=== PATIENT | female | born 1940 | race African-American/Black ===

== ENCOUNTER 2019-04-17 05:15 | Inpatient (IN) | payer MEDICARE, OTHER ==
[~2019-04-17] VITALS: Ht 165.1 cm; Wt 63.5 kg
[~2019-04-17 05:15] MED LIST: AMLO10TA4 PO; DIGO125T PO; LISI1TAB5 PO; METO1TAB11 PO; POTA20TA82 PO; PRAV40TA2 PO; RANI-376 PO; VENTOLIN HFA18 GM IH
[2019-04-17 05:52] LABS: BASO % 1 % (0-3); EOS % 0 % (0-3); HEMATOCRIT 50.7 % (36.0-47.0); HEMOGLOBIN 17.4 g/dL (12.0-15.5); LYMPH % 11 % (24-48); MEAN CORPUSCULAR HEMOGLOBIN 33 pg (25-35); MEAN CORPUSCULAR HGB CONC 34 g/dL (31-37); MEAN CORPUSCULAR VOLUME 95 fL (79-100); MONO # 0.9 x10^3/uL (0.0-1.1); MONO % 11 % (0-9); NEUT # 6.5 x10^3uL (1.8-7.7); NEUT % 77 % (31-73); PLATELET COUNT 193 x10^3/uL (140-400); RED BLOOD COUNT 5.35 x10^6/uL (3.50-5.40); RED CELL DISTRIBUTION WIDTH 14.9 % (11.5-14.5); WHITE BLOOD COUNT 8.4 x10^3/uL (4.0-11.0)
--- NOTE | 2019-04-17 05:52 | PHYS DOC ---
Past Medical History Past Medical History: A-Fib Additional Past Medical Histor: colon cancer (MAGDA RICE Jr., DO) Past Surgical History: Other Additional Past Surgical Histo: STOMACH AND COLON SURGERY FOR CA (MAGDA RICE Jr., DO) Alcohol Use: None Drug Use: None (MAGDA RICE Jr., DO) Smokin Pack Per Day (GIRALDO,PJ Ann Marie DO) Adult General Chief Complaint Chief Complaint: MULTIPLE COMPLAINTS HPI HPI Patient is an 79-year-old female who presents with complaint of cough and shortness of breath that is been present for last few days, since . Patient states that she actually has had shortness of breath for a long time but states that was when things had gotten to the point where it was almost intolerable. She states that she just feels like she can't get enough air and at this point. Patient denies any chest pain or fever. She also denies any lower extremity pain but does state that she has some swelling in her legs.[] (MAGDA RICE Jr., DO) Review of Systems Review of Systems Constitutional: Denies fever or chills [] Respiratory: Positive cough and shortness of breath [] Cardiovascular: No additional information not addressed in HPI [] GI: Denies abdominal pain, nausea, vomiting or diarrhea [] Integument: Denies rash or skin lesions [] Neurologic: Denies headache, focal weakness or sensory changes [] All other systems were reviewed and found to be within normal limits, except as documented in this note. (MAGDA RICE Jr., DO) Current Medications Current Medications Current Medications Medications (Trade) Dose Ordered Sig/Jamee Start Time Stop Time Status Last Admin Dose Admin Furosemide (Lasix) 40 mg 1X ONCE 04/17/19 07:00 04/17/19 07:01 DC 04/17/19 06:54 40 MG Info (CONTRAST GIVEN -- Rx MONITORING) 1 each PRN DAILY PRN 04/17/19 07:30 04/19/19 07:29 Iohexol (Omnipaque 350 Mg/ml) 75 ml 1X ONCE 04/17/19 07:30 04/17/19 07:31 DC 04/17/19 07:30 75 ML Metoprolol Tartrate (Lopressor Vial) 5 mg 1X ONCE 04/17/19 07:15 04/17/19 07:16 DC 04/17/19 07:14 5 MG Nitroglycerin (Nitro-Bid Oint) 1 inch STK-MED ONCE 04/17/19 06:50 04/17/19 06:51 DC (PJ GIRALDO DO) Allergies Allergies Allergies Coded Allergies Type Severity Reaction Last Updated Verified No Known Drug Allergies 03/17/14 No (PJ GIRALDO DO) Physical Exam Physical Exam Constitutional: Well developed, well nourished, no acute distress, non-toxic appearance. [] HENT: Normocephalic, atraumatic, bilateral external ears normal, oropharynx moist, no oral exudates, nose normal. [] Eyes: PERRLA, EOMI, conjunctiva normal, no discharge. [] Neck: Normal range of motion, no tenderness, supple, no stridor. [] Cardiovascular: Tachycardic rate with irregular rhythm[] Lungs & Thorax: Fine rhonchi are noted bilaterally, left greater than right to auscultation [] Abdomen: Bowel sounds normal, soft, no tenderness. [] Skin: Warm, dry, no erythema, no rash. [] Extremities: No tenderness, no cyanosis, no clubbing, ROM intact, with nonpitting edema. [] Neurologic: Alert and oriented X 3, no focal deficits noted. [] (MAGDA RICE Jr. DO) Current Patient Data Vital Signs Vital Signs Date Time Temp Pulse Resp B/P (MAP) Pulse Ox O2 Delivery O2 Flow Rate FiO2 04/17/19 07:30 88 34 175/116 (135) 96 Room Air 04/17/19 05:20 98.7 98.7 (PJ GIRALDO DO) Lab Values Laboratory Tests Test 04/17/19 05:35 White Blood Count 8.4 x10^3/uL (4.0-11.0) Red Blood Count 5.35 x10^6/uL (3.50-5.40) Hemoglobin 17.4 g/dL (12.0-15.5) H Hematocrit 50.7 % (36.0-47.0) H Mean Corpuscular Volume 95 fL (79-100) Mean Corpuscular Hemoglobin 33 pg (25-35) Mean Corpuscular Hemoglobin Concent 34 g/dL (31-37) Red Cell Distribution Width 14.9 % (11.5-14.5) H Platelet Count 193 x10^3/uL (140-400) Neutrophils (%) (Auto) 77 % (31-73) H Lymphocytes (%) (Auto) 11 % (24-48) L Monocytes (%) (Auto) 11 % (0-9) H Eosinophils (%) (Auto) 0 % (0-3) Basophils (%) (Auto) 1 % (0-3) Neutrophils # (Auto) 6.5 x10^3uL (1.8-7.7) Lymphocytes # (Auto) 1.0 x10^3/uL (1.0-4.8) Monocytes # (Auto) 0.9 x10^3/uL (0.0-1.1) Eosinophils # (Auto) 0.0 x10^3/uL (0.0-0.7) Basophils # (Auto) 0.0 x10^3/uL (0.0-0.2) D-Dimer (Tierney) 0.31 ug/mlFEU (0.00-0.50) Sodium Level 130 mmol/L (136-145) L Potassium Level 3.4 mmol/L (3.5-5.1) L Chloride Level 91 mmol/L (98-107) L Carbon Dioxide Level 30 mmol/L (21-32) Anion Gap 9 (6-14) Blood Urea Nitrogen 14 mg/dL (7-20) Creatinine 1.0 mg/dL (0.6-1.0) Estimated GFR (Cockcroft-Gault) 64.6 BUN/Creatinine Ratio 14 (6-20) Glucose Level 143 mg/dL (70-99) H Calcium Level 9.7 mg/dL (8.5-10.1) Total Bilirubin 0.7 mg/dL (0.2-1.0) Aspartate Amino Transferase (AST) 46 U/L (15-37) H Alanine Aminotransferase (ALT) 30 U/L (14-59) Alkaline Phosphatase 142 U/L (46-116) H Troponin I Quantitative 0.028 ng/mL (0.000-0.055) XZ-Tbp-O-Type Natriuretic Peptide 3358 pg/mL (0-449) H Total Protein 8.2 g/dL (6.4-8.2) Albumin 3.7 g/dL (3.4-5.0) Albumin/Globulin Ratio 0.8 (1.0-1.7) L Digoxin Level 0.4 ng/mL (0.9-2.0) L Digoxin Last Dose Date Unknown Digoxin Last Dose Time Unknown Laboratory Tests 04/17/19 05:35 Laboratory Tests 04/17/19 05:35 (PJ GIRALDO DO) EKG EKG [] Interpretation Time: EKG demonstrates tachycardia with rate of 125. (MAGDA RICE Jr., DO) Radiology/Procedures Radiology/Procedures [] (MAGDA RICE Jr., DO) Radiology/Procedures [facility] [address] [place] [address] IMAGING REPORT Signed PATIENT: VALE AVALOS ACCOUNT: [id number] : 1940 LOCATION: ER AGE: 79 SEX: F EXAM STATUS: REG ER ORD. PHYSICIAN: PJ GIRALDO DO REASON: shortness of air, worsening PROCEDURE: CT ANGIOGRAPHY CHEST CTA of the chest with contrast, 04/17/2019: HISTORY: Shortness of breath Multidetector CT imaging was performed following an IV bolus injection of iodinated contrast material. Multiplanar reconstructions were produced including coronal and sagittal MIP images. No filling defects are seen in the central pulmonary arteries to suggest pulmonary emboli. There is moderate calcific plaquing of the thoracic aorta and its branches including the coronary arteries. The heart is generally enlarged. There are mediastinal and hilar calcifications compatible with old granulomatous disease. There are mildly prominent precarinal, subcarinal and right hilar lymph nodes. The precarinal node measures 1.3 cm in short axis dimension. There are scattered pulmonary lucencies, particularly in the upper lobes compatible with emphysema. There are scattered linear parenchymal scars. There are more prominent streaky parenchymal opacities in the inferior aspect of the right middle lobe abutting the oblique fissure compatible with atelectasis and/or scarring. Calcifications in both lungs are compatible with old granulomatous disease. There is a 1.5 cm noncalcified pulmonary nodule in the lateral aspect of the right upper lobe. No other pulmonary mass is seen. There is no evidence of pleural fluid. There is slight focal pleural thickening in the posterior costophrenic angle on the right. Moderate multilevel degenerative changes are present in the spine. IMPRESSION: 1. No CT evidence of central pulmonary emboli. 2. Right upper lobe pulmonary nodule suggesting a primary or secondary malignancy. 3. Emphysema with parenchymal scarring. 4. Streaky atelectasis and/or scarring in the right middle lobe. 5. Mild mediastinal and right hilar adenopathy. 6. Calcific plaquing of the aorta and coronary arteries. PQRS Compliance Statement: One or more of the following individualized dose reduction techniques were utilized for this examination: 1. Automated exposure control 2. Adjustment of the mA and/or kV according to patient size 3. Use of iterative reconstruction technique Electronically signed by: Praveen Gilmore MD (04/17/2019 8:25 AM) [facility] DICTATED and SIGNED BY: PRAVEEN GILMORE MD DATE: 04/17/19824 (PJ GIRALDO DO) Course & Med Decision Making Course & Med Decision Making Pertinent Labs and Imaging studies reviewed. (See chart for details) Patient moved to room upon arrival was evaluated by your medical staff after which an IV was established and blood work was drawn. At this time, patient's workup is pending and patient is being signed out to the oncoming ER physician at 6:00 AM. (MAGDA RICE Jr., DO) Dragon Disclaimer Dragon Disclaimer This electronic medical record was generated, in whole or in part, using a voice recognition dictation system. (MAGDA RICE Jr., DO) Departure Departure Impression: Primary Impression: COPD exacerbation Additional Impressions: Acute pulmonary edema HTN (hypertension) Disposition: ADMITTED INPATIENT Admitting Physician: Jose Rincon (PJ GIRALDO DO) Condition: STABLE Referrals: TOM KIRK (PCP) Problem Qualifiers MAGDA RICE Jr., DO Apr 17, 2019 05:52 PJ GIRALDO DO Apr 17, 2019 08:39
[2019-04-17 06:04] LABS: CALCIUM 9.7 mg/dL (8.5-10.1); GFR 64.6; POTASSIUM 3.4 mmol/L (3.5-5.1)
[2019-04-17 06:10] LABS: ALBUMIN 3.7 g/dL (3.4-5.0); ALBUMIN/GLOBULIN RATIO 0.8 (1.0-1.7); TOTAL BILIRUBIN 0.7 mg/dL (0.2-1.0); TOTAL PROTEIN 8.2 g/dL (6.4-8.2)
--- NOTE | 2019-04-17 06:31 | RAD ---
Chest AP portable at 0526: Reason for examination: Short of breath. Comparison is made to previous study dated 03/25/2014. The heart size is enlarged. Mediastinum is unremarkable. Lung hco show a 1.5 cm nodule in the right upper lobe. There is also some mild haziness at the right apex which may reflect some infiltrate. No pleural effusions are seen. No acute bony abnormalities are seen. IMPRESSION: Cardiomegaly. 1.5 cm nodule in the right upper lobe. Hazy density at the right apex which may reflect infiltrate. Electronically signed by: Inga Rich MD (04/17/2019 6:28 AM) [id number]
--- NOTE | 2019-04-17 06:46 | EKG ---
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
[2019-04-17] MEDS ORDERED: NITROGLYCERIN OINT 1 GM PACKET. ONE (06:50)
[2019-04-17] MEDS ORDERED: FUROSEMIDE 40 MG/4 ML VIAL. IVP ONE (07:00)
[2019-04-17] MEDS ORDERED: NITROGLYCERIN OINT 1 GM PACKET. TP ONE (07:00)
[2019-04-17 07:09] LABS: DIG 0.4 ng/mL (0.9-2.0)
[2019-04-17] MEDS ORDERED: METOPROLOL TARTRATE 5 MG/5 ML VIAL. IVP ONE ×2 (07:15→09:15)
[2019-04-17] MEDS ORDERED: CONTRAST GIVEN. MC PRN (07:30)
[2019-04-17] MEDS ORDERED: IOHEXOL 350 MG/ML 100 ML VIAL. IV ONE (07:30)
--- NOTE | 2019-04-17 08:28 | RAD ---
CTA of the chest with contrast, 04/17/2019: HISTORY: Shortness of breath Multidetector CT imaging was performed following an IV bolus injection of iodinated contrast material. Multiplanar reconstructions were produced including coronal and sagittal MIP images. No filling defects are seen in the central pulmonary arteries to suggest pulmonary emboli. There is moderate calcific plaquing of the thoracic aorta and its branches including the coronary arteries. The heart is generally enlarged. There are mediastinal and hilar calcifications compatible with old granulomatous disease. There are mildly prominent precarinal, subcarinal and right hilar lymph nodes. The precarinal node measures 1.3 cm in short axis dimension. There are scattered pulmonary lucencies, particularly in the upper lobes compatible with emphysema. There are scattered linear parenchymal scars. There are more prominent streaky parenchymal opacities in the inferior aspect of the right middle lobe abutting the oblique fissure compatible with atelectasis and/or scarring. Calcifications in both lungs are compatible with old granulomatous disease. There is a 1.5 cm noncalcified pulmonary nodule in the lateral aspect of the right upper lobe. No other pulmonary mass is seen. There is no evidence of pleural fluid. There is slight focal pleural thickening in the posterior costophrenic angle on the right. Moderate multilevel degenerative changes are present in the spine. IMPRESSION: 1. No CT evidence of central pulmonary emboli. 2. Right upper lobe pulmonary nodule suggesting a primary or secondary malignancy. 3. Emphysema with parenchymal scarring. 4. Streaky atelectasis and/or scarring in the right middle lobe. 5. Mild mediastinal and right hilar adenopathy. 6. Calcific plaquing of the aorta and coronary arteries. PQRS Compliance Statement: One or more of the following individualized dose reduction techniques were utilized for this examination: 1. Automated exposure control 2. Adjustment of the mA and/or kV according to patient size 3. Use of iterative reconstruction technique Electronically signed by: Praveen Gilmore MD (04/17/2019 8:25 AM) [facility]
[2019-04-17] MEDS ORDERED: IPRATRPIUM/ALBUTEROL 0.5/2.5MG 3 ML NEBU. NEB ONE (09:00)
[2019-04-17] MEDS ORDERED: methylPREDNISolone SOD SUCC PF 125 MG/2 ML VIAL. IV ONE (09:00)
[2019-04-17] MEDS ORDERED: ONDANSETRON PF 4 MG/2 ML VIAL. IV PRN (09:00)
[2019-04-17] MEDS ORDERED: amLODIPine BESYLATE 5 MG TABLET PO ONE (09:15)
[2019-04-17 09:58] VITALS: BP 193/118
--- NOTE | 2019-04-17 10:02 | PDOC2 ---
HOLLY MORAN MARKETING PRODUCTION COORDINATOR 04/17/19 1002: CARDIAC CONSULT DATE OF CONSULT Date of Consult DATE: 04/17/19 TIME: 09:57 REASON FOR CONSULT Reason for Consult: CHF REFERRING PHYSICIAN Referring Physician: Dr. Rapp SOURCE Source: Chart review, Patient HISTORY OF PRESENT ILLNESS HISTORY OF PRESENT ILLNESS This is an 79 yo female who presented secondary to shortness of breath. Patient reports shortness of breath has been present for over a year, but was signi ficantly worse over the weekend. Has non-productive cough. No fevers/chills. No significant LE edema. No chest pain, palpitations, dizziness, diaphoresis, or nausea/vomiting. No specific orthopnea, but has been unable to sleep due to breathing. Is somewhat of a poor historian. PAST MEDICAL HISTORY Cardiovascular: AFIB (paroxysmal ), HTN Pulmonary: Pneumonia CENTRAL NERVOUS SYSTEM: CVA GI: Peptic Ulcer disease Heme/Onc: Cancer (colon) Hepatobiliary: No pertinent hx Psych: Anxiety Musculoskeletal: Osteoarthritis Rheumatologic: No pertinent hx Infectious disease: No pertinent hx ENT: No pertinent hx Renal/: No pertinent hx Endocrine: No pertinent hx Dermatology: No pertinent hx PAST SURGICAL HISTORY Past Surgical History: Hysterectomy, Colon Resection, Other (gastrectomy) FAMILY HISTORY Family History: Other (no pertinent hx) SOCIAL HISTORY Smoke: 1 pack per day ALCOHOL: none Drugs: None Lives: Alone CURRENT MEDICATIONS CURRENT MEDICATIONS Current Medications Medications (Trade) Dose Ordered Sig/Jamee Route PRN Reason Start Time Stop Time Status Last Admin Dose Admin Furosemide (Lasix) 40 mg 1X ONCE IVP 04/17/19 07:00 04/17/19 07:01 DC 04/17/19 06:54 Nitroglycerin (Nitro-Bid Oint) 1 inch 1X ONCE TP 04/17/19 07:00 04/17/19 07:01 DC 04/17/19 06:59 Metoprolol Tartrate (Lopressor Vial) 5 mg 1X ONCE IVP 04/17/19 07:15 04/17/19 07:16 DC 04/17/19 07:14 Iohexol (Omnipaque 350 Mg/ml) 75 ml 1X ONCE IV 04/17/19 07:30 04/17/19 07:31 DC 04/17/19 07:30 Methylprednisolone Sodium Succinate (SOLU-Medrol 125MG VIAL) 125 mg 1X ONCE IV 6/10/19 09:00 04/17/19 09:01 DC 04/17/19 09:12 Albuterol/ Ipratropium (Duoneb) 3 ml 1X ONCE NEB 04/17/19 09:00 04/17/19 09:01 DC 04/17/19 09:10 Metoprolol Tartrate (Lopressor Vial) 5 mg 1X ONCE IVP 04/17/19 09:15 04/17/19 09:16 DC 04/17/19 09:13 ALLERGIES ALLERGIES: Coded Allergies: No Known Drug Allergies (Unverified , 03/17/14) ROS Review of System 14 point ROS conducted with pertinent positives noted above in HPI. PHYSICAL EXAM General: Alert, Oriented X3, Cooperative, No acute distress HEENT: Atraumatic, Mucous membr. moist/pink Lungs: Other (expiratroy wheezing) Heart: Normal S1, Normal S2, Other (IRR; tele AFIB rate near 90) Abdomen: Soft, No tenderness Extremities: No edema, Normal pulses Skin: No significant lesion Neuro: Normal speech, Sensation intact Psych/Mental Status: Mental status NL, Mood NL MUSCULOSKELETAL: Osteoarthritic changes both hands VITALS VITALS Vital Signs Date Time Temp Pulse Resp B/P (MAP) Pulse Ox O2 Delivery O2 Flow Rate FiO2 04/17/19 09:13 110 182/126 04/17/19 09:11 91 Room Air 04/17/19 09:00 35 04/17/19 05:20 98.7 98.7 LABS Lab: Laboratory Tests Test 04/17/19 05:35 White Blood Count 8.4 x10^3/uL (4.0-11.0) Red Blood Count 5.35 x10^6/uL (3.50-5.40) Hemoglobin 17.4 g/dL (12.0-15.5) Hematocrit 50.7 % (36.0-47.0) Mean Corpuscular Volume 95 fL (79-100) Mean Corpuscular Hemoglobin 33 pg (25-35) Mean Corpuscular Hemoglobin Concent 34 g/dL (31-37) Red Cell Distribution Width 14.9 % (11.5-14.5) Platelet Count 193 x10^3/uL (140-400) Neutrophils (%) (Auto) 77 % (31-73) Lymphocytes (%) (Auto) 11 % (24-48) Monocytes (%) (Auto) 11 % (0-9) Eosinophils (%) (Auto) 0 % (0-3) Basophils (%) (Auto) 1 % (0-3) Neutrophils # (Auto) 6.5 x10^3uL (1.8-7.7) Lymphocytes # (Auto) 1.0 x10^3/uL (1.0-4.8) Monocytes # (Auto) 0.9 x10^3/uL (0.0-1.1) Eosinophils # (Auto) 0.0 x10^3/uL (0.0-0.7) Basophils # (Auto) 0.0 x10^3/uL (0.0-0.2) D-Dimer (Tierney) 0.31 ug/mlFEU (0.00-0.50) Sodium Level 130 mmol/L (136-145) Potassium Level 3.4 mmol/L (3.5-5.1) Chloride Level 91 mmol/L (98-107) Carbon Dioxide Level 30 mmol/L (21-32) Anion Gap 9 (6-14) Blood Urea Nitrogen 14 mg/dL (7-20) Creatinine 1.0 mg/dL (0.6-1.0) Estimated GFR (Cockcroft-Gault) 64.6 BUN/Creatinine Ratio 14 (6-20) Glucose Level 143 mg/dL (70-99) Calcium Level 9.7 mg/dL (8.5-10.1) Total Bilirubin 0.7 mg/dL (0.2-1.0) Aspartate Amino Transf (AST/SGOT) 46 U/L (15-37) Alanine Aminotransferase (ALT/SGPT) 30 U/L (14-59) Alkaline Phosphatase 142 U/L (46-116) Troponin I Quantitative 0.028 ng/mL (0.000-0.055) MU-Jwc-[id number]-Type Natriuretic Peptide 3358 pg/mL (0-449) Total Protein 8.2 g/dL (6.4-8.2) Albumin 3.7 g/dL (3.4-5.0) Albumin/Globulin Ratio 0.8 (1.0-1.7) Digoxin Level 0.4 ng/mL (0.9-2.0) Digoxin Last Dose Date Unknown Digoxin Last Dose Time Unknown ECHOCARDIOGRAM ECHOCARDIOGRAM <Conclusion> The left ventricular systolic function is normal. The Ejection Fraction is 55- 60%. The aortic valve is thickened and calcified but opens well. Doppler and Color-flow revealed trace to mild mitral regurgitation. Doppler and Color Flow revealed mild tricuspid regurgitation. Right ventricular systolic pressure is calculated at 40-45 mmHg DATE: 03/13/14 1736 ASSESSMENT/PLAN ASSESSMENT/PLAN 1. Acute respiratory failure with suspected AE COPD. NT Pro BNP mildly elevated, but imaging without significant pleural fluid. Received IV Lasix in ED. 2. Accelerated hypertension; remains labile 3. Mild acute diastolic HF 4. PAFIB; intermittent RVR in ED. presently AFIB with cotrolled rate. On Eliquis for stroke prevention 5. Abnormal CT chest; RUL nodule suggesting a primary or secondary malignancy. 6. CAD; noted on chest CTA. CP free 7. Hyperlipidemia; statin 8. Hyponatremia 9. Hypokalemia 10. H/o CVA 11. Tobaccoism; discussed/encouraged cessation Recommendations Echo to assess LV systolic function Metoprolol for rate control Resume home antiHTN; titrate as warranted. Hydralazine IV PRN Hold OAC for now pending pulmonary evaluation given new lung nodule and possible biopsy. Consider outpatient ischemic evaluation ALEX LOVING MD 04/17/196: CARDIAC CONSULT ASSESSMENT/PLAN ASSESSMENT/PLAN Pt. seen and examined. 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 Supportive care. HOLLY MORAN APRN Apr 17, 2019 10:02 ALEX LOVING MD Apr 17, 2019 21:16
[2019-04-17] MEDS ORDERED: MAGNESIUM HYDROXIDE 2,400 MG/30 ML ORAL.SUSP. PO PRN (10:15)
[2019-04-17] MEDS ORDERED: hydrALAZINE 20 MG/ML VIAL. IVP PRN (10:15)
[2019-04-17] MEDS ORDERED: POTASSIUM CHLORIDE 20 MEQ TABLET.ER. PO ONE (10:15)
[2019-04-17] MEDS ORDERED: ACETAMINOPHEN 325 MG TABLET. PO PRN (10:15)
[2019-04-17] MEDS ORDERED: ONDANSETRON ODT 4 MG TAB.RAPDIS. PO PRN (10:15)
--- NOTE | 2019-04-17 10:17 | PDOC ---
Provider Note Provider Note history and physical dictated # [id number] RIK MURRAY MD Apr 17, 2019 10:17
[2019-04-17 10:26] LABS: CHOLESTEROL/HDL RATIO 1.9
[2019-04-17] MEDS: amLODIPine BESYLATE 10 MG TABLET PO SCH (10:48)
[2019-04-17 10:52] VITALS: BP 168/109
--- NOTE | 2019-04-17 10:57 | HP ---
ADMIT DATE: 04/17/2019 LOCATION: She is in room 203. 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 She has had a dry cough. Denies any wheezing or fever or chills. In the Emergency Room, she was noted to be in atrial fibrillation. EKG showed a ventricular rate of 125, but her heart rate was around 80s to low 90s when I saw her in the exam room in atrial fibrillation. She denied any chest pain. As mentioned, she had a dry cough with no sputum. During her workup in the Emergency Room, she had a chest x-ray done, which showed a 1.5 cm right upper lobe lung nodule and hazy density in the right apex with cardiomegaly. A CAT scan of the chest, angiogram was also ordered by the Emergency Room doctor, which showed a right upper lobe pulmonary nodule that was 1.5 cm in size, suggesting a primary or secondary malignancy. She also had emphysema with lung scarring and some streaky atelectasis and scarring in right middle lobe with mild mediastinal and right hilar adenopathy and calcific plaquing of the aorta and coronary arteries. She was admitted to the hospital for further evaluation and treatment of the shortness of breath and right upper lobe lung nodule. ALLERGIES AND INTOLERANCES: None. It should be noted that she also has accelerated hypertension. Her blood pressure was quite high in the Emergency Room. MEDICATIONS: Include amlodipine 10 mg every day, aspirin 81 mg every day, Flexeril 5 mg every 8 hours p.r.n. for leg cramps, digoxin 0.125 mg every day, Eliquis 5 mg b.i.d., lisinopril HCT 20/12.5 two tablets every day, metoprolol tartrate 50 mg b.i.d., potassium chloride 20 mEq every day, pravastatin 40 mg every day, ProAir inhaler p.r.n. and Zantac 150 mg every day. PAST MEDICAL HISTORY: Significant for perforated gastric ulcer, treated with a gastrectomy in 2009, hypertension, colon polyps in 2011. She has a history of colon cancer with the sigmoid colectomy in 2009, hysterectomy, cerebrovascular accident with late effects of right-sided hemiparesis and her last EGD was 2010. She has paroxysmal atrial fibrillation. SOCIAL HISTORY: She does not drink alcohol. Smokes 1 pack per day of cigarettes. FAMILY HISTORY: Noncontributory. REVIEW OF SYSTEMS: GENERAL: No fever, chills or sweats in the last 3 days. CARDIOVASCULAR: No chest pain. PULMONARY: She had the shortness of breath and dry cough. GASTROINTESTINAL: No diarrhea. ENDOCRINE: No diabetes mellitus. SKIN: No rashes. The rest of systems reviewed are negative except as stated in history of present illness. PHYSICAL EXAMINATION: VITAL SIGNS: Temperature is 98.5 degrees, apical pulse is irregular at 96, respiratory rate is 18, blood pressure is 193/119. Oxygen saturation 94% on room air. HEENT: Eyes, gaze is conjugate. Extraocular muscles are intact. Mouth: Tongue is midline without yeast. She is edentulous. NECK: No cervical lymphadenopathy or JVD. HEART: Reveals an S1, S2. There is no S3 or murmur. LUNGS: Reveal decreased breath sounds bilaterally. I did not hear any crackles or wheezes. ABDOMEN: Soft, nontender. There is no hepatosplenomegaly, masses or tenderness. EXTREMITIES: Lower extremities without edema. SKIN: No rashes. NEUROLOGIC: Revealed no facial weakness. She has got good bilateral handgrips and biceps strength. Able to dorsi and plantarflex both feet, bend her knees and raise her legs up in the air symmetrically. LABORATORY DATA: Reviewed of her laboratory tests, her white count was 8.4, hemoglobin 17.4, platelet count 193,000, 77 polys and 11 lymphocytes. D-dimer was 0.31. Sodium 130, potassium 3.4, chloride 91, total CO2 was 30, BUN 14, creatinine 1.0. SGOT was 46, SGPT of 30, alkaline phosphatase 142, total bilirubin 0.7. Troponin levels 0.028 and proBNP was 3358, albumin 3.7. The CAT scan of the chest angiogram and chest x-ray as stated above. Electrocardiogram showed atrial fibrillation. The Emergency Room physician gave her 40 mg Lasix IV and gave her metoprolol 0.5 mg IV x 1 and DuoNeb nebulizer treatment. We gave her amlodipine 10 mg x 1. ASSESSMENT: 1. Acute exacerbation of chronic obstructive pulmonary disease. I do not see any evidence of congestive heart failure clinically. 2. Paroxysmal atrial fibrillation. She had an increased ventricular rate and atrial fibrillation in the Emergency Room and ventricular rate is controlled. 3. Right upper lobe lung nodule. 4. Accelerated hypertension. 5. Hypokalemia. 6. Hyponatremia. 7. Coronary artery disease noted on a CAT scan of the chest. PLAN: At this time is to consult Dr. Rubalcava for Pulmonary and Dr. Funk for Cardiology. We will get an echocardiogram. We will order Lovenox for deep vein thrombosis prophylaxis. We will put her on ipratropium nebulizer treatments and avoid the albuterol, which can cause an increased heart rate and atrial fibrillation. We will also put her on some IV Solu-Medrol. She has a right upper lobe lung nodule, and we will defer that evaluation to the media promoter. We will give her some potassium chloride. We will hold off on further furosemide. Increase her metoprolol to try to control her ventricular rate. We will have to watch for any wheezing or COPD. She also needs to quit smoking cigarettes. RIK MURRAY MD DR: PATRICIA/kaya JOB#: [id number] / [id number]
[2019-04-17] MEDS ORDERED: APIXABAN 5 MG TABLET. PO SCH (11:00)
[2019-04-17] MEDS ORDERED: METOPROLOL TART IMMED RELEASE 50 MG TABLET. PO SCH (11:00)
[2019-04-17] MEDS: NICOTINE 21MG PATCH. TD SCH (11:00)
[2019-04-17] MEDS ORDERED: ENOXAPARIN 40 MG/0.4 ML SYRINGE. SQ SCH (11:00)
[2019-04-17] MEDS ORDERED: methylPREDNISolone SOD SUCC PF 40 MG/ML VIAL. IV SCH (11:00)
--- NOTE | 2019-04-17 11:00 | NUR ---
Patient arrived to room 203 from ER via bed, patient transferred to our bed with minimal assist. Patient afib on the monitor with controlled rate, patient alert and oriented, unit routines explained. Call light within reach, will continue to monitor.
[2019-04-17] MEDS: DIGOXIN 125 MCG TABLET. PO SCH (11:35)
[2019-04-17] MEDS: MULTIVITAMIN with MINERAL TABLET. PO SCH (11:36)
[2019-04-17] MEDS: ASPIRIN CHEWABLE 81 MG TABLET. PO SCH (11:36)
[2019-04-17] MEDS: LISINOPRIL 20 MG TABLET PO SCH (11:39)
[2019-04-17] MEDS: ENOXAPARIN 30 MG/0.3 ML SYRINGE. SQ SCH (11:39)
[2019-04-17] MEDS: hydroCHLOROthiazide 25 MG TABLET PO SCH (11:39)
[2019-04-17] MEDS ORDERED: IPRATRPIUM/ALBUTEROL 0.5/2.5MG 3 ML NEBU. NEB SCH (12:00)
--- NOTE | 2019-04-17 14:58 | CARD ---
MR#: [id number] Date of Study: 04/17/2019 Ordering Physician: HOLLY MORAN, Referring Physician: RIK MURRAY Tech: Tila Brooks RDCS APPROVED REPORT EXAM: Two-dimensional and M-mode echocardiogram with Doppler and color Doppler. Other Information Quality : Fair INDICATION Dyspnea 2D DIMENSIONS RVDd2.6 (2.9-3.5cm)Left Atrium(2D)5.2 (1.6-4.0cm) IVSd1.0 (0.7-1.1cm)Aortic Root(2D)2.8 (2.0-3.7cm) LVDd4.1 (3.9-5.9cm)LVOT Diameter2.1 (1.8-2.4cm) PWd1.0 (0.7-1.1cm)LVDs3.4 (2.5-4.0cm) FS (%) 25.0 %SV13.7 ml LVEF(%)50.0 (>50%) Aortic Valve AoV Peak Eliseo.132.0cm/sAoV VTI18.8cm AO Peak GR.7.0mmHgLVOT Peak Eliseo.85.1cm/s LVOT VTI 10.94cmAO Mean GR.4mmHg DANIEL (VMAX)2.94qg1HLW (VTI)1.94cm2 Tricuspid Valve TR P. Kygbwkgm694ik/sRAP EECYZGRI2lhFe TR Peak Gr.75fzUlWYTU27ygTx Pulmonary Vein S1 Ketnrlub57.8cm/sD2 Oloboaio02.2cm/s LEFT VENTRICLE The left ventricle is normal size. There is normal left ventricular wall thickness. The Ejection Frac tion is 50-55%. There is normal LV segmental wall motion. The left ventricular diastolic function and filling is normal for age. RIGHT VENTRICLE The right ventricle is normal size. The right ventricular systolic function is normal. ATRIA The left atrium is severely dilated. The right atrium is moderately dilated. The interatrial septum i s intact with no evidence for an atrial septal defect or patent foramen ovale as noted on 2-D or Dopp ler imaging. AORTIC VALVE The aortic valve is calcified but opens well. Doppler and Color Flow revealed no significant aortic r egurgitation. There is no significant aortic valvular stenosis. MITRAL VALVE The mitral valve is calcified but opens well. There is no evidence of mitral valve prolapse. There is no mitral valve stenosis. Doppler and Color-flow revealed trace mitral regurgitation. TRICUSPID VALVE The tricuspid valve is normal in structure and function. Doppler and Color Flow revealed mild tricusp id regurgitation.There is moderate pulmonary hypertension.The PA pressure was estimated at 45 mmHg. T here is no tricuspid valve stenosis. PULMONIC VALVE The pulmonic valve is not well visualized. Doppler and Color Flow revealed no pulmonic valvular regur gitation. There is no pulmonic valvular stenosis. GREAT VESSELS The aortic root is normal in size. The ascending aorta is normal in size. The IVC was not visualized. PERICARDIAL EFFUSION There is no evidence of significant pericardial effusion. Critical Notification Critical Value: No <Conclusion> The Ejection Fraction is 50-55%. There is normal LV segmental wall motion. The left atrium is severely dilated. Doppler and Color Flow revealed mild tricuspid regurgitation.There is moderate pulmonary hypertension .The PA pressure was estimated at 45 mmHg. Signed by : Matthew Ambriz, Electronically Approved : 04/17/2019 14:57:41
[2019-04-17 15:00] VITALS: BP 153/99
--- NOTE | 2019-04-17 15:21 | PDOC ---
PULMONARY PROGRESS NOTES Vitals Vital Signs Date Time Temp Pulse Resp B/P (MAP) Pulse Ox O2 Delivery O2 Flow Rate FiO2 04/17/19 12:58 94 Nasal Cannula 2.0 04/17/19 11:39 102 209/104 04/17/19 09:58 98.5 18 98.5 Lungs: Clear Labs Laboratory Tests Test 04/17/19 05:35 White Blood Count 8.4 x10^3/uL (4.0-11.0) Red Blood Count 5.35 x10^6/uL (3.50-5.40) Hemoglobin 17.4 g/dL (12.0-15.5) Hematocrit 50.7 % (36.0-47.0) Mean Corpuscular Volume 95 fL (79-100) Mean Corpuscular Hemoglobin 33 pg (25-35) Mean Corpuscular Hemoglobin Concent 34 g/dL (31-37) Red Cell Distribution Width 14.9 % (11.5-14.5) Platelet Count 193 x10^3/uL (140-400) Neutrophils (%) (Auto) 77 % (31-73) Lymphocytes (%) (Auto) 11 % (24-48) Monocytes (%) (Auto) 11 % (0-9) Eosinophils (%) (Auto) 0 % (0-3) Basophils (%) (Auto) 1 % (0-3) Neutrophils # (Auto) 6.5 x10^3uL (1.8-7.7) Lymphocytes # (Auto) 1.0 x10^3/uL (1.0-4.8) Monocytes # (Auto) 0.9 x10^3/uL (0.0-1.1) Eosinophils # (Auto) 0.0 x10^3/uL (0.0-0.7) Basophils # (Auto) 0.0 x10^3/uL (0.0-0.2) D-Dimer (Tierney) 0.31 ug/mlFEU (0.00-0.50) Sodium Level 130 mmol/L (136-145) Potassium Level 3.4 mmol/L (3.5-5.1) Chloride Level 91 mmol/L (98-107) Carbon Dioxide Level 30 mmol/L (21-32) Anion Gap 9 (6-14) Blood Urea Nitrogen 14 mg/dL (7-20) Creatinine 1.0 mg/dL (0.6-1.0) Estimated GFR (Cockcroft-Gault) 64.6 BUN/Creatinine Ratio 14 (6-20) Glucose Level 143 mg/dL (70-99) Calcium Level 9.7 mg/dL (8.5-10.1) Magnesium Level 1.9 mg/dL (1.8-2.4) Total Bilirubin 0.7 mg/dL (0.2-1.0) Aspartate Amino Transf (AST/SGOT) 46 U/L (15-37) Alanine Aminotransferase (ALT/SGPT) 30 U/L (14-59) Alkaline Phosphatase 142 U/L (46-116) Troponin I Quantitative 0.028 ng/mL (0.000-0.055) MW-Lwf-U-Type Natriuretic Peptide 3358 pg/mL (0-449) Total Protein 8.2 g/dL (6.4-8.2) Albumin 3.7 g/dL (3.4-5.0) Albumin/Globulin Ratio 0.8 (1.0-1.7) Triglycerides Level 75 mg/dL (0-150) Cholesterol Level 175 mg/dL (0-200) LDL Cholesterol, Calculated 69 mg/dL (0-100) VLDL Cholesterol, Calculated 15 mg/dL (0-40) Non-HDL Cholesterol Calculated 84 mg/dL (0-129) HDL Cholesterol 91 mg/dL (40-60) Cholesterol/HDL Ratio 1.9 Thyroid Stimulating Hormone (TSH) 0.325 uIU/mL (0.358-3.74) Digoxin Level 0.4 ng/mL (0.9-2.0) Digoxin Last Dose Date Unknown Digoxin Last Dose Time Unknown Laboratory Tests Test 04/17/19 05:35 White Blood Count 8.4 x10^3/uL (4.0-11.0) Red Blood Count 5.35 x10^6/uL (3.50-5.40) Hemoglobin 17.4 g/dL (12.0-15.5) Hematocrit 50.7 % (36.0-47.0) Mean Corpuscular Volume 95 fL (79-100) Mean Corpuscular Hemoglobin 33 pg (25-35) Mean Corpuscular Hemoglobin Concent 34 g/dL (31-37) Red Cell Distribution Width 14.9 % (11.5-14.5) Platelet Count 193 x10^3/uL (140-400) Neutrophils (%) (Auto) 77 % (31-73) Lymphocytes (%) (Auto) 11 % (24-48) Monocytes (%) (Auto) 11 % (0-9) Eosinophils (%) (Auto) 0 % (0-3) Basophils (%) (Auto) 1 % (0-3) Neutrophils # (Auto) 6.5 x10^3uL (1.8-7.7) Lymphocytes # (Auto) 1.0 x10^3/uL (1.0-4.8) Monocytes # (Auto) 0.9 x10^3/uL (0.0-1.1) Eosinophils # (Auto) 0.0 x10^3/uL (0.0-0.7) Basophils # (Auto) 0.0 x10^3/uL (0.0-0.2) D-Dimer (Tierney) 0.31 ug/mlFEU (0.00-0.50) Sodium Level 130 mmol/L (136-145) Potassium Level 3.4 mmol/L (3.5-5.1) Chloride Level 91 mmol/L (98-107) Carbon Dioxide Level 30 mmol/L (21-32) Anion Gap 9 (6-14) Blood Urea Nitrogen 14 mg/dL (7-20) Creatinine 1.0 mg/dL (0.6-1.0) Estimated GFR (Cockcroft-Gault) 64.6 BUN/Creatinine Ratio 14 (6-20) Glucose Level 143 mg/dL (70-99) Calcium Level 9.7 mg/dL (8.5-10.1) Magnesium Level 1.9 mg/dL (1.8-2.4) Total Bilirubin 0.7 mg/dL (0.2-1.0) Aspartate Amino Transf (AST/SGOT) 46 U/L (15-37) Alanine Aminotransferase (ALT/SGPT) 30 U/L (14-59) Alkaline Phosphatase 142 U/L (46-116) Troponin I Quantitative 0.028 ng/mL (0.000-0.055) CU-Sew-D-Type Natriuretic Peptide 3358 pg/mL (0-449) Total Protein 8.2 g/dL (6.4-8.2) Albumin 3.7 g/dL (3.4-5.0) Albumin/Globulin Ratio 0.8 (1.0-1.7) Triglycerides Level 75 mg/dL (0-150) Cholesterol Level 175 mg/dL (0-200) LDL Cholesterol, Calculated 69 mg/dL (0-100) VLDL Cholesterol, Calculated 15 mg/dL (0-40) Non-HDL Cholesterol Calculated 84 mg/dL (0-129) HDL Cholesterol 91 mg/dL (40-60) Cholesterol/HDL Ratio 1.9 Thyroid Stimulating Hormone (TSH) 0.325 uIU/mL (0.358-3.74) Digoxin Level 0.4 ng/mL (0.9-2.0) Digoxin Last Dose Date Unknown Digoxin Last Dose Time Unknown Medications Active Scripts Medications Dose Route/Sig Max Daily Dose Days Date Category Potassium Chloride 20 Meq Tablet.er 40 Meq PO DAILY 03/13/14 Reported Norvasc (Amlodipine Besylate) 10 Mg Tablet 10 Mg PO DAILY 03/13/14 Reported Lisinopril-Hctz 20-12.5 Mg Tab (Lisinopril/Hydrochlorothiazide) 1 Each Tablet 1 Each PO DAILY 03/13/14 Reported Lopressor Hct 50-25 Tablet (Metoprolol/Hydrochlorothiazide) 1 Each Tablet 50 Mg PO DAILY 03/13/14 Reported Digoxin 125 Mcg Tablet 125 Mcg PO DAILY 03/13/14 Reported Pravastatin Sodium 40 Mg Tablet 40 Mg PO DAILY 03/13/14 Reported Zantac (Ranitidine Hcl) 150 Mg Tablet 150 Mg PO DAILY 03/13/14 Reported Ventolin Hfa (Albuterol Sulfate) 18 Gm Hfa.aer.ad 17 Gm IH PRN DAILY PRN 03/13/14 Reported Impression . FULL NOTE DICTATED AECOPD RUL NODULE WILL HOLD ELLIQUIS AND PERFORM A BX SONI LUTZ MD Apr 17, 2019 15:20
[2019-04-17] MEDS ORDERED: IPRATRPIUM/ALBUTEROL 0.5/2.5MG 3 ML NEBU. ONE (15:52)
[2019-04-17] MEDS: IPRATRPIUM/ALBUTEROL 0.5/2.5MG 3 ML NEBU. NEB SCH ×2 (16:00→20:00)
[2019-04-17] MEDS ORDERED: METOPROLOL TARTRATE 5 MG/5 ML VIAL. IVP PRN (18:00)
[2019-04-17 19:27] VITALS: BP 132/89
[2019-04-17] MEDS: FAMOTIDINE 20 MG TABLET. PO SCH (21:08)
[2019-04-17] MEDS: ATORVASTATIN CALCIUM 10 MG TABLET. PO SCH (21:08)
[2019-04-17] MEDS: methylPREDNISolone SOD SUCC PF 40 MG/ML VIAL. IV SCH (21:09)
[2019-04-17] MEDS: METOPROLOL TART IMMED RELEASE 25 MG TABLET. PO SCH (21:09)
[2019-04-17 22:26] VITALS: BP 148/101
--- NOTE | 2019-04-17 23:55 | CONS ---
DATE OF CONSULTATION: 04/17/2019 REASON FOR CONSULTATION: The patient seen in pulmonary consultation at the request of Dr. Rincon for increasing shortness of air, abnormal CT chest. HISTORY OF PRESENT ILLNESS: The patient is an 79-year-old that presented with increasing shortness of air over the last several days, cough mostly nonproductive. She was seen in the Emergency Department and was admitted. Part of her workup included a CT chest. I reviewed the CT chest, revealing a right upper lobe noncalcified nodule measuring 1.5 cm. She also has some precarinal lymph nodes. There were areas of emphysema with parenchymal scarring and some streaky atelectasis in the right middle lobe. I was asked to see in consultation. The patient continues to do smoke and has been smoking for most of her adult life. She denies hemoptysis. No fever, chills, or night sweats. She does not wear oxygen at home. PAST MEDICAL HISTORY: Remarkable for chronic paroxysmal AFib, hypertension, previous pneumonia, previous CVA, peptic ulcer disease, history of colon cancer, status post resection, osteoporosis, and tobacco dependence. PAST SURGICAL HISTORY: Status post hysterectomy, colon cancer resection, and gastrectomy. FAMILY HISTORY: No family history of lung cancer. SOCIAL HISTORY: She denies any excessive alcohol intake. She does smoke. REVIEW OF SYSTEMS: CONSTITUTIONAL: No fever or chills. EYES: No change in visual acuity. HEENT: No nasal congestion or sore throat. PULMONARY: As indicated above. CARDIOVASCULAR: No chest pain. No pressure. GASTROINTESTINAL: No nausea, vomiting, diarrhea. GENITOURINARY: No dysuria or frequency. MUSCULOSKELETAL: No localized muscle aches or joint pains. SKIN: No new skin rashes. NEUROLOGIC: No headaches, diplopia, or blurred vision. ALLERGIES: No known drug allergies. CURRENT MEDICATIONS: List was reviewed. PHYSICAL EXAMINATION: GENERAL: The patient appeared to be of stated age. VITAL SIGNS: She was currently on 2 liters of oxygen supplementation. HEENT: Eyes, the sclerae were nonicteric. NECK: Jugular venous distention was not elevated. No lymphadenopathy. CHEST: Full expansion. LUNGS: Poor breath sounds with rales and wheezes bilaterally. CARDIOVASCULAR: Regular rate and rhythm with S1, S2, no S3. ABDOMEN: Soft, nontender, nondistended. EXTREMITIES: No clubbing, cyanosis. Minimal edema. NEUROLOGIC: The patient was awake, alert, following commands. A detailed neuro exam was not performed. LABORATORY DATA: Reviewed. White count was normal. Electrolytes were noted. BNP was elevated. TSH was low. Chest x-ray and CT as indicated above. Echocardiogram revealed pulmonary artery pressure of 40-45. Ejection fraction 50-60%. IMPRESSION: 1. Acute hypoxemic respiratory failure. 2. Acute exacerbation of chronic obstructive pulmonary disease. 3. Gfryz-zj-upfxcrl diastolic heart failure. 4. Paroxysmal atrial fibrillation. 5. Incidental finding of right upper lobe noncalcified nodule. 6. Coronary artery disease. 7. Hyperlipidemia. 8. Hyponatremia. 9. History of cerebrovascular accident. 10. Colon cancer. 11. Tobacco dependence. PLAN: 1. Recommend treating acute exacerbation of COPD. 2. Diurese per Cardiology. 3. I reviewed the above findings with the patient. I recommend fine needle aspiration, we will hold Eliquis for 3 days. The patient instructed on the importance of discontinuing tobacco use. I do appreciate the privilege in sharing in the patient's care. SONI LUTZ MD DR: LUIS MANUEL/kaya JOB#: [id number] / [id number]
[2019-04-18 03:50] VITALS: BP 141/90
[2019-04-18 06:37] LABS: BASO % 0 % (0-3); EOS % 0 % (0-3); HEMATOCRIT 48.6 % (36.0-47.0); HEMOGLOBIN 16.2 g/dL (12.0-15.5); LYMPH # 0.9 x10^3/uL (1.0-4.8); LYMPH % 9 % (24-48); MEAN CORPUSCULAR HEMOGLOBIN 32 pg (25-35); MEAN CORPUSCULAR HGB CONC 33 g/dL (31-37); MEAN CORPUSCULAR VOLUME 97 fL (79-100); MONO # 0.5 x10^3/uL (0.0-1.1); MONO % 5 % (0-9); NEUT # 7.9 x10^3uL (1.8-7.7); NEUT % 86 % (31-73); PLATELET COUNT 190 x10^3/uL (140-400); RED CELL DISTRIBUTION WIDTH 15.7 % (11.5-14.5); WHITE BLOOD COUNT 9.3 x10^3/uL (4.0-11.0)
[2019-04-18 06:53] LABS: CREATININE 1.4 mg/dL (0.6-1.0); GFR 43.8; POTASSIUM 3.7 mmol/L (3.5-5.1)
[2019-04-18] MEDS: IPRATRPIUM/ALBUTEROL 0.5/2.5MG 3 ML NEBU. NEB SCH ×4 (07:19→20:18)
[2019-04-18 07:42] VITALS: BP 152/105
[2019-04-18] MEDS: POTASSIUM CHLORIDE 20 MEQ TABLET.ER. PO SCH (08:28)
[2019-04-18] MEDS: hydroCHLOROthiazide 25 MG TABLET PO SCH (08:28)
[2019-04-18] MEDS: ASPIRIN CHEWABLE 81 MG TABLET. PO SCH (08:28)
[2019-04-18] MEDS: methylPREDNISolone SOD SUCC PF 40 MG/ML VIAL. IV SCH ×2 (08:28→20:52)
[2019-04-18] MEDS: DIGOXIN 125 MCG TABLET. PO SCH (08:29)
[2019-04-18] MEDS: METOPROLOL TART IMMED RELEASE 25 MG TABLET. PO SCH ×2 (08:29→20:51)
[2019-04-18] MEDS: amLODIPine BESYLATE 10 MG TABLET PO SCH (08:30)
[2019-04-18] MEDS: MULTIVITAMIN with MINERAL TABLET. PO SCH (08:30)
[2019-04-18] MEDS: LISINOPRIL 20 MG TABLET PO SCH (08:30)
[2019-04-18] MEDS: NICOTINE 21MG PATCH. TD SCH ×2 (08:31→08:33)
[2019-04-18 08:54] LABS: % ATYL 1 % (0-0); % BANDS 12 % (0-9); % LYMPHS 10 % (24-48); % MONOS 3 % (0-10); % SEGS 74 % (35-66)
[2019-04-18 08:55] LABS: ANISOCYTOSIS SLIGHT; PLT ESTIMATE ADEQUATE (ADEQUATE)
--- NOTE | 2019-04-18 09:02 | PDOC ---
PULMONARY PROGRESS NOTES Subjective PT LESS SOA LESS COUGH NO HEMOPTYSIS Vitals Vital Signs Date Time Temp Pulse Resp B/P (MAP) Pulse Ox O2 Delivery O2 Flow Rate FiO2 04/18/19 08:30 75 152/105 04/18/19 07:42 98.4 18 96 Nasal Cannula 2.0 98.4 ROS: No Nausea, No Chest Pain, No Abdominal Pain, No Increase Cough Lungs: Crackles Cardiovascular: S1 Abdomen: Soft, Non-tender Neuro Exam: Alert Extremities: No Edema Skin: Warm Labs Laboratory Tests Test 04/17/19 05:35 04/18/19 05:23 White Blood Count 8.4 x10^3/uL (4.0-11.0) 9.3 x10^3/uL (4.0-11.0) Red Blood Count 5.35 x10^6/uL (3.50-5.40) 5.00 x10^6/uL (3.50-5.40) Hemoglobin 17.4 g/dL (12.0-15.5) 16.2 g/dL (12.0-15.5) Hematocrit 50.7 % (36.0-47.0) 48.6 % (36.0-47.0) Mean Corpuscular Volume 95 fL (79-100) 97 fL (79-100) Mean Corpuscular Hemoglobin 33 pg (25-35) 32 pg (25-35) Mean Corpuscular Hemoglobin Concent 34 g/dL (31-37) 33 g/dL (31-37) Red Cell Distribution Width 14.9 % (11.5-14.5) 15.7 % (11.5-14.5) Platelet Count 193 x10^3/uL (140-400) 190 x10^3/uL (140-400) Neutrophils (%) (Auto) 77 % (31-73) 86 % (31-73) Lymphocytes (%) (Auto) 11 % (24-48) 9 % (24-48) Monocytes (%) (Auto) 11 % (0-9) 5 % (0-9) Eosinophils (%) (Auto) 0 % (0-3) 0 % (0-3) Basophils (%) (Auto) 1 % (0-3) 0 % (0-3) Neutrophils # (Auto) 6.5 x10^3uL (1.8-7.7) 7.9 x10^3uL (1.8-7.7) Lymphocytes # (Auto) 1.0 x10^3/uL (1.0-4.8) 0.9 x10^3/uL (1.0-4.8) Monocytes # (Auto) 0.9 x10^3/uL (0.0-1.1) 0.5 x10^3/uL (0.0-1.1) Eosinophils # (Auto) 0.0 x10^3/uL (0.0-0.7) 0.0 x10^3/uL (0.0-0.7) Basophils # (Auto) 0.0 x10^3/uL (0.0-0.2) 0.0 x10^3/uL (0.0-0.2) D-Dimer (Tierney) 0.31 ug/mlFEU (0.00-0.50) Sodium Level 130 mmol/L (136-145) 136 mmol/L (136-145) Potassium Level 3.4 mmol/L (3.5-5.1) 3.7 mmol/L (3.5-5.1) Chloride Level 91 mmol/L (98-107) 95 mmol/L (98-107) Carbon Dioxide Level 30 mmol/L (21-32) 30 mmol/L (21-32) Anion Gap 9 (6-14) 11 (6-14) Blood Urea Nitrogen 14 mg/dL (7-20) 30 mg/dL (7-20) Creatinine 1.0 mg/dL (0.6-1.0) 1.4 mg/dL (0.6-1.0) Estimated GFR (Cockcroft-Gault) 64.6 43.8 BUN/Creatinine Ratio 14 (6-20) Glucose Level 143 mg/dL (70-99) 202 mg/dL (70-99) Calcium Level 9.7 mg/dL (8.5-10.1) 9.0 mg/dL (8.5-10.1) Magnesium Level 1.9 mg/dL (1.8-2.4) Total Bilirubin 0.7 mg/dL (0.2-1.0) Aspartate Amino Transf (AST/SGOT) 46 U/L (15-37) Alanine Aminotransferase (ALT/SGPT) 30 U/L (14-59) Alkaline Phosphatase 142 U/L (46-116) Troponin I Quantitative 0.028 ng/mL (0.000-0.055) XP-Ydb-V-Type Natriuretic Peptide 3358 pg/mL (0-449) Total Protein 8.2 g/dL (6.4-8.2) Albumin 3.7 g/dL (3.4-5.0) Albumin/Globulin Ratio 0.8 (1.0-1.7) Triglycerides Level 75 mg/dL (0-150) Cholesterol Level 175 mg/dL (0-200) LDL Cholesterol, Calculated 69 mg/dL (0-100) VLDL Cholesterol, Calculated 15 mg/dL (0-40) Non-HDL Cholesterol Calculated 84 mg/dL (0-129) HDL Cholesterol 91 mg/dL (40-60) Cholesterol/HDL Ratio 1.9 Thyroid Stimulating Hormone (TSH) 0.325 uIU/mL (0.358-3.74) Digoxin Level 0.4 ng/mL (0.9-2.0) Digoxin Last Dose Date Unknown Digoxin Last Dose Time Unknown Segmented Neutrophils % 74 % (35-66) Band Neutrophils % 12 % (0-9) Lymphocytes % 10 % (24-48) Atypical Lymphocytes % (Manual) 1 % (0-0) Monocytes % 3 % (0-10) Platelet Estimate Adequate (ADEQUATE) Large Platelets Occ Anisocytosis Slight Laboratory Tests Test 04/18/19 05:23 White Blood Count 9.3 x10^3/uL (4.0-11.0) Red Blood Count 5.00 x10^6/uL (3.50-5.40) Hemoglobin 16.2 g/dL (12.0-15.5) Hematocrit 48.6 % (36.0-47.0) Mean Corpuscular Volume 97 fL (79-100) Mean Corpuscular Hemoglobin 32 pg (25-35) Mean Corpuscular Hemoglobin Concent 33 g/dL (31-37) Red Cell Distribution Width 15.7 % (11.5-14.5) Platelet Count 190 x10^3/uL (140-400) Neutrophils (%) (Auto) 86 % (31-73) Lymphocytes (%) (Auto) 9 % (24-48) Monocytes (%) (Auto) 5 % (0-9) Eosinophils (%) (Auto) 0 % (0-3) Basophils (%) (Auto) 0 % (0-3) Neutrophils # (Auto) 7.9 x10^3uL (1.8-7.7) Lymphocytes # (Auto) 0.9 x10^3/uL (1.0-4.8) Monocytes # (Auto) 0.5 x10^3/uL (0.0-1.1) Eosinophils # (Auto) 0.0 x10^3/uL (0.0-0.7) Basophils # (Auto) 0.0 x10^3/uL (0.0-0.2) Segmented Neutrophils % 74 % (35-66) Band Neutrophils % 12 % (0-9) Lymphocytes % 10 % (24-48) Atypical Lymphocytes % (Manual) 1 % (0-0) Monocytes % 3 % (0-10) Platelet Estimate Adequate (ADEQUATE) Large Platelets Occ Anisocytosis Slight Sodium Level 136 mmol/L (136-145) Potassium Level 3.7 mmol/L (3.5-5.1) Chloride Level 95 mmol/L (98-107) Carbon Dioxide Level 30 mmol/L (21-32) Anion Gap 11 (6-14) Blood Urea Nitrogen 30 mg/dL (7-20) Creatinine 1.4 mg/dL (0.6-1.0) Estimated GFR (Cockcroft-Gault) 43.8 Glucose Level 202 mg/dL (70-99) Calcium Level 9.0 mg/dL (8.5-10.1) Medications Active Scripts Medications Dose Route/Sig Max Daily Dose Days Date Category Potassium Chloride 20 Meq Tablet.er 40 Meq PO DAILY 03/13/14 Reported Norvasc (Amlodipine Besylate) 10 Mg Tablet 10 Mg PO DAILY 03/13/14 Reported Lisinopril-Hctz 20-12.5 Mg Tab (Lisinopril/Hydrochlorothiazide) 1 Each Tablet 1 Each PO DAILY 03/13/14 Reported Lopressor Hct 50-25 Tablet (Metoprolol/Hydrochlorothiazide) 1 Each Tablet 50 Mg PO DAILY 03/13/14 Reported Digoxin 125 Mcg Tablet 125 Mcg PO DAILY 03/13/14 Reported Pravastatin Sodium 40 Mg Tablet 40 Mg PO DAILY 03/13/14 Reported Zantac (Ranitidine Hcl) 150 Mg Tablet 150 Mg PO DAILY 03/13/14 Reported Ventolin Hfa (Albuterol Sulfate) 18 Gm Hfa.aer.ad 17 Gm IH PRN DAILY PRN 03/13/14 Reported Impression . IMPRESSION: 1. Acute hypoxemic respiratory failure. 2. Acute exacerbation of chronic obstructive pulmonary disease. 3. Gqjjp-kx-iqqtxbo diastolic heart failure. 4. Paroxysmal atrial fibrillation. 5. Incidental finding of right upper lobe noncalcified nodule. 6. Coronary artery disease. 7. Hyperlipidemia. 8. Hyponatremia. 9. History of cerebrovascular accident. 10. Colon cancer. 11. Tobacco dependence. Plan . D?W DR MURCIA WILL PROCEED WITH [facility] PT INFORMED ON POSSIBLE PTX D/W DR TREVOR NINA ON HOLD SONI LUTZ MD Apr 18, 2019 09:02
--- NOTE | 2019-04-18 09:57 | PDOC ---
PROGRESS NOTES Subjective Subjective feels better. has a dry cough. lab reviewed. eliquis on hold for lung nodule bx. bp is high. blood sugar 202. Objective Objective Vital Signs Date Time Temp Pulse Resp B/P (MAP) Pulse Ox O2 Delivery O2 Flow Rate FiO2 04/18/19 08:30 75 152/105 04/18/19 08:00 Nasal Cannula 2.0 04/18/19 07:42 98.4 18 96 98.4 Intake and Output 04/18/19 07:00 Intake Total 800 ml Output Total 800 ml Balance 0 ml Intake Oral 800 ml Output Urine Total 800 ml Physical Exam Abdomen: Soft Heart: Normal S1, Normal S2 Extremities: No edema General: Alert HEENT: Atraumatic Lungs: Other (bilateral decreased breath sounds with mild wheezes) Neuro: Normal speech Psych/Mental Status: Mood NL Skin: No rashes Assessment Assessment Problems1. Acute exacerbation of chronic obstructive pulmonary disease. I do not see any evidence of congestive heart failure clinically. 2. Paroxysmal atrial fibrillation. She had an increased ventricular rate and atrial fibrillation in the Emergency Room and ventricular rate is controlled. 3. Right upper lobe lung nodule. 4. Accelerated hypertension. 5. Hypokalemia.resolved 6. Hyponatremia.resolved 7. Coronary artery disease noted on a CAT scan of the chest. acute bronchitis steroid induced hyperglycemia Medical Problems: (1) Acute pulmonary edema Status: Acute (2) COPD exacerbation Status: Acute (3) HTN (hypertension) Status: Acute Plan Plan of Care continue iv solumedrol and nebulizer rx and oxygen hold elquis for lung nodule biopsy consult IR for lung nodule bx start hydralazine and continue amlodipine and metoprolol and switch to losartan due to cough and continue hctz d/c lisinopril zithromax novolog insulin sliding scale check hgb a1c Comment Review of Relevant I have reviewed the following items steph (where applicable) has been applied. Labs Laboratory Tests Test 04/17/19 05:35 04/18/19 05:23 White Blood Count 8.4 x10^3/uL (4.0-11.0) 9.3 x10^3/uL (4.0-11.0) Red Blood Count 5.35 x10^6/uL (3.50-5.40) 5.00 x10^6/uL (3.50-5.40) Hemoglobin 17.4 g/dL (12.0-15.5) 16.2 g/dL (12.0-15.5) Hematocrit 50.7 % (36.0-47.0) 48.6 % (36.0-47.0) Mean Corpuscular Volume 95 fL (79-100) 97 fL (79-100) Mean Corpuscular Hemoglobin 33 pg (25-35) 32 pg (25-35) Mean Corpuscular Hemoglobin Concent 34 g/dL (31-37) 33 g/dL (31-37) Red Cell Distribution Width 14.9 % (11.5-14.5) 15.7 % (11.5-14.5) Platelet Count 193 x10^3/uL (140-400) 190 x10^3/uL (140-400) Neutrophils (%) (Auto) 77 % (31-73) 86 % (31-73) Lymphocytes (%) (Auto) 11 % (24-48) 9 % (24-48) Monocytes (%) (Auto) 11 % (0-9) 5 % (0-9) Eosinophils (%) (Auto) 0 % (0-3) 0 % (0-3) Basophils (%) (Auto) 1 % (0-3) 0 % (0-3) Neutrophils # (Auto) 6.5 x10^3uL (1.8-7.7) 7.9 x10^3uL (1.8-7.7) Lymphocytes # (Auto) 1.0 x10^3/uL (1.0-4.8) 0.9 x10^3/uL (1.0-4.8) Monocytes # (Auto) 0.9 x10^3/uL (0.0-1.1) 0.5 x10^3/uL (0.0-1.1) Eosinophils # (Auto) 0.0 x10^3/uL (0.0-0.7) 0.0 x10^3/uL (0.0-0.7) Basophils # (Auto) 0.0 x10^3/uL (0.0-0.2) 0.0 x10^3/uL (0.0-0.2) D-Dimer (Tierney) 0.31 ug/mlFEU (0.00-0.50) Sodium Level 130 mmol/L (136-145) 136 mmol/L (136-145) Potassium Level 3.4 mmol/L (3.5-5.1) 3.7 mmol/L (3.5-5.1) Chloride Level 91 mmol/L (98-107) 95 mmol/L (98-107) Carbon Dioxide Level 30 mmol/L (21-32) 30 mmol/L (21-32) Anion Gap 9 (6-14) 11 (6-14) Blood Urea Nitrogen 14 mg/dL (7-20) 30 mg/dL (7-20) Creatinine 1.0 mg/dL (0.6-1.0) 1.4 mg/dL (0.6-1.0) Estimated GFR (Cockcroft-Gault) 64.6 43.8 BUN/Creatinine Ratio 14 (6-20) Glucose Level 143 mg/dL (70-99) 202 mg/dL (70-99) Calcium Level 9.7 mg/dL (8.5-10.1) 9.0 mg/dL (8.5-10.1) Magnesium Level 1.9 mg/dL (1.8-2.4) Total Bilirubin 0.7 mg/dL (0.2-1.0) Aspartate Amino Transf (AST/SGOT) 46 U/L (15-37) Alanine Aminotransferase (ALT/SGPT) 30 U/L (14-59) Alkaline Phosphatase 142 U/L (46-116) Troponin I Quantitative 0.028 ng/mL (0.000-0.055) NW-Vlp-W-Type Natriuretic Peptide 3358 pg/mL (0-449) Total Protein 8.2 g/dL (6.4-8.2) Albumin 3.7 g/dL (3.4-5.0) Albumin/Globulin Ratio 0.8 (1.0-1.7) Triglycerides Level 75 mg/dL (0-150) Cholesterol Level 175 mg/dL (0-200) LDL Cholesterol, Calculated 69 mg/dL (0-100) VLDL Cholesterol, Calculated 15 mg/dL (0-40) Non-HDL Cholesterol Calculated 84 mg/dL (0-129) HDL Cholesterol 91 mg/dL (40-60) Cholesterol/HDL Ratio 1.9 Thyroid Stimulating Hormone (TSH) 0.325 uIU/mL (0.358-3.74) Digoxin Level 0.4 ng/mL (0.9-2.0) Digoxin Last Dose Date Unknown Digoxin Last Dose Time Unknown Segmented Neutrophils % 74 % (35-66) Band Neutrophils % 12 % (0-9) Lymphocytes % 10 % (24-48) Atypical Lymphocytes % (Manual) 1 % (0-0) Monocytes % 3 % (0-10) Platelet Estimate Adequate (ADEQUATE) Large Platelets Occ Anisocytosis Slight Laboratory Tests Test 04/18/19 05:23 White Blood Count 9.3 x10^3/uL (4.0-11.0) Red Blood Count 5.00 x10^6/uL (3.50-5.40) Hemoglobin 16.2 g/dL (12.0-15.5) Hematocrit 48.6 % (36.0-47.0) Mean Corpuscular Volume 97 fL (79-100) Mean Corpuscular Hemoglobin 32 pg (25-35) Mean Corpuscular Hemoglobin Concent 33 g/dL (31-37) Red Cell Distribution Width 15.7 % (11.5-14.5) Platelet Count 190 x10^3/uL (140-400) Neutrophils (%) (Auto) 86 % (31-73) Lymphocytes (%) (Auto) 9 % (24-48) Monocytes (%) (Auto) 5 % (0-9) Eosinophils (%) (Auto) 0 % (0-3) Basophils (%) (Auto) 0 % (0-3) Neutrophils # (Auto) 7.9 x10^3uL (1.8-7.7) Lymphocytes # (Auto) 0.9 x10^3/uL (1.0-4.8) Monocytes # (Auto) 0.5 x10^3/uL (0.0-1.1) Eosinophils # (Auto) 0.0 x10^3/uL (0.0-0.7) Basophils # (Auto) 0.0 x10^3/uL (0.0-0.2) Segmented Neutrophils % 74 % (35-66) Band Neutrophils % 12 % (0-9) Lymphocytes % 10 % (24-48) Atypical Lymphocytes % (Manual) 1 % (0-0) Monocytes % 3 % (0-10) Platelet Estimate Adequate (ADEQUATE) Large Platelets Occ Anisocytosis Slight Sodium Level 136 mmol/L (136-145) Potassium Level 3.7 mmol/L (3.5-5.1) Chloride Level 95 mmol/L (98-107) Carbon Dioxide Level 30 mmol/L (21-32) Anion Gap 11 (6-14) Blood Urea Nitrogen 30 mg/dL (7-20) Creatinine 1.4 mg/dL (0.6-1.0) Estimated GFR (Cockcroft-Gault) 43.8 Glucose Level 202 mg/dL (70-99) Calcium Level 9.0 mg/dL (8.5-10.1) Medications Current Medications Furosemide (Lasix) 40 mg 1X ONCE IVP Last administered on 04/17/19at 06:54; St art 04/17/19 at 07:00; Stop 04/17/19 at 07:01; Status DC Nitroglycerin (Nitro-Bid Oint) 1 inch 1X ONCE TP Last administered on 04/17/19at 06:59; Start 04/17/19 at 07:00; Stop 04/17/19 at 07:01; Status DC Nitroglycerin (Nitro-Bid Oint) 1 inch STK-MED ONCE .ROUTE ; Start 04/17/19 at 06:50; Stop 04/17/19 at 10:27; Status DC Metoprolol Tartrate (Lopressor Vial) 5 mg 1X ONCE IVP Last administered on 04/17/19at 07:14; Start 04/17/19 at 07:15; Stop 04/17/19 at 07:16; Status DC Iohexol (Omnipaque 350 Mg/ml) 75 ml 1X ONCE IV Last administered on 04/17/19at 07:30; Start 04/17/19 at 07:30; Stop 04/17/19 at 07:31; Status DC Info (CONTRAST GIVEN -- Rx MONITORING) 1 each PRN DAILY PRN MC SEE COMMENTS; Start 04/17/19 at 07:30; Stop 04/19/19 at 07:29 Ondansetron HCl (Zofran) 4 mg PRN Q8HRS PRN IV NAUSEA/VOMITING; Start 04/17/19 at 09:00; Stop 04/18/19 at 08:59; Status DC Albuterol/ Ipratropium (Duoneb) 3 ml RTQID NEB ; Start 04/17/19 at 12:00; Stop 04/17/19 at 12:00; Status DC Methylprednisolone Sodium Succinate (SOLU-Medrol 125MG VIAL) 125 mg 1X ONCE IV Last administered on 04/17/19at 09:12; Start 04/17/19 at 09:00; Stop 04/17/19 at 09:01; Status DC Albuterol/ Ipratropium (Duoneb) 3 ml 1X ONCE NEB Last administered on 04/17/19at 09:10; Start 04/17/19 at 09:00; Stop 04/17/19 at 09:01; Status DC Amlodipine Besylate (Norvasc) 10 mg 1X ONCE PO Last administered on 04/17/19at 10:00; Start 04/17/19 at 09:15; Stop 04/17/19 at 09:16; Status DC Metoprolol Tartrate (Lopressor Vial) 5 mg 1X ONCE IVP Last administered on 04/17/19at 09:13; Start 04/17/19 at 09:15; Stop 04/17/19 at 09:16; Status DC Enoxaparin Sodium (Lovenox 40mg Syringe) 30 mg Q24H SQ ; Start 04/17/19 at 11:00; Stop 04/17/19 at 11:00; Status DC Acetaminophen (Tylenol) 650 mg PRN Q6HRS PRN PO MILD PAIN / TEMP; Start 04/17/19 at 10:15 Amlodipine Besylate (Norvasc) 10 mg DAILY PO Last administered on 04/18/19at 08:30; Start 04/17/19 at 11:00 Aspirin (Children'S Aspirin) 81 mg DAILYWBKFT PO Last administered on 04/18/19at 08:28; Start 04/17/19 at 11:00 Digoxin (Lanoxin) 125 mcg DAILY PO Last administered on 04/18/19at 08:29; Start 04/17/19 at 11:00 Apixaban (Eliquis) 5 mg BID PO Last administered on 04/17/19at 11:35; Start 04/17/19 at 11:00; Stop 04/17/19 at 15:20; Status DC Lisinopril (Prinivil) 40 mg DAILY PO Last administered on 04/18/19at 08:30; Start 04/17/19 at 11:00 Hydrochlorothiazide (Hydrodiuril) 25 mg DAILY PO Last administered on 04/18/19 08:28; Start 04/17/19 at 11:00 Potassium Chloride (Klor-Con) 40 meq 1X ONCE PO Last administered on 04/17/19at 11:36; Start 04/17/19 at 10:15; Stop 04/17/19 at 10:50; Status DC Potassium Chloride (Klor-Con) 20 meq DAILYWBKFT PO Last administered on 04/18/19at 08:28; Start 04/18/19 at 08:00 Metoprolol Tartrate (Lopressor) 75 mg BID PO ; Start 04/17/19 at 11:00; Stop 04/17/19 at 11:00; Status DC Atorvastatin Calcium (Lipitor) 10 mg QHS PO Last administered on 04/17/19 21:08; Start 04/17/19 at 21:00 Famotidine (Pepcid) 20 mg QHS PO Last administered on 04/17/19at 21:08; Start 04/17/19 at 21:00 Methylprednisolone Sodium Succinate (SOLU-Medrol 40MG VIAL) 40 mg Q12HR IV ; Start 04/17/19 at 11:00; Status Cancel Nicotine (Nicoderm Cq 21mg) 1 patch DAILY TD ; Start 04/17/19 at 11:00 Hydralazine HCl (Apresoline Inj) 10 mg Q6HRS PRN IVP ELEVATED BP, SEE COMMENTS; Start 04/17/19 at 10:15 Multivitamins (Thera M Plus) 1 tab DAILY PO Last administered on 04/18/19at 08:30; Start 04/17/19 at 11:00 Ondansetron HCl (Zofran Odt) 4 mg PRN Q6HRS PRN PO NAUSEA/VOMITING; Start 04/17/19 at 10:15 Magnesium Hydroxide (Milk Of Magnesia) 2,400 mg PRN DAILY PRN PO CONSTIPATION; Start 04/17/19 at 10:15 Enoxaparin Sodium (Lovenox 30mg Syringe) 30 mg Q24H SQ Last administered on 04/17/19at 11:39; Start 04/17/19 at 11:00 Metoprolol Tartrate (Lopressor) 75 mg BID PO Last administered on 6/11/19at 08:29; Start 04/17/19 at 11:00 Methylprednisolone Sodium Succinate (SOLU-Medrol 40MG VIAL) 40 mg Q12HR IV Last administered on 04/18/19at 08:28; Start 04/17/19 at 21:00 Albuterol/ Ipratropium (Duoneb) 3 ml STK-MED ONCE .ROUTE ; Start 04/17/19 at 15 :52; Stop 04/17/19 at 15:53; Status DC Albuterol/ Ipratropium (Duoneb) 3 ml RTQID NEB Last administered on 04/18/19at 07:19; Start 04/17/19 at 16:00 Metoprolol Tartrate (Lopressor Vial) 5 mg Q6HRS PRN IVP HR > 130 Last administered on 04/17/19at 18:06; Start 04/17/19 at 18:00 Active Scripts Active Reported Potassium Chloride 20 Meq Tablet.er 40 Meq PO DAILY Norvasc (Amlodipine Besylate) 10 Mg Tablet 10 Mg PO DAILY Lisinopril-Hctz 20-12.5 Mg Tab (Lisinopril/Hydrochlorothiazide) 1 Each Tablet 1 Each PO DAILY Lopressor Hct 50-25 Tablet (Metoprolol/Hydrochlorothiazide) 1 Each Tablet 50 Mg PO DAILY Digoxin 125 Mcg Tablet 125 Mcg PO DAILY Pravastatin Sodium 40 Mg Tablet 40 Mg PO DAILY Zantac (Ranitidine Hcl) 150 Mg Tablet 150 Mg PO DAILY Ventolin Hfa (Albuterol Sulfate) 18 Gm Hfa.aer.ad 17 Gm IH PRN DAILY PRN Vitals/I & O Vital Sign - Last 24 Hours 04/17/19 04/17/19 04/17/19 04/17/19 09:58 10:00 10:52 11:00 Temp 98.5 98.5 Pulse 82 96 Resp 18 B/P (MAP) 193/118 (143) 193/118 168/109 (128) Pulse Ox 96 O2 Delivery Nasal Cannula Nasal Cannula O2 Flow Rate 2.0 2.0 04/17/19 04/17/19 04/17/19 04/17/19 11:35 11:39 12:58 15:00 Temp 98.5 98.5 Pulse 101 102 113 Resp 18 B/P (MAP) 209/104 153/99 (117) Pulse Ox 94 O2 Delivery Nasal Cannula Nasal Cannula O2 Flow Rate 2.0 2.0 04/17/19 04/17/19 04/17/19 04/17/19 15:00 16:05 18:06 19:27 Temp 98.2 98.2 Pulse 137 101 Resp 18 B/P (MAP) 153/99 132/89 (103) Pulse Ox 99 O2 Delivery Nasal Cannula Nasal Cannula Nasal Cannula O2 Flow Rate 2.0 2.0 2.0 04/17/19 04/17/19 04/17/19 04/18/19 20:00 21:09 22:26 03:50 Temp 98.6 98.0 98.6 98.0 Pulse 101 73 100 Resp 18 18 B/P (MAP) 132/89 148/101 (117) 141/90 (107) Pulse Ox 99 98 O2 Delivery Nasal Cannula Nasal Cannula Nasal Cannula O2 Flow Rate 2.0 2.0 2.0 04/18/19 04/18/19 04/18/19 04/18/19 07:19 07:42 08:00 08:29 Temp 98.4 98.4 Pulse 75 89 Resp 18 B/P (MAP) 152/105 (121) 152/105 Pulse Ox 92 96 O2 Delivery Room Air Nasal Cannula Nasal Cannula O2 Flow Rate 2.0 2.0 04/18/19 04/18/19 04/18/19 08:29 08:30 08:30 Pulse 75 75 75 B/P (MAP) 152/105 152/105 152/105 Intake and Output 04/17/19 04/17/19 04/18/19 15:00 23:00 07:00 Intake Total 200 ml 600 ml Output Total 400 ml 400 ml Balance -400 ml -200 ml 600 ml RIK MURRAY MD Apr 18, 2019 09:57
[2019-04-18] MEDS ORDERED: AZITHROMYCIN 250 MG TABLET. PO ONE (10:00)
[2019-04-18] MEDS: ENOXAPARIN 30 MG/0.3 ML SYRINGE. SQ SCH (10:45)
[2019-04-18 10:57] VITALS: BP 156/95
[2019-04-18] MEDS: INSULIN LISPRO 300 UNITS/3 ML INSULN.PEN. SQ SCH ×2 (12:00→17:00)
[2019-04-18 14:00] LABS: PROTHROMBIN TIME PATIENT 14.4 SEC (11.7-14.0)
--- NOTE | 2019-04-18 14:03 | NUR ---
SS following for discharge planning. SS reviewed pt's chart. Pt is from home and is currently requiring oxygen. No discharge needs noted at this time. SS will continue to follow for discharge planning.
[2019-04-18] MEDS: hydrALAZINE 25 MG TABLET PO SCH ×2 (14:27→20:51)
[2019-04-18 14:48] VITALS: BP 157/105
[2019-04-18 19:31] VITALS: BP 133/86
[2019-04-18] MEDS: ATORVASTATIN CALCIUM 10 MG TABLET. PO SCH (20:52)
[2019-04-18] MEDS: FAMOTIDINE 20 MG TABLET. PO SCH (20:52)
[2019-04-18 22:02] VITALS: BP 142/89
[2019-04-19 02:38] VITALS: BP 160/100
[2019-04-19 04:16] LABS: CALCIUM 8.9 mg/dL (8.5-10.1); CREATININE 1.3 mg/dL (0.6-1.0); GFR 47.7; POTASSIUM 4.1 mmol/L (3.5-5.1)
[2019-04-19 07:00] VITALS: BP 148/93
[2019-04-19] MEDS: INSULIN LISPRO 300 UNITS/3 ML INSULN.PEN. SQ SCH ×3 (08:00→17:00)
[2019-04-19] MEDS: IPRATRPIUM/ALBUTEROL 0.5/2.5MG 3 ML NEBU. NEB SCH ×4 (08:02→21:40)
[2019-04-19] MEDS: hydroCHLOROthiazide 25 MG TABLET PO SCH (08:28)
[2019-04-19] MEDS: ASPIRIN CHEWABLE 81 MG TABLET. PO SCH (08:29)
[2019-04-19] MEDS: MULTIVITAMIN with MINERAL TABLET. PO SCH (08:29)
[2019-04-19] MEDS: LISINOPRIL 20 MG TABLET PO SCH (08:30)
[2019-04-19] MEDS: amLODIPine BESYLATE 10 MG TABLET PO SCH (08:30)
[2019-04-19] MEDS: DIGOXIN 125 MCG TABLET. PO SCH (08:31)
[2019-04-19] MEDS: hydrALAZINE 25 MG TABLET PO SCH ×3 (08:31→21:16)
[2019-04-19] MEDS: AZITHROMYCIN 250 MG TABLET. PO SCH (08:31)
[2019-04-19] MEDS: METOPROLOL TART IMMED RELEASE 25 MG TABLET. PO SCH ×2 (08:32→21:15)
[2019-04-19] MEDS: methylPREDNISolone SOD SUCC PF 40 MG/ML VIAL. IV SCH ×2 (08:32→21:13)
[2019-04-19] MEDS: NICOTINE 21MG PATCH. TD SCH (08:33)
[2019-04-19] MEDS: POTASSIUM CHLORIDE 20 MEQ TABLET.ER. PO SCH (08:33)
--- NOTE | 2019-04-19 10:09 | PDOC ---
PULMONARY PROGRESS NOTES Subjective NO NEW COMPLAINTS PT LESS SOA LESS COUGH NO HEMOPTYSIS Vitals Vital Signs Date Time Temp Pulse Resp B/P (MAP) Pulse Ox O2 Delivery O2 Flow Rate FiO2 04/19/19 08:32 85 148/93 04/19/19 08:05 98 Room Air 04/19/19 08:00 2.0 04/19/19 07:00 98.6 16 98.6 ROS: No Nausea, No Chest Pain, No Abdominal Pain, No Increase Cough Lungs: Crackles Cardiovascular: S1 Abdomen: Soft, Non-tender Neuro Exam: Alert Extremities: No Edema Skin: Warm Labs Laboratory Tests Test 04/18/19 05:23 04/18/19 11:38 04/18/19 16:43 04/18/19 20:40 White Blood Count 9.3 x10^3/uL (4.0-11.0) Red Blood Count 5.00 x10^6/uL (3.50-5.40) Hemoglobin 16.2 g/dL (12.0-15.5) Hematocrit 48.6 % (36.0-47.0) Mean Corpuscular Volume 97 fL (79-100) Mean Corpuscular Hemoglobin 32 pg (25-35) Mean Corpuscular Hemoglobin Concent 33 g/dL (31-37) Red Cell Distribution Width 15.7 % (11.5-14.5) Platelet Count 190 x10^3/uL (140-400) Neutrophils (%) (Auto) 86 % (31-73) Lymphocytes (%) (Auto) 9 % (24-48) Monocytes (%) (Auto) 5 % (0-9) Eosinophils (%) (Auto) 0 % (0-3) Basophils (%) (Auto) 0 % (0-3) Neutrophils # (Auto) 7.9 x10^3uL (1.8-7.7) Lymphocytes # (Auto) 0.9 x10^3/uL (1.0-4.8) Monocytes # (Auto) 0.5 x10^3/uL (0.0-1.1) Eosinophils # (Auto) 0.0 x10^3/uL (0.0-0.7) Basophils # (Auto) 0.0 x10^3/uL (0.0-0.2) Segmented Neutrophils % 74 % (35-66) Band Neutrophils % 12 % (0-9) Lymphocytes % 10 % (24-48) Atypical Lymphocytes % (Manual) 1 % (0-0) Monocytes % 3 % (0-10) Platelet Estimate Adequate (ADEQUATE) Large Platelets Occ Anisocytosis Slight Prothrombin Time 14.4 SEC (11.7-14.0) Prothromb Time International Ratio 1.2 (0.8-1.1) Activated Partial Thromboplast Time 32 SEC (24-38) Sodium Level 136 mmol/L (136-145) Potassium Level 3.7 mmol/L (3.5-5.1) Chloride Level 95 mmol/L (98-107) Carbon Dioxide Level 30 mmol/L (21-32) Anion Gap 11 (6-14) Blood Urea Nitrogen 30 mg/dL (7-20) Creatinine 1.4 mg/dL (0.6-1.0) Estimated GFR (Cockcroft-Gault) 43.8 Glucose Level 202 mg/dL (70-99) Calcium Level 9.0 mg/dL (8.5-10.1) Glucose (Fingerstick) 81 mg/dL (70-99) 136 mg/dL (70-99) 130 mg/dL (70-99) Test 04/19/19 03:10 04/19/19 07:51 Sodium Level 135 mmol/L (136-145) Potassium Level 4.1 mmol/L (3.5-5.1) Chloride Level 97 mmol/L (98-107) Carbon Dioxide Level 31 mmol/L (21-32) Anion Gap 7 (6-14) Blood Urea Nitrogen 36 mg/dL (7-20) Creatinine 1.3 mg/dL (0.6-1.0) Estimated GFR (Cockcroft-Gault) 47.7 Glucose Level 152 mg/dL (70-99) Calcium Level 8.9 mg/dL (8.5-10.1) Glucose (Fingerstick) 114 mg/dL (70-99) Laboratory Tests Test 04/18/19 11:38 04/18/19 16:43 04/18/19 20:40 04/19/19 03:10 Glucose (Fingerstick) 81 mg/dL (70-99) 136 mg/dL (70-99) 130 mg/dL (70-99) Sodium Level 135 mmol/L (136-145) Potassium Level 4.1 mmol/L (3.5-5.1) Chloride Level 97 mmol/L (98-107) Carbon Dioxide Level 31 mmol/L (21-32) Anion Gap 7 (6-14) Blood Urea Nitrogen 36 mg/dL (7-20) Creatinine 1.3 mg/dL (0.6-1.0) Estimated GFR (Cockcroft-Gault) 47.7 Glucose Level 152 mg/dL (70-99) Calcium Level 8.9 mg/dL (8.5-10.1) Test 04/19/19 07:51 Glucose (Fingerstick) 114 mg/dL (70-99) Medications Active Scripts Medications Dose Route/Sig Max Daily Dose Days Date Category Potassium Chloride 20 Meq Tablet.er 40 Meq PO DAILY 03/13/14 Reported Norvasc (Amlodipine Besylate) 10 Mg Tablet 10 Mg PO DAILY 03/13/14 Reported Lisinopril-Hctz 20-12.5 Mg Tab (Lisinopril/Hydrochlorothiazide) 1 Each Tablet 1 Each PO DAILY 03/13/14 Reported Lopressor Hct 50-25 Tablet (Metoprolol/Hydrochlorothiazide) 1 Each Tablet 50 Mg PO DAILY 03/13/14 Reported Digoxin 125 Mcg Tablet 125 Mcg PO DAILY 03/13/14 Reported Pravastatin Sodium 40 Mg Tablet 40 Mg PO DAILY 03/13/14 Reported Zantac (Ranitidine Hcl) 150 Mg Tablet 150 Mg PO DAILY 03/13/14 Reported Ventolin Hfa (Albuterol Sulfate) 18 Gm Hfa.aer.ad 17 Gm IH PRN DAILY PRN 03/13/14 Reported Impression . IMPRESSION: 1. Acute hypoxemic respiratory failure. 2. Acute exacerbation of chronic obstructive pulmonary disease. 3. [id number] diastolic heart failure. 4. Paroxysmal atrial fibrillation. 5. Incidental finding of right upper lobe noncalcified nodule. 6. Coronary artery disease. 7. Hyperlipidemia. 8. Hyponatremia. 9. History of cerebrovascular accident. 10. Colon cancer. 11. Tobacco dependence. Plan . DW WITH IR FNA IN AM CONTINUE THE SAME PT INFORMED ON POSSIBLE PTX D/W DR TREVOR NINA ON HOLD SONI LUTZ MD Apr 19, 2019 10:09
--- NOTE | 2019-04-19 10:45 | PDOC ---
PROGRESS NOTES Subjective Subjective still wheezing. lab reviewed. bun higher 36. discussed lung BX Objective Objective Vital Signs Date Time Temp Pulse Resp B/P (MAP) Pulse Ox O2 Delivery O2 Flow Rate FiO2 04/19/19 08:32 85 148/93 04/19/19 08:05 98 Room Air 04/19/19 08:00 2.0 04/19/19 07:00 98.6 16 98.6 Intake and Output 04/19/19 07:00 Intake Total 1440 ml Output Total 1150 ml Balance 290 ml Intake Oral 1440 ml Output Urine Total 1150 ml # Voids 1 # Bowel Movements 3 Physical Exam Abdomen: Soft Heart: Regular rate, Normal S1, Normal S2 Extremities: No edema General: Alert HEENT: Atraumatic Lungs: Other (decreased breath sounds with wheezing) Neuro: Normal speech Psych/Mental Status: Mental status NL Skin: No rashes Assessment Assessment Problems1. Acute exacerbation of chronic obstructive pulmonary disease. I do not see any evidence of congestive heart failure clinically. 2. Paroxysmal atrial fibrillation. She had an increased ventricular rate and atrial fibrillation in the Emergency Room and ventricular rate is controlled. 3. Right upper lobe lung nodule. 4. Accelerated hypertension.resolved. bp mildly high 5. Hypokalemia.resolved 6. Hyponatremia.resolved 7. Coronary artery disease noted on a CAT scan of the chest. acute bronchitis steroid induced hyperglycemia pre-renal azotemia suspect due to dehydration Medical Problems: (1) Acute pulmonary edema Status: Acute (2) COPD exacerbation Status: Acute (3) HTN (hypertension) Status: Acute Plan Plan of Care continue iv solumedrol and oxygen and nebulizer rx continue zithromax FNA lung nodule per IR lab tomorrow start iv fluids eliquis on hold due to FNA lung bx Comment Review of Relevant I have reviewed the following items steph (where applicable) has been applied. Labs Laboratory Tests Test 04/18/19 05:23 04/18/19 11:38 04/18/19 16:43 04/18/19 20:40 White Blood Count 9.3 x10^3/uL (4.0-11.0) Red Blood Count 5.00 x10^6/uL (3.50-5.40) Hemoglobin 16.2 g/dL (12.0-15.5) Hematocrit 48.6 % (36.0-47.0) Mean Corpuscular Volume 97 fL (79-100) Mean Corpuscular Hemoglobin 32 pg (25-35) Mean Corpuscular Hemoglobin Concent 33 g/dL (31-37) Red Cell Distribution Width 15.7 % (11.5-14.5) Platelet Count 190 x10^3/uL (140-400) Neutrophils (%) (Auto) 86 % (31-73) Lymphocytes (%) (Auto) 9 % (24-48) Monocytes (%) (Auto) 5 % (0-9) Eosinophils (%) (Auto) 0 % (0-3) Basophils (%) (Auto) 0 % (0-3) Neutrophils # (Auto) 7.9 x10^3uL (1.8-7.7) Lymphocytes # (Auto) 0.9 x10^3/uL (1.0-4.8) Monocytes # (Auto) 0.5 x10^3/uL (0.0-1.1) Eosinophils # (Auto) 0.0 x10^3/uL (0.0-0.7) Basophils # (Auto) 0.0 x10^3/uL (0.0-0.2) Segmented Neutrophils % 74 % (35-66) Band Neutrophils % 12 % (0-9) Lymphocytes % 10 % (24-48) Atypical Lymphocytes % (Manual) 1 % (0-0) Monocytes % 3 % (0-10) Platelet Estimate Adequate (ADEQUATE) Large Platelets Occ Anisocytosis Slight Prothrombin Time 14.4 SEC (11.7-14.0) Prothromb Time International Ratio 1.2 (0.8-1.1) Activated Partial Thromboplast Time 32 SEC (24-38) Sodium Level 136 mmol/L (136-145) Potassium Level 3.7 mmol/L (3.5-5.1) Chloride Level 95 mmol/L (98-107) Carbon Dioxide Level 30 mmol/L (21-32) Anion Gap 11 (6-14) Blood Urea Nitrogen 30 mg/dL (7-20) Creatinine 1.4 mg/dL (0.6-1.0) Estimated GFR (Cockcroft-Gault) 43.8 Glucose Level 202 mg/dL (70-99) Calcium Level 9.0 mg/dL (8.5-10.1) Glucose (Fingerstick) 81 mg/dL (70-99) 136 mg/dL (70-99) 130 mg/dL (70-99) Test 04/19/19 03:10 04/19/19 07:51 Sodium Level 135 mmol/L (136-145) Potassium Level 4.1 mmol/L (3.5-5.1) Chloride Level 97 mmol/L (98-107) Carbon Dioxide Level 31 mmol/L (21-32) Anion Gap 7 (6-14) Blood Urea Nitrogen 36 mg/dL (7-20) Creatinine 1.3 mg/dL (0.6-1.0) Estimated GFR (Cockcroft-Gault) 47.7 Glucose Level 152 mg/dL (70-99) Calcium Level 8.9 mg/dL (8.5-10.1) Glucose (Fingerstick) 114 mg/dL (70-99) Laboratory Tests Test 04/18/19 11:38 04/18/19 16:43 04/18/19 20:40 04/19/19 03:10 Glucose (Fingerstick) 81 mg/dL (70-99) 136 mg/dL (70-99) 130 mg/dL (70-99) Sodium Level 135 mmol/L (136-145) Potassium Level 4.1 mmol/L (3.5-5.1) Chloride Level 97 mmol/L (98-107) Carbon Dioxide Level 31 mmol/L (21-32) Anion Gap 7 (6-14) Blood Urea Nitrogen 36 mg/dL (7-20) Creatinine 1.3 mg/dL (0.6-1.0) Estimated GFR (Cockcroft-Gault) 47.7 Glucose Level 152 mg/dL (70-99) Calcium Level 8.9 mg/dL (8.5-10.1) Test 04/19/19 07:51 Glucose (Fingerstick) 114 mg/dL (70-99) Medications Current Medications Furosemide (Lasix) 40 mg 1X ONCE IVP Last administered on 04/17/19at 06:54; Start 04/17/19 at 07:00; Stop 04/17/19 at 07:01; Status DC Nitroglycerin (Nitro-Bid Oint) 1 inch 1X ONCE TP Last administered on 04/17/19at 06:59; Start 04/17/19 at 07:00; Stop 04/17/19 at 07:01; Status DC Nitroglycerin (Nitro-Bid Oint) 1 inch STK-MED ONCE .ROUTE ; Start 04/17/19 at 06:50; Stop 04/17/19 at 10:27; Status DC Metoprolol Tartrate (Lopressor Vial) 5 mg 1X ONCE IVP Last administered on 04/17/19at 07:14; Start 04/17/19 at 07:15; Stop 04/17/19 at 07:16; Status DC Iohexol (Omnipaque 350 Mg/ml) 75 ml 1X ONCE IV Last administered on 04/17/19at 07:30; Start 04/17/19 at 07:30; Stop 04/17/19 at 07:31; Status DC Info (CONTRAST GIVEN -- Rx MONITORING) 1 each PRN DAILY PRN MC SEE COMMENTS; Start 04/17/19 at 07:30; Stop 04/19/19 at 07:29; Status DC Ondansetron HCl (Zofran) 4 mg PRN Q8HRS PRN IV NAUSEA/VOMITING; Start 04/17/19 at 09:00; Stop 04/18/19 at 08:59; Status DC Albuterol/ Ipratropium (Duoneb) 3 ml RTQID NEB ; Start 04/17/19 at 12:00; Stop 04/17/19 at 12:00; Status DC Methylprednisolone Sodium Succinate (SOLU-Medrol 125MG VIAL) 125 mg 1X ONCE IV Last administered on 04/17/19at 09:12; Start 04/17/19 at 09:00; Stop 04/17/19 at 09:01; Status DC Albuterol/ Ipratropium (Duoneb) 3 ml 1X ONCE NEB Last administered on 04/17/19at 09:10; Start 04/17/19 at 09:00; Stop 04/17/19 at 09:01; Status DC Amlodipine Besylate (Norvasc) 10 mg 1X ONCE PO Last administered on 04/17/19at 10:00; Start 04/17/19 at 09:15; Stop 04/17/19 at 09:16; Status DC Metoprolol Tartrate (Lopressor Vial) 5 mg 1X ONCE IVP Last administered on 04/17/19at 09:13; Start 04/17/19 at 09:15; Stop 04/17/19 at 09:16; Status DC Enoxaparin Sodium (Lovenox 40mg Syringe) 30 mg Q24H SQ ; Start 04/17/19 at 11:00; Stop 04/17/19 at 11:00; Status DC Acetaminophen (Tylenol) 650 mg PRN Q6HRS PRN PO MILD PAIN / TEMP; Start 04/17/19 at 10:15 Amlodipine Besylate (Norvasc) 10 mg DAILY PO Last administered on 04/19/19 08:30; Start 04/17/19 at 11:00 Aspirin (Children'S Aspirin) 81 mg DAILYWBKFT PO Last administered on 04/19/19 08:29; Start 04/17/19 at 11:00 Digoxin (Lanoxin) 125 mcg DAILY PO Last administered on 04/19/19 08:31; Start 04/17/19 at 11:00 Apixaban (Eliquis) 5 mg BID PO Last administered on 04/17/19 11:35; Start 04/17/19 at 11:00; Stop 04/17/19 at 15:20; Status DC Lisinopril (Prinivil) 40 mg DAILY PO Last administered on 04/19/19 08:30; Start 04/17/19 at 11:00 Hydrochlorothiazide (Hydrodiuril) 25 mg DAILY PO Last administered on 04/19/19 08:28; Start 04/17/19 at 11:00 Potassium Chloride (Klor-Con) 40 meq 1X ONCE PO Last administered on 04/17/19at 11:36; Start 04/17/19 at 10:15; Stop 04/17/19 at 10:50; Status DC Potassium Chloride (Klor-Con) 20 meq DAILYWBKFT PO Last administered on 9at 08:33; Start 04/18/19 at 08:00 Metoprolol Tartrate (Lopressor) 75 mg BID PO ; Start 04/17/19 at 11:00; Stop 04/17/19 at 11:00; Status DC Atorvastatin Calcium (Lipitor) 10 mg QHS PO Last administered on 04/18/19at 20:52; Start 04/17/19 at 21:00 Famotidine (Pepcid) 20 mg QHS PO Last administered on 04/18/19at 20:52; Start 04/17/19 at 21:00 Methylprednisolone Sodium Succinate (SOLU-Medrol 40MG VIAL) 40 mg Q12HR IV ; Start 04/17/19 at 11:00; Status Cancel Nicotine (Nicoderm Cq 21mg) 1 patch DAILY TD ; Start 04/17/19 at 11:00 Hydralazine HCl (Apresoline Inj) 10 mg Q6HRS PRN IVP ELEVATED BP, SEE COMMENTS; Start 04/17/19 at 10:15 Multivitamins (Thera M Plus) 1 tab DAILY PO Last administered on 04/19/19 08:29; Start 04/17/19 at 11:00 Ondansetron HCl (Zofran Odt) 4 mg PRN Q6HRS PRN PO NAUSEA/VOMITING; Start 04/17/19 at 10:15 Magnesium Hydroxide (Milk Of Magnesia) 2,400 mg PRN DAILY PRN PO CONSTIPATION; Start 04/17/19 at 10:15 Enoxaparin Sodium (Lovenox 30mg Syringe) 30 mg Q24H SQ Last administered on 04/18/19 10:45; Start 04/17/19 at 11:00 Metoprolol Tartrate (Lopressor) 75 mg BID PO Last administered on 04/19/19 08:32; Start 04/17/19 at 11:00 Methylprednisolone Sodium Succinate (SOLU-Medrol 40MG VIAL) 40 mg Q12HR IV Last administered on 04/19/19 08:32; Start 04/17/19 at 21:00 Albuterol/ Ipratropium (Duoneb) 3 ml STK-MED ONCE .ROUTE ; Start 04/17/19 at 15:52; Stop 04/17/19 at 15:53; Status DC Albuterol/ Ipratropium (Duoneb) 3 ml RTQID NEB Last administered on 04/19/19 08:02; Start 04/17/19 at 16:00 Metoprolol Tartrate (Lopressor Vial) 5 mg Q6HRS PRN IVP HR > 130 Last administered on 04/17/19 18:06; Start 04/17/19 at 18:00 Hydralazine HCl (Apresoline) 25 mg TID PO Last administered on 04/19/19 08:31; Start 04/18/19 at 14:00 Insulin Human Lispro (HumaLOG) 0-6 UNITS BG 300-39... TIDWMEALS SQ ; Start 04/18/19 at 12:00 Azithromycin (Zithromax) 500 mg 1X ONCE PO Last administered on 04/18/19at 10:45; Start 04/18/19 at 10:00; Stop 04/18/19 at 10:03; Status DC Azithromycin (Zithromax) 250 mg DAILY PO Last administered on 04/19/19at 08:31; Start 04/19/19 at 09:00 Active Scripts Active Reported Potassium Chloride 20 Meq Tablet.er 40 Meq PO DAILY Norvasc (Amlodipine Besylate) 10 Mg Tablet 10 Mg PO DAILY Lisinopril-Hctz 20-12.5 Mg Tab (Lisinopril/Hydrochlorothiazide) 1 Each Tablet 1 Each PO DAILY Lopressor Hct 50-25 Tablet (Metoprolol/Hydrochlorothiazide) 1 Each Tablet 50 Mg PO DAILY Digoxin 125 Mcg Tablet 125 Mcg PO DAILY Pravastatin Sodium 40 Mg Tablet 40 Mg PO DAILY Zantac (Ranitidine Hcl) 150 Mg Tablet 150 Mg PO DAILY Ventolin Hfa (Albuterol Sulfate) 18 Gm Hfa.aer.ad 17 Gm IH PRN DAILY PRN Vitals/I & O Vital Sign - Last 24 Hours 04/18/19 04/18/19 04/18/19 04/18/19 10:57 11:53 14:27 14:48 Temp 98.0 97.6 98.0 97.6 Pulse 83 72 95 Resp 18 18 B/P (MAP) 156/95 (115) 156/95 157/105 (122) Pulse Ox 95 93 97 O2 Delivery Nasal Cannula Room Air Nasal Cannula O2 Flow Rate 2.0 2.0 04/18/19 04/18/19 04/18/19 04/18/19 15:15 19:31 19:45 20:18 Temp 98.9 98.9 Pulse 77 Resp 18 B/P (MAP) 133/86 (102) Pulse Ox 94 97 94 O2 Delivery Room Air Nasal Cannula Nasal Cannula Room Air O2 Flow Rate 2.0 2.0 04/18/19 04/18/19 04/18/19 04/19/19 20:51 20:51 22:02 02:38 Temp 98.2 98.4 98.2 98.4 Pulse 77 77 84 73 Resp 16 18 B/P (MAP) 133/86 133/86 142/89 (106) 160/100 (120) Pulse Ox 100 96 O2 Delivery Nasal Cannula Nasal Cannula O2 Flow Rate 2.0 2.0 04/19/19 04/19/19 04/19/19 04/19/19 07:00 08:00 08:05 08:30 Temp 98.6 98.6 Pulse 66 66 Resp 16 B/P (MAP) 148/93 (111) 148/93 Pulse Ox 98 98 O2 Delivery Nasal Cannula Nasal Cannula Room Air O2 Flow Rate 2.0 2.0 04/19/19 04/19/19 04/19/19 04/19/19 08:30 08:31 08:31 08:32 Pulse 66 85 85 85 B/P (MAP) 148/93 148/93 148/93 148/93 Intake and Output 04/18/19 04/18/19 04/19/19 15:00 23:00 07:00 Intake Total 240 ml 800 ml 400 ml Output Total 250 ml 200 ml 700 ml Balance -10 ml 600 ml -300 ml RIK MURRAY MD Apr 19, 2019 10:45
[2019-04-19 10:48] VITALS: BP 147/79
[2019-04-19] MEDS: IV NORMAL SALINE 1000ML BAG 1,000 ML IV SCH (11:03)
[2019-04-19] MEDS: ENOXAPARIN 30 MG/0.3 ML SYRINGE. SQ SCH (11:05)
--- NOTE | 2019-04-19 12:40 | PDOC ---
JUAN RAMON ALANIZ FORTUNE TELLER 04/19/19 1240: CARDIO Progress Notes Date and Time Date of Service 04/19/2019 Time of Evaluation 0945 Subjective Subjective: No Chest Pain, No Palpitations, No Dizziness, Other (still has TOBIN) Vitals Vitals Vital Signs Date Time Temp Pulse Resp B/P (MAP) Pulse Ox O2 Delivery O2 Flow Rate FiO2 04/19/19 11:28 Room Air 04/19/19 10:48 97.6 77 16 147/79 (101) 95 2.0 97.6 Weight Weight [ ] Input and Output Intake and Output Intake and Output 04/19/19 07:00 Intake Total 1440 ml Output Total 1150 ml Balance 290 ml Intake Oral 1440 ml Output Urine Total 1150 ml # Voids 1 # Bowel Movements 3 Laboratory Labs Laboratory Tests Test 04/18/19 16:43 04/18/19 20:40 04/19/19 03:10 04/19/19 07:51 Glucose (Fingerstick) 136 mg/dL (70-99) 130 mg/dL (70-99) 114 mg/dL (70-99) Sodium Level 135 mmol/L (136-145) Potassium Level 4.1 mmol/L (3.5-5.1) Chloride Level 97 mmol/L (98-107) Carbon Dioxide Level 31 mmol/L (21-32) Anion Gap 7 (6-14) Blood Urea Nitrogen 36 mg/dL (7-20) Creatinine 1.3 mg/dL (0.6-1.0) Estimated GFR (Cockcroft-Gault) 47.7 Glucose Level 152 mg/dL (70-99) Calcium Level 8.9 mg/dL (8.5-10.1) Test 04/19/19 11:16 Glucose (Fingerstick) 178 mg/dL (70-99) Physical Exam HEENT: Neck Supple W Full Motion Chest: Symmetric LUNGS: Other (diminished bases, diffuse exp wheeze) Heart: irregularly irregular (AFIB) Abdomen: Soft N/T Extremities: No Calf Tenderness Neurology: alert, oriented, follow commands Assessment Assessment 1. Acute respiratory failure with COPD/CHF: compensated 2. AECOPD/RUL nodule: pulmonary following. FNA pending 3. Acute on chronic diastolic CHF: compensated. EF/WM nml 4. PAFIB; persistent AFIB, rate controlled 5. Suspect CKD3 6. CAD; noted on chest CTA. CP free 7. Hyperlipidemia; statin 8. Hyponatremia/Hypokalemia: much improved 9. H/o CVA 10. Tobaccoism; discussed/encouraged cessation 11. HTN; controlled Recommendations Continue lopressor. Restart eliquis post FNA. ASA If remains in AFIB with f/u will consider outpt cardioversion pending clinical course of pulmonary w/u Consider outpatient ischemic evaluation. follow up as an outpt. Secondary prevention. ALEX LOVING MD 04/19/19 1728: CARDIO Progress Notes Plan Plan Pt. seen and examined. Agree with above [employer] note. No acute cardiac issues. Continue supportive care with rate control and anticoagulation. Continue pulm w/u. thanks JUAN RAMON ALANIZ FORTUNE TELLER Apr 19, 2019 12:40 ALEX LOVING MD Apr 19, 2019 17:28
[2019-04-19 13:19] LABS: HEMOGLOBIN A1C 6.7 % (4.8-5.6)
[2019-04-19 14:30] VITALS: BP 144/87
[2019-04-19 19:25] VITALS: BP 152/96
[2019-04-19] MEDS: FAMOTIDINE 20 MG TABLET. PO SCH (21:00)
[2019-04-19] MEDS: ATORVASTATIN CALCIUM 10 MG TABLET. PO SCH (21:13)
[2019-04-19] MEDS: LACTOBACILLUS RHAMNOSUS GG 1 CAPSULE. PO SCH (21:15)
[2019-04-19 23:15] VITALS: BP 124/77
[2019-04-20] VITALS (20 sets, daily range): BP systolic 124–181; BP diastolic 76–110
[2019-04-20] MEDS: ASPIRIN CHEWABLE 81 MG TABLET. PO SCH (07:58)
[2019-04-20] MEDS: INSULIN LISPRO 300 UNITS/3 ML INSULN.PEN. SQ SCH ×3 (08:00→17:27)
[2019-04-20] MEDS: POTASSIUM CHLORIDE 20 MEQ TABLET.ER. PO SCH ×2 (08:00→15:50)
[2019-04-20] MEDS: IPRATRPIUM/ALBUTEROL 0.5/2.5MG 3 ML NEBU. NEB SCH ×4 (08:04→21:17)
[2019-04-20] MEDS: hydrALAZINE 25 MG TABLET PO SCH ×2 (09:00→15:49)
[2019-04-20] MEDS: MULTIVITAMIN with MINERAL TABLET. PO SCH (09:00)
[2019-04-20] MEDS: NICOTINE 21MG PATCH. TD SCH (09:00)
[2019-04-20] MEDS: LISINOPRIL 20 MG TABLET PO SCH (09:30)
[2019-04-20] MEDS: amLODIPine BESYLATE 10 MG TABLET PO SCH (09:31)
[2019-04-20] MEDS: DIGOXIN 125 MCG TABLET. PO SCH (09:31)
[2019-04-20] MEDS: methylPREDNISolone SOD SUCC PF 40 MG/ML VIAL. IV SCH (09:31)
[2019-04-20] MEDS: METOPROLOL TART IMMED RELEASE 25 MG TABLET. PO SCH (09:31)
[2019-04-20] MEDS ORDERED: LIDOCAINE WITH 8.4% SOD BICARB 3 ML DISP.SYRIN. ONE ×2 (10:07→13:41)
[2019-04-20] MEDS: ENOXAPARIN 30 MG/0.3 ML SYRINGE. SQ SCH (11:00)
--- NOTE | 2019-04-20 11:20 | PDOC ---
PROGRESS NOTES Subjective Subjective feels the same. hungry. waiting for lung bx today. Objective Objective Vital Signs Date Time Temp Pulse Resp B/P (MAP) Pulse Ox O2 Delivery O2 Flow Rate FiO2 04/20/19 09:31 82 153/80 04/20/19 08:07 94 Nasal Cannula 2.0 04/20/19 07:00 98.3 18 98.3 Intake and Output 04/20/19 07:00 Intake Total 800 ml Balance 800 ml Intake Oral 800 ml # Voids 1 Physical Exam Abdomen: Soft Heart: Normal S1, Normal S2 Extremities: No edema General: Alert HEENT: Atraumatic Lungs: Other (decreased breath sounds) Neuro: Normal speech Psych/Mental Status: Mental status NL Skin: No rashes Assessment Assessment Problems1. Acute exacerbation of chronic obstructive pulmonary disease. I do not see any evidence of congestive heart failure clinically. 2. Paroxysmal atrial fibrillation. She had an increased ventricular rate and atrial fibrillation in the Emergency Room and ventricular rate is controlled. 3. Right upper lobe lung nodule. 4. Accelerated hypertension.resolved. bp mildly high 5. Hypokalemia.resolved 6. Hyponatremia.resolved 7. Coronary artery disease noted on a CAT scan of the chest. acute bronchitis steroid induced hyperglycemia pre-renal azotemia suspect due to dehydration Medical Problems: (1) Acute pulmonary edema Status: Acute (2) COPD exacerbation Status: Acute (3) HTN (hypertension) Status: Acute Plan Plan of Care FNA lung bx today resume eliquis post procedure when okay with IR lab tomorrow continue oxygen and nebulizer rx and solumedrol Comment Review of Relevant I have reviewed the following items steph (where applicable) has been applied. Labs Laboratory Tests Test 04/18/19 11:38 04/18/19 16:43 04/18/19 20:40 04/19/19 03:10 Glucose (Fingerstick) 81 mg/dL (70-99) 136 mg/dL (70-99) 130 mg/dL (70-99) Sodium Level 135 mmol/L (136-145) Potassium Level 4.1 mmol/L (3.5-5.1) Chloride Level 97 mmol/L (98-107) Carbon Dioxide Level 31 mmol/L (21-32) Anion Gap 7 (6-14) Blood Urea Nitrogen 36 mg/dL (7-20) Creatinine 1.3 mg/dL (0.6-1.0) Estimated GFR (Cockcroft-Gault) 47.7 Glucose Level 152 mg/dL (70-99) Hemoglobin A1c 6.7 % (4.8-5.6) Calcium Level 8.9 mg/dL (8.5-10.1) Test 04/19/19 07:51 04/19/19 11:16 04/19/19 17:04 04/19/19 21:25 Glucose (Fingerstick) 114 mg/dL (70-99) 178 mg/dL (70-99) 155 mg/dL (70-99) 104 mg/dL (70-99) Test 04/20/19 07:33 Glucose (Fingerstick) 120 mg/dL (70-99) Laboratory Tests Test 04/19/19 17:04 04/19/19 21:25 04/20/19 07:33 Glucose (Fingerstick) 155 mg/dL (70-99) 104 mg/dL (70-99) 120 mg/dL (70-99) Medications Current Medications Furosemide (Lasix) 40 mg 1X ONCE IVP Last administered on 04/17/19at 06:54; S tart 04/17/19 at 07:00; Stop 04/17/19 at 07:01; Status DC Nitroglycerin (Nitro-Bid Oint) 1 inch 1X ONCE TP Last administered on 04/17/19at 06:59; Start 04/17/19 at 07:00; Stop 04/17/19 at 07:01; Status DC Nitroglycerin (Nitro-Bid Oint) 1 inch STK-MED ONCE .ROUTE ; Start 04/17/19 at 06:50; Stop 04/17/19 at 10:27; Status DC Metoprolol Tartrate (Lopressor Vial) 5 mg 1X ONCE IVP Last administered on 04/17/19at 07:14; Start 04/17/19 at 07:15; Stop 04/17/19 at 07:16; Status DC Iohexol (Omnipaque 350 Mg/ml) 75 ml 1X ONCE IV Last administered on 04/17/19at 07:30; Start 04/17/19 at 07:30; Stop 04/17/19 at 07:31; Status DC Info (CONTRAST GIVEN -- Rx MONITORING) 1 each PRN DAILY PRN MC SEE COMMENTS; Start 04/17/19 at 07:30; Stop 04/19/19 at 07:29; Status DC Ondansetron HCl (Zofran) 4 mg PRN Q8HRS PRN IV NAUSEA/VOMITING; Start 04/17/19 at 09:00; Stop 04/18/19 at 08:59; Status DC Albuterol/ Ipratropium (Duoneb) 3 ml RTQID NEB ; Start 04/17/19 at 12:00; Stop 04/17/19 at 12:00; Status DC Methylprednisolone Sodium Succinate (SOLU-Medrol 125MG VIAL) 125 mg 1X ONCE IV Last administered on 04/17/19at 09:12; Start 04/17/19 at 09:00; Stop 04/17/19 at 09:01; Status DC Albuterol/ Ipratropium (Duoneb) 3 ml 1X ONCE NEB Last administered on 04/17/19at 09:10; Start 04/17/19 at 09:00; Stop 04/17/19 at 09:01; Status DC Amlodipine Besylate (Norvasc) 10 mg 1X ONCE PO Last administered on 04/17/19at 10:00; Start 04/17/19 at 09:15; Stop 04/17/19 at 09:16; Status DC Metoprolol Tartrate (Lopressor Vial) 5 mg 1X ONCE IVP Last administered on 04/17/19at 09:13; Start 04/17/19 at 09:15; Stop 04/17/19 at 09:16; Status DC Enoxaparin Sodium (Lovenox 40mg Syringe) 30 mg Q24H SQ ; Start 04/17/19 at 11:00; Stop 04/17/19 at 11:00; Status DC Acetaminophen (Tylenol) 650 mg PRN Q6HRS PRN PO MILD PAIN / TEMP; Start 04/17/19 at 10:15 Amlodipine Besylate (Norvasc) 10 mg DAILY PO Last administered on 04/20/19at 09:31; Start 04/17/19 at 11:00 Aspirin (Children'S Aspirin) 81 mg DAILYWBKFT PO Last administered on 04/19/19at 08:29; Start 04/17/19 at 11:00 Digoxin (Lanoxin) 125 mcg DAILY PO Last administered on 04/20/19at 09:31; Start 04/17/19 at 11:00 Apixaban (Eliquis) 5 mg BID PO Last administered on 04/17/19at 11:35; Start 04/17/19 at 11:00; Stop 04/17/19 at 15:20; Status DC Lisinopril (Prinivil) 40 mg DAILY PO Last administered on 04/20/19at 09:30; Start 04/17/19 at 11:00 Hydrochlorothiazide (Hydrodiuril) 25 mg DAILY PO Last administered on 04/19/19at 08:28; Start 04/17/19 at 11:00 Potassium Chloride (Klor-Con) 40 meq 1X ONCE PO Last administered on 04/17/19at 11:36; Start 04/17/19 at 10:15; Stop 04/17/19 at 10:50; Status DC Potassium Chloride (Klor-Con) 20 meq DAILYWBKFT PO Last administered on 04/19/19at 08:33; Start 04/18/19 at 08:00 Metoprolol Tartrate (Lopressor) 75 mg BID PO ; Start 04/17/19 at 11:00; Stop 04/17/19 at 11:00; Status DC Atorvastatin Calcium (Lipitor) 10 mg QHS PO Last administered on 04/19/19at 21 :13; Start 04/17/19 at 21:00 Famotidine (Pepcid) 20 mg QHS PO Last administered on 04/19/19at 21:00; Start 04/17/19 at 21:00 Methylprednisolone Sodium Succinate (SOLU-Medrol 40MG VIAL) 40 mg Q12HR IV ; Start 04/17/19 at 11:00; Status Cancel Nicotine (Nicoderm Cq 21mg) 1 patch DAILY TD ; Start 04/17/19 at 11:00 Hydralazine HCl (Apresoline Inj) 10 mg Q6HRS PRN IVP ELEVATED BP, SEE COMMENTS; Start 04/17/19 at 10:15 Multivitamins (Thera M Plus) 1 tab DAILY PO Last administered on 04/19/19at 08:29; Start 04/17/19 at 11:00 Ondansetron HCl (Zofran Odt) 4 mg PRN Q6HRS PRN PO NAUSEA/VOMITING; Start 04/17/19 at 10:15 Magnesium Hydroxide (Milk Of Magnesia) 2,400 mg PRN DAILY PRN PO CONSTIPATION; Start 04/17/19 at 10:15 Enoxaparin Sodium (Lovenox 30mg Syringe) 30 mg Q24H SQ Last administered on 04/19/19at 11:05; Start 04/17/19 at 11:00 Metoprolol Tartrate (Lopressor) 75 mg BID PO Last administered on 04/20/19 09:31; Start 04/17/19 at 11:00 Methylprednisolone Sodium Succinate (SOLU-Medrol 40MG VIAL) 40 mg Q12HR IV Last administered on 04/20/19 09:31; Start 04/17/19 at 21:00 Albuterol/ Ipratropium (Duoneb) 3 ml STK-MED ONCE .ROUTE ; Start 04/17/19 at 15:52; Stop 04/17/19 at 15:53; Status DC Albuterol/ Ipratropium (Duoneb) 3 ml RTQID NEB Last administered on 04/20/19 08:04; Start 04/17/19 at 16:00 Metoprolol Tartrate (Lopressor Vial) 5 mg Q6HRS PRN IVP HR > 130 Last administered on 04/17/19at 18:06; Start 04/17/19 at 18:00 Hydralazine HCl (Apresoline) 25 mg TID PO Last administered on 04/19/19at 21:16; Start 04/18/19 at 14:00 Insulin Human Lispro (HumaLOG) 0-6 UNITS BG 300-39... TIDWMEALS SQ Last administered on 04/19/19at 12:22; Start 04/18/19 at 12:00 Azithromycin (Zithromax) 500 mg 1X ONCE PO Last administered on 04/18/19at 10:45; Start 04/18/19 at 10:00; Stop 04/18/19 at 10:03; Status DC Azithromycin (Zithromax) 250 mg DAILY PO Last administered on 04/19/19 08:31; Start 04/19/19 at 09:00 Sodium Chloride 1,000 ml @ 40 mls/hr Q24H IV Last administered on 04/19/19at 11:03; Start 04/19/19 at 10:45 Lactobacillus Rhamnosus (Culturelle) 1 cap BID PO Last administered on 04/19/19at 21:15; Start 04/19/19 at 21:00 Lidocaine/Sodium Bicarbonate (Buffered Lidocaine 1%) 3 ml STK-MED ONCE .ROUTE ; Start 04/20/19 at 10:07; Stop 04/20/19 at 10:08; Status DC Active Scripts Active Reported Potassium Chloride 20 Meq Tablet.er 40 Meq PO DAILY Norvasc (Amlodipine Besylate) 10 Mg Tablet 10 Mg PO DAILY Lisinopril-Hctz 20-12.5 Mg Tab (Lisinopril/Hydrochlorothiazide) 1 Each Tablet 1 Each PO DAILY Lopressor Hct 50-25 Tablet (Metoprolol/Hydrochlorothiazide) 1 Each Tablet 50 Mg PO DAILY Digoxin 125 Mcg Tablet 125 Mcg PO DAILY Pravastatin Sodium 40 Mg Tablet 40 Mg PO DAILY Zantac (Ranitidine Hcl) 150 Mg Tablet 150 Mg PO DAILY Ventolin Hfa (Albuterol Sulfate) 18 Gm Hfa.aer.ad 17 Gm IH PRN DAILY PRN Vitals/I & O Vital Sign - Last 24 Hours 04/19/19 04/19/19 04/19/19 04/19/19 11:28 14:30 15:04 15:24 Temp 98.0 98.0 Pulse 94 94 Resp 16 B/P (MAP) 144/87 (106) 144/87 Pulse Ox 96 O2 Delivery Room Air Nasal Cannula Nasal Cannula O2 Flow Rate 2.0 2.0 04/19/19 04/19/19 04/19/19 04/19/19 19:25 20:00 21:15 21:16 Temp 98.3 98.3 Pulse 92 89 89 Resp 19 B/P (MAP) 152/96 (114) 152/96 152/96 Pulse Ox 94 O2 Delivery Room Air Nasal Cannula O2 Flow Rate 2.0 04/19/19 04/19/19 04/20/19 04/20/19 21:41 23:15 04:01 07:00 Temp 98.1 98.3 98.1 98.3 Pulse 76 72 69 Resp 18 18 18 B/P (MAP) 124/77 (93) 144/93 (110) 153/80 (104) Pulse Ox 94 95 96 96 O2 Delivery Nasal Cannula Room Air Room Air Room Air O2 Flow Rate 2.0 04/20/19 04/20/19 04/20/19 04/20/19 07:40 08:07 09:30 09:31 Pulse 69 82 B/P (MAP) 153/80 153/80 Pulse Ox 94 O2 Delivery Nasal Cannula Nasal Cannula O2 Flow Rate 2.0 2.0 04/20/19 04/20/19 09:31 09:31 Pulse 82 82 B/P (MAP) 153/80 153/80 Intake and Output 04/19/19 04/19/19 04/20/19 15:00 23:00 07:00 Intake Total 300 ml 500 ml 0 ml Balance 300 ml 500 ml 0 ml RIK MURRAY MD Apr 20, 2019 11:20
--- NOTE | 2019-04-20 11:41 | NUR ---
SS following up with discharge planning. PT/OT recommending assisted unit. SS met with pt and discussed discharge planning and assisted unit. Pt declining to go to assisted unit at this time. Pt reported that she will discharge to home. Pt declined home healthcare as well stating that she does not meet criteria and stating that family checks in on her and takes care of her. Pt's RN notified.
[2019-04-20] MEDS: IV NORMAL SALINE 1000ML BAG 1,000 ML IV SCH (12:19)
[2019-04-20] MEDS ORDERED: MIDAZOLAM HCL/PF 2 MG/2 ML VIAL. ONE (13:53)
[2019-04-20] MEDS ORDERED: fentaNYL PF VIAL 100 MCG/2 ML VIAL ONE (13:54)
[2019-04-20] MEDS ORDERED: LIDOCAINE WITH 8.4% SOD BICARB 3 ML DISP.SYRIN. IJ ONE (14:45)
[2019-04-20] MEDS ORDERED: MIDAZOLAM HCL/PF 2 MG/2 ML VIAL. IV ONE (14:45)
[2019-04-20] MEDS ORDERED: fentaNYL PF VIAL 100 MCG/2 ML VIAL IV ONE (14:45)
[2019-04-20] MEDS ORDERED: fentaNYL PF VIAL 250 MCG/5 ML VIAL IV ONE (14:45)
--- NOTE | 2019-04-20 14:45 | PDOC ---
Provider Note Provider Note IR NOTE Attempted RUL nodule biopsy. Patient became confused with sedation, and was unable to hold still for biopsy. Will attempt again tomorrow, either without sedation, or with anesthesia. TK MURCIA MD Apr 20, 2019 14:45
[2019-04-20] MEDS: AZITHROMYCIN 250 MG TABLET. PO SCH (15:49)
[2019-04-20] MEDS: LACTOBACILLUS RHAMNOSUS GG 1 CAPSULE. PO SCH (15:49)
[2019-04-20] MEDS: hydroCHLOROthiazide 25 MG TABLET PO SCH (15:50)
--- NOTE | 2019-04-20 17:10 | PDOC ---
PULMONARY PROGRESS NOTES Subjective NO NEW COMPLAINTS PT LESS SOA LESS COUGH NO HEMOPTYSIS DID NOT TOLERATED FNA TODAY HAD PARADOXICAL RXN TO MED Vitals Vital Signs Date Time Temp Pulse Resp B/P (MAP) Pulse Ox O2 Delivery O2 Flow Rate FiO2 04/20/19 15:49 82 157/110 04/20/19 15:30 18 94 Nasal Cannula 2.0 04/20/19 11:00 97.7 97.7 ROS: No Nausea, No Chest Pain, No Abdominal Pain, No Increase Cough Lungs: Crackles Cardiovascular: S1 Abdomen: Soft, Non-tender Neuro Exam: Alert Extremities: No Edema Skin: Warm Labs Laboratory Tests Test 04/18/19 20:40 04/19/19 03:10 04/19/19 07:51 04/19/19 11:16 Glucose (Fingerstick) 130 mg/dL (70-99) 114 mg/dL (70-99) 178 mg/dL (70-99) Sodium Level 135 mmol/L (136-145) Potassium Level 4.1 mmol/L (3.5-5.1) Chloride Level 97 mmol/L (98-107) Carbon Dioxide Level 31 mmol/L (21-32) Anion Gap 7 (6-14) Blood Urea Nitrogen 36 mg/dL (7-20) Creatinine 1.3 mg/dL (0.6-1.0) Estimated GFR (Cockcroft-Gault) 47.7 Glucose Level 152 mg/dL (70-99) Hemoglobin A1c 6.7 % (4.8-5.6) Calcium Level 8.9 mg/dL (8.5-10.1) Test 04/19/19 17:04 04/19/19 21:25 04/20/19 07:33 04/20/19 11:48 Glucose (Fingerstick) 155 mg/dL (70-99) 104 mg/dL (70-99) 120 mg/dL (70-99) 110 mg/dL (70-99) Test 04/20/19 16:55 Glucose (Fingerstick) 272 mg/dL (70-99) Laboratory Tests Test 04/19/19 21:25 04/20/19 07:33 04/20/19 11:48 04/20/19 16:55 Glucose (Fingerstick) 104 mg/dL (70-99) 120 mg/dL (70-99) 110 mg/dL (70-99) 272 mg/dL (70-99) Medications Active Scripts Medications Dose Route/Sig Max Daily Dose Days Date Category Potassium Chloride 20 Meq Tablet.er 40 Meq PO DAILY 03/13/14 Reported Norvasc (Amlodipine Besylate) 10 Mg Tablet 10 Mg PO DAILY 03/13/14 Reported Lisinopril-Hctz 20-12.5 Mg Tab (Lisinopril/Hydrochlorothiazide) 1 Each Tablet 1 Each PO DAILY 03/13/14 Reported Lopressor Hct 50-25 Tablet (Metoprolol/Hydrochlorothiazide) 1 Each Tablet 50 Mg PO DAILY 03/13/14 Reported Digoxin 125 Mcg Tablet 125 Mcg PO DAILY 03/13/14 Reported Pravastatin Sodium 40 Mg Tablet 40 Mg PO DAILY 03/13/14 Reported Zantac (Ranitidine Hcl) 150 Mg Tablet 150 Mg PO DAILY 03/13/14 Reported Ventolin Hfa (Albuterol Sulfate) 18 Gm Hfa.aer.ad 17 Gm IH PRN DAILY PRN 03/13/14 Reported Impression . IMPRESSION: 1. Acute hypoxemic respiratory failure. 2. Acute exacerbation of chronic obstructive pulmonary disease. 3. Eovoo-do-vhrailp diastolic heart failure. 4. Paroxysmal atrial fibrillation. 5. Incidental finding of right upper lobe noncalcified nodule. 6. Coronary artery disease. 7. Hyperlipidemia. 8. Hyponatremia. 9. History of cerebrovascular accident. 10. Colon cancer. 11. Tobacco dependence. Plan . DW WITH IR FNA REATTEMPT IN AM CONTINUE THE SAME PT INFORMED ON POSSIBLE PTX D/W DR TREVOR NINA ON HOLD SONI LUTZ MD Apr 20, 2019 17:10
[2019-04-21] VITALS (13 sets, daily range): BP systolic 142–187; BP diastolic 72–114
[2019-04-21] MEDS: LACTOBACILLUS RHAMNOSUS GG 1 CAPSULE. PO SCH ×3 (00:46→21:00)
[2019-04-21] MEDS: hydrALAZINE 25 MG TABLET PO SCH ×4 (00:46→21:01)
[2019-04-21] MEDS: METOPROLOL TART IMMED RELEASE 25 MG TABLET. PO SCH ×3 (00:46→21:01)
[2019-04-21] MEDS: ATORVASTATIN CALCIUM 10 MG TABLET. PO SCH ×2 (00:47→21:00)
[2019-04-21] MEDS: FAMOTIDINE 20 MG TABLET. PO SCH ×2 (00:47→21:00)
[2019-04-21] MEDS: methylPREDNISolone SOD SUCC PF 40 MG/ML VIAL. IV SCH ×3 (00:50→21:06)
[2019-04-21 05:04] LABS: BASO % 0 % (0-3); EOS % 0 % (0-3); HEMATOCRIT 52.7 % (36.0-47.0); HEMOGLOBIN 17.2 g/dL (12.0-15.5); LYMPH # 0.4 x10^3/uL (1.0-4.8); LYMPH % 3 % (24-48); MEAN CORPUSCULAR HEMOGLOBIN 32 pg (25-35); MEAN CORPUSCULAR HGB CONC 33 g/dL (31-37); MEAN CORPUSCULAR VOLUME 98 fL (79-100); MONO # 0.5 x10^3/uL (0.0-1.1); MONO % 4 % (0-9); NEUT # 12.4 x10^3uL (1.8-7.7); NEUT % 93 % (31-73); PLATELET COUNT 224 x10^3/uL (140-400); RED BLOOD COUNT 5.36 x10^6/uL (3.50-5.40); WHITE BLOOD COUNT 13.3 x10^3/uL (4.0-11.0)
[2019-04-21 05:26] LABS: CALCIUM 8.7 mg/dL (8.5-10.1); CREATININE 1.2 mg/dL (0.6-1.0); GFR 52.3
[2019-04-21 05:31] LABS: POTASSIUM 4.9 mmol/L (3.5-5.1)
[2019-04-21] MEDS ORDERED: IV RINGERS,LACTATED 1000ML 1,000 ML IV SCH (07:00)
[2019-04-21] MEDS: IPRATRPIUM/ALBUTEROL 0.5/2.5MG 3 ML NEBU. NEB SCH ×4 (07:35→19:50)
[2019-04-21] MEDS: INSULIN LISPRO 300 UNITS/3 ML INSULN.PEN. SQ SCH ×3 (08:00→17:00)
[2019-04-21] MEDS: DIGOXIN 125 MCG TABLET. PO SCH (08:34)
[2019-04-21] MEDS: NICOTINE 21MG PATCH. TD SCH ×2 (08:34→09:00)
--- NOTE | 2019-04-21 10:15 | PDOC ---
PROGRESS NOTES Subjective Subjective FNA not done due to inability to cooperate during procedure and will be done today. feels well. lab reviewed. bun higher 40 and will increase iv fluids and d/c hctz. not SOA Objective Objective Vital Signs Date Time Temp Pulse Resp B/P (MAP) Pulse Ox O2 Delivery O2 Flow Rate FiO2 04/21/19 08:35 88 04/21/19 07:35 97 Nasal Cannula 2.0 04/21/19 07:25 98.4 18 142/90 (107) 98.4 Intake and Output 04/21/19 07:00 Intake Total 440 ml Output Total 625 ml Balance -185 ml Intake Oral 440 ml Output Urine Total 625 ml Physical Exam Abdomen: Soft Heart: Regular rate, Normal S1, Normal S2 Extremities: No edema General: Alert HEENT: Atraumatic Lungs: Other (mild bilateral wheezes with decreased breath sounds) Neuro: Normal speech Psych/Mental Status: Mental status NL Skin: No rashes Assessment Assessment Problems1. Acute exacerbation of chronic obstructive pulmonary disease. slow improvement I do not see any evidence of congestive heart failure clinically. 2. Paroxysmal atrial fibrillation. She had an increased ventricular rate and atrial fibrillation in the Emergency Room and ventricular rate is now controlled. 3. Right upper lobe lung nodule. 4. Accelerated hypertension.resolved. bp mildly high 5. Hypokalemia.resolved 6. Hyponatremia.resolved 7. Coronary artery disease noted on a CAT scan of the chest. acute bronchitis steroid induced hyperglycemia pre-renal azotemia suspect due to dehydration Medical Problems: (1) Acute pulmonary edema Status: Acute (2) COPD exacerbation Status: Acute (3) HTN (hypertension) Status: Acute Plan Plan of Care FNA lung bx today increase iv fluids d/c hctz continue iv solumedrol and oxygen and nebulizer rx Comment Review of Relevant I have reviewed the following items steph (where applicable) has been applied. Labs Laboratory Tests Test 04/19/19 11:16 04/19/19 17:04 04/19/19 21:25 04/20/19 07:33 Glucose (Fingerstick) 178 mg/dL (70-99) 155 mg/dL (70-99) 104 mg/dL (70-99) 120 mg/dL (70-99) Test 04/20/19 11:48 04/20/19 16:55 04/20/19 21:13 04/21/19 04:32 Glucose (Fingerstick) 110 mg/dL (70-99) 272 mg/dL (70-99) 182 mg/dL (70-99) White Blood Count 13.3 x10^3/uL (4.0-11.0) Red Blood Count 5.36 x10^6/uL (3.50-5.40) Hemoglobin 17.2 g/dL (12.0-15.5) Hematocrit 52.7 % (36.0-47.0) Mean Corpuscular Volume 98 fL (79-100) Mean Corpuscular Hemoglobin 32 pg (25-35) Mean Corpuscular Hemoglobin Concent 33 g/dL (31-37) Red Cell Distribution Width 16.0 % (11.5-14.5) Platelet Count 224 x10^3/uL (140-400) Neutrophils (%) (Auto) 93 % (31-73) Lymphocytes (%) (Auto) 3 % (24-48) Monocytes (%) (Auto) 4 % (0-9) Eosinophils (%) (Auto) 0 % (0-3) Basophils (%) (Auto) 0 % (0-3) Neutrophils # (Auto) 12.4 x10^3uL (1.8-7.7) Lymphocytes # (Auto) 0.4 x10^3/uL (1.0-4.8) Monocytes # (Auto) 0.5 x10^3/uL (0.0-1.1) Eosinophils # (Auto) 0.0 x10^3/uL (0.0-0.7) Basophils # (Auto) 0.0 x10^3/uL (0.0-0.2) Sodium Level 139 mmol/L (136-145) Potassium Level 4.9 mmol/L (3.5-5.1) Chloride Level 106 mmol/L (98-107) Carbon Dioxide Level 26 mmol/L (21-32) Anion Gap 7 (6-14) Blood Urea Nitrogen 40 mg/dL (7-20) Creatinine 1.2 mg/dL (0.6-1.0) Estimated GFR (Cockcroft-Gault) 52.3 Glucose Level 220 mg/dL (70-99) Calcium Level 8.7 mg/dL (8.5-10.1) Test 04/21/19 07:29 Glucose (Fingerstick) 131 mg/dL (70-99) Laboratory Tests Test 04/20/19 11:48 04/20/19 16:55 04/20/19 21:13 04/21/19 04:32 Glucose (Fingerstick) 110 mg/dL (70-99) 272 mg/dL (70-99) 182 mg/dL (70-99) White Blood Count 13.3 x10^3/uL (4.0-11.0) Red Blood Count 5.36 x10^6/uL (3.50-5.40) Hemoglobin 17.2 g/dL (12.0-15.5) Hematocrit 52.7 % (36.0-47.0) Mean Corpuscular Volume 98 fL (79-100) Mean Corpuscular Hemoglobin 32 pg (25-35) Mean Corpuscular Hemoglobin Concent 33 g/dL (31-37) Red Cell Distribution Width 16.0 % (11.5-14.5) Platelet Count 224 x10^3/uL (140-400) Neutrophils (%) (Auto) 93 % (31-73) Lymphocytes (%) (Auto) 3 % (24-48) Monocytes (%) (Auto) 4 % (0-9) Eosinophils (%) (Auto) 0 % (0-3) Basophils (%) (Auto) 0 % (0-3) Neutrophils # (Auto) 12.4 x10^3uL (1.8-7.7) Lymphocytes # (Auto) 0.4 x10^3/uL (1.0-4.8) Monocytes # (Auto) 0.5 x10^3/uL (0.0-1.1) Eosinophils # (Auto) 0.0 x10^3/uL (0.0-0.7) Basophils # (Auto) 0.0 x10^3/uL (0.0-0.2) Sodium Level 139 mmol/L (136-145) Potassium Level 4.9 mmol/L (3.5-5.1) Chloride Level 106 mmol/L (98-107) Carbon Dioxide Level 26 mmol/L (21-32) Anion Gap 7 (6-14) Blood Urea Nitrogen 40 mg/dL (7-20) Creatinine 1.2 mg/dL (0.6-1.0) Estimated GFR (Cockcroft-Gault) 52.3 Glucose Level 220 mg/dL (70-99) Calcium Level 8.7 mg/dL (8.5-10.1) Test 04/21/19 07:29 Glucose (Fingerstick) 131 mg/dL (70-99) Medications Current Medications Furosemide (Lasix) 40 mg 1X ONCE IVP Last administered on 04/17/19at 06:54; Start 04/17/19 at 07:00; Stop 04/17/19 at 07:01; Status DC Nitroglycerin (Nitro-Bid Oint) 1 inch 1X ONCE TP Last administered on 04/17/19at 06:59; Start 04/17/19 at 07:00; Stop 04/17/19 at 07:01; Status DC Nitroglycerin (Nitro-Bid Oint) 1 inch STK-MED ONCE .ROUTE ; Start 04/17/19 at 06:50; Stop 04/17/19 at 10:27; Status DC Metoprolol Tartrate (Lopressor Vial) 5 mg 1X ONCE IVP Last administered on 04/17/19at 07:14; Start 04/17/19 at 07:15; Stop 04/17/19 at 07:16; Status DC Iohexol (Omnipaque 350 Mg/ml) 75 ml 1X ONCE IV Last administered on 04/17/19at 07:30; Start 04/17/19 at 07:30; Stop 04/17/19 at 07:31; Status DC Info (CONTRAST GIVEN -- Rx MONITORING) 1 each PRN DAILY PRN MC SEE COMMENTS; Start 04/17/19 at 07:30; Stop 04/19/19 at 07:29; Status DC Ondansetron HCl (Zofran) 4 mg PRN Q8HRS PRN IV NAUSEA/VOMITING; Start 04/17/19 at 09:00; Stop 04/18/19 at 08:59; Status DC Albuterol/ Ipratropium (Duoneb) 3 ml RTQID NEB ; Start 04/17/19 at 12:00; Stop 04/17/19 at 12:00; Status DC Methylprednisolone Sodium Succinate (SOLU-Medrol 125MG VIAL) 125 mg 1X ONCE IV Last administered on 04/17/19at 09:12; Start 04/17/19 at 09:00; Stop 04/17/19 at 09:01; Status DC Albuterol/ Ipratropium (Duoneb) 3 ml 1X ONCE NEB Last administered on 04/17/19 09:10; Start 04/17/19 at 09:00; Stop 04/17/19 at 09:01; Status DC Amlodipine Besylate (Norvasc) 10 mg 1X ONCE PO Last administered on 04/17/19at 10:00; Start 04/17/19 at 09:15; Stop 04/17/19 at 09:16; Status DC Metoprolol Tartrate (Lopressor Vial) 5 mg 1X ONCE IVP Last administered on 04/17/19 09:13; Start 04/17/19 at 09:15; Stop 04/17/19 at 09:16; Status DC Enoxaparin Sodium (Lovenox 40mg Syringe) 30 mg Q24H SQ ; Start 04/17/19 at 11:00; Stop 04/17/19 at 11:00; Status DC Acetaminophen (Tylenol) 650 mg PRN Q6HRS PRN PO MILD PAIN / TEMP; Start 04/17/19 at 10:15 Amlodipine Besylate (Norvasc) 10 mg DAILY PO Last administered on 04/20/19 09:31; Start 04/17/19 at 11:00 Aspirin (Children'S Aspirin) 81 mg DAILYWBKFT PO Last administered on 04/19/19at 08:29; Start 04/17/19 at 11:00 Digoxin (Lanoxin) 125 mcg DAILY PO Last administered on 04/21/19 08:34; Start 04/17/19 at 11:00 Apixaban (Eliquis) 5 mg BID PO Last administered on 04/17/19at 11:35; Start 04/17/19 at 11:00; Stop 04/17/19 at 15:20; Status DC Lisinopril (Prinivil) 40 mg DAILY PO Last administered on 04/20/19 09:30; Start 04/17/19 at 11:00 Hydrochlorothiazide (Hydrodiuril) 25 mg DAILY PO Last administered on 04/20/19 15:50; Start 04/17/19 at 11:00 Potassium Chloride (Klor-Con) 40 meq 1X ONCE PO Last administered on 04/17/19 11:36; Start 04/17/19 at 10:15; Stop 04/17/19 at 10:50; Status DC Potassium Chloride (Klor-Con) 20 meq DAILYWBKFT PO Last administered on 04/20/19at 15:50; Start 04/18/19 at 08:00 Metoprolol Tartrate (Lopressor) 75 mg BID PO ; Start 04/17/19 at 11:00; Stop 04/17/19 at 11:00; Status DC Atorvastatin Calcium (Lipitor) 10 mg QHS PO Last administered on 04/21/19 00:47; Start 04/17/19 at 21:00 Famotidine (Pepcid) 20 mg QHS PO Last administered on 04/21/19 00:47; Start 04/17/19 at 21:00 Methylprednisolone Sodium Succinate (SOLU-Medrol 40MG VIAL) 40 mg Q12HR IV ; Start 04/17/19 at 11:00; Status Cancel Nicotine (Nicoderm Cq 21mg) 1 patch DAILY TD Last administered on 04/21/19 08:34; Start 04/17/19 at 11:00 Hydralazine HCl (Apresoline Inj) 10 mg Q6HRS PRN IVP ELEVATED BP, SEE COMMENTS; Start 04/17/19 at 10:15 Multivitamins (Thera M Plus) 1 tab DAILY PO Last administered on 04/19/19 08:29; Start 04/17/19 at 11:00 Ondansetron HCl (Zofran Odt) 4 mg PRN Q6HRS PRN PO NAUSEA/VOMITING; Start 04/17/19 at 10:15 Magnesium Hydroxide (Milk Of Magnesia) 2,400 mg PRN DAILY PRN PO CONSTIPATION; Start 04/17/19 at 10:15 Enoxaparin Sodium (Lovenox 30mg Syringe) 30 mg Q24H SQ Last administered on 04/19/19 11:05; Start 04/17/19 at 11:00 Metoprolol Tartrate (Lopressor) 75 mg BID PO Last administered on 04/21/19at 08:35; Start 04/17/19 at 11:00 Methylprednisolone Sodium Succinate (SOLU-Medrol 40MG VIAL) 40 mg Q12HR IV Last administered on 04/21/19at 00:50; Start 04/17/19 at 21:00 Albuterol/ Ipratropium (Duoneb) 3 ml STK-MED ONCE .ROUTE ; Start 04/17/19 at 15:52; Stop 04/17/19 at 15:53; Status DC Albuterol/ Ipratropium (Duoneb) 3 ml RTQID NEB Last administered on 04/21/19at 07:35; Start 04/17/19 at 16:00 Metoprolol Tartrate (Lopressor Vial) 5 mg Q6HRS PRN IVP HR > 130 Last administered on 04/17/19at 18:06; Start 04/17/19 at 18:00 Hydralazine HCl (Apresoline) 25 mg TID PO Last administered on 04/21/19at 00:46; Start 04/18/19 at 14:00 Insulin Human Lispro (HumaLOG) 0-6 UNITS BG 300-39... TIDWMEALS SQ Last administered on 04/20/19at 17:27; Start 04/18/19 at 12:00 Azithromycin (Zithromax) 500 mg 1X ONCE PO Last administered on 04/18/19at 10:45; Start 04/18/19 at 10:00; Stop 04/18/19 at 10:03; Status DC Azithromycin (Zithromax) 250 mg DAILY PO Last administered on 04/20/19at 15:49; Start 04/19/19 at 09:00 Sodium Chloride 1,000 ml @ 40 mls/hr Q24H IV Last administered on 04/20/19at 12:19; Start 04/19/19 at 10:45 Lactobacillus Rhamnosus (Culturelle) 1 cap BID PO Last administered on 04/21/19at 00:46; Start 04/19/19 at 21:00 Lidocaine/Sodium Bicarbonate (Buffered Lidocaine 1%) 3 ml STK-MED ONCE .ROUTE ; Start 04/20/19 at 10:07; Stop 04/20/19 at 10:08; Status DC Lidocaine/Sodium Bicarbonate (Buffered Lidocaine 1%) 3 ml STK-MED ONCE .ROUTE ; Start 04/20/19 at 13:41; Stop 04/20/19 at 13:42; Status DC Midazolam HCl (Versed) 2 mg STK-MED ONCE .ROUTE ; Start 04/20/19 at 13:53; Stop 04/20/19 at 13:54; Status DC Fentanyl Citrate (Fentanyl 2ml Vial) 100 mcg STK-MED ONCE .ROUTE ; Start 04/20/19 at 13:54; Stop 04/20/19 at 14:42; Status DC Lidocaine/Sodium Bicarbonate (Buffered Lidocaine 1%) 12 ml 1X ONCE IJ Last administered on 04/20/19at 14:42; Start 04/20/19 at 14:45; Stop 04/20/19 at 14:46; Status DC Fentanyl Citrate (Fentanyl 2ml Vial) 50 mcg 1X ONCE IV Last administered on 04/20/19at 14:43; Start 04/20/19 at 14:45; Stop 04/20/19 at 14:46; Status DC Fentanyl Citrate (Fentanyl 5ml Vial) 50 mcg 1X ONCE IV ; Start 04/20/19 at 14:45; Stop 04/20/19 at 14:45; Status DC Midazolam HCl (Versed) 2 mg 1X ONCE IV Last administered on 04/20/19at 14:44; Start 04/20/19 at 14:45; Stop 04/20/19 at 14:47; Status DC Ringer's Solution 1,000 ml @ 50 mls/hr Q20H IV ; Start 04/21/19 at 07:00; Stop 04/21/19 at 18:59 Active Scripts Active Reported Potassium Chloride 20 Meq Tablet.er 40 Meq PO DAILY Norvasc (Amlodipine Besylate) 10 Mg Tablet 10 Mg PO DAILY Lisinopril-Hctz 20-12.5 Mg Tab (Lisinopril/Hydrochlorothiazide) 1 Each Tablet 1 Each PO DAILY Lopressor Hct 50-25 Tablet (Metoprolol/Hydrochlorothiazide) 1 Each Tablet 50 Mg PO DAILY Digoxin 125 Mcg Tablet 125 Mcg PO DAILY Pravastatin Sodium 40 Mg Tablet 40 Mg PO DAILY Zantac (Ranitidine Hcl) 150 Mg Tablet 150 Mg PO DAILY Ventolin Hfa (Albuterol Sulfate) 18 Gm Hfa.aer.ad 17 Gm IH PRN DAILY PRN Vitals/I & O Vital Sign - Last 24 Hours 04/20/19 04/20/19 04/20/19 04/20/19 11:00 12:45 14:18 14:19 Temp 97.7 97.7 Pulse 68 76 76 Resp 18 18 18 B/P (MAP) 141/83 (102) Pulse Ox 94 97 99 99 O2 Delivery Room Air Nasal Cannula Nasal Cannula Nasal Cannula O2 Flow Rate 2.0 2.0 2.0 04/20/19 04/20/19 04/20/19 04/20/19 14:20 14:23 14:28 14:33 Pulse 76 77 71 66 Resp 18 16 14 16 Pulse Ox 99 98 99 98 O2 Delivery Nasal Cannula Nasal Cannula Nasal Cannula Nasal Cannula O2 Flow Rate 2.0 2.0 2.0 2.0 04/20/19 04/20/19 04/20/19 04/20/19 14:34 14:43 14:43 14:47 Pulse 93 74 Resp 16 16 16 B/P (MAP) 140/83 (102) Pulse Ox 99 96 O2 Delivery Nasal Cannula Nasal Cannula O2 Flow Rate 2.0 2.0 04/20/19 04/20/19 04/20/19 04/20/19 15:00 15:17 15:30 15:32 Pulse 74 80 86 Resp 18 18 B/P (MAP) 126/80 (95) 126/80 (95) 157/110 (126) Pulse Ox 94 97 94 94 O2 Delivery Room Air Nasal Cannula Nasal Cannula Nasal Cannula O2 Flow Rate 2.0 2.0 2.0 04/20/19 04/20/19 04/20/19 04/20/19 15:48 15:49 16:47 17:17 Pulse 75 82 77 84 B/P (MAP) 181/98 (125) 157/110 135/80 (98) 140/91 (107) Pulse Ox 90 94 94 O2 Delivery Nasal Cannula Nasal Cannula Nasal Cannula O2 Flow Rate 2.0 2.0 2.0 04/20/19 04/20/19 04/20/19 04/20/19 17:47 19:05 20:00 21:18 Temp 98.2 98.2 Pulse 75 91 Resp 19 B/P (MAP) 161/85 (110) 124/76 (92) Pulse Ox 93 94 94 O2 Delivery Nasal Cannula Nasal Cannula Nasal Cannula Nasal Cannula O2 Flow Rate 2.0 2.0 2.0 2.0 04/20/19 04/21/19 04/21/19 04/21/19 23:20 00:46 00:46 03:15 Temp 98.7 97.9 98.7 97.9 Pulse 83 83 83 85 Resp 18 18 B/P (MAP) 134/84 (101) 134/84 134/84 146/82 (103) Pulse Ox 95 92 O2 Delivery Nasal Cannula Nasal Cannula O2 Flow Rate 2.0 2.0 04/21/19 04/21/19 04/21/19 04/21/19 07:25 07:35 08:34 08:35 Temp 98.4 98.4 Pulse 65 88 88 Resp 18 B/P (MAP) 142/90 (107) Pulse Ox 98 97 O2 Delivery Nasal Cannula Nasal Cannula O2 Flow Rate 4.0 2.0 Intake and Output 04/20/19 04/20/19 04/21/19 15:00 23:00 07:00 Intake Total 0 ml 440 ml Output Total 250 ml 375 ml Balance -250 ml 65 ml RIK MURRAY MD Apr 21, 2019 10:15
[2019-04-21] MEDS ORDERED: LIDOCAINE WITH 8.4% SOD BICARB 3 ML DISP.SYRIN. ONE ×2 (10:24→10:25)
[2019-04-21] MEDS: IV NORMAL SALINE 1000ML BAG 1,000 ML IV SCH (10:45)
[2019-04-21] MEDS ORDERED: MIDAZOLAM HCL/PF 2 MG/2 ML VIAL. ONE (10:45)
[2019-04-21] MEDS ORDERED: KETAMINE HCL IN NACL, ISO-OSM 50 MG/5 ML SYRINGE ONE (10:45)
[2019-04-21] MEDS ORDERED: fentaNYL PF VIAL 100 MCG/2 ML VIAL ONE (10:45)
[2019-04-21] MEDS: ENOXAPARIN 30 MG/0.3 ML SYRINGE. SQ SCH (11:00)
[2019-04-21] MEDS ORDERED: LIDOCAINE WITH 8.4% SOD BICARB 3 ML DISP.SYRIN. IJ ONE (11:30)
--- NOTE | 2019-04-21 11:30 | NUR ---
Patient to IR for right lung nodule. Anesthesia at bedside for all sedation and monitoring throughout procedure. Sedation not used for procedure, vitals stable and no signs or symptoms of distress. Report called to RAINA Neal on .
[2019-04-21] MEDS: ASPIRIN CHEWABLE 81 MG TABLET. PO SCH (12:01)
[2019-04-21] MEDS: MULTIVITAMIN with MINERAL TABLET. PO SCH (12:01)
[2019-04-21] MEDS: AZITHROMYCIN 250 MG TABLET. PO SCH (12:02)
[2019-04-21] MEDS: amLODIPine BESYLATE 10 MG TABLET PO SCH (12:02)
[2019-04-21] MEDS: LISINOPRIL 20 MG TABLET PO SCH (12:02)
--- NOTE | 2019-04-21 12:36 | RAD ---
Portable chest, inspiration and expiration views, 04/21/2019, 11:44 PM: HISTORY: Post lung biopsy evaluation Comparison is made to a study from 04/17/2019. The heart is enlarged. There is tortuosity and calcific plaquing of the thoracic aorta. A pulmonary nodule is again noted laterally in the right upper lobe. There is now minimal adjacent infiltrate presumably on a postbiopsy basis. A very tiny pneumothorax is noted superolaterally on the right. There is no evidence of pleural fluid. There are mild scattered parenchymal scars. IMPRESSION: Very tiny right pneumothorax status post right lung biopsy. Electronically signed by: Praveen Gilmore MD (04/21/2019 12:33 PM) [facility]
--- NOTE | 2019-04-21 14:39 | PDOC ---
PULMONARY PROGRESS NOTES Subjective NO NEW COMPLAINTS HAD FNA TODAY PT LESS SOA LESS COUGH NO HEMOPTYSIS Vitals Vital Signs Date Time Temp Pulse Resp B/P (MAP) Pulse Ox O2 Delivery O2 Flow Rate FiO2 04/21/19 12:55 93 151/88 (109) 04/21/19 11:27 20 98 Nasal Cannula 5.0 04/21/19 11:14 97.6 97.6 ROS: No Nausea, No Chest Pain, No Abdominal Pain, No Increase Cough Lungs: Crackles Cardiovascular: S1 Abdomen: Soft, Non-tender Neuro Exam: Alert Extremities: No Edema Skin: Warm Labs Laboratory Tests Test 04/19/19 17:04 04/19/19 21:25 04/20/19 07:33 04/20/19 11:48 Glucose (Fingerstick) 155 mg/dL (70-99) 104 mg/dL (70-99) 120 mg/dL (70-99) 110 mg/dL (70-99) Test 04/20/19 16:55 04/20/19 21:13 04/21/19 04:32 04/21/19 07:29 Glucose (Fingerstick) 272 mg/dL (70-99) 182 mg/dL (70-99) 131 mg/dL (70-99) White Blood Count 13.3 x10^3/uL (4.0-11.0) Red Blood Count 5.36 x10^6/uL (3.50-5.40) Hemoglobin 17.2 g/dL (12.0-15.5) Hematocrit 52.7 % (36.0-47.0) Mean Corpuscular Volume 98 fL (79-100) Mean Corpuscular Hemoglobin 32 pg (25-35) Mean Corpuscular Hemoglobin Concent 33 g/dL (31-37) Red Cell Distribution Width 16.0 % (11.5-14.5) Platelet Count 224 x10^3/uL (140-400) Neutrophils (%) (Auto) 93 % (31-73) Lymphocytes (%) (Auto) 3 % (24-48) Monocytes (%) (Auto) 4 % (0-9) Eosinophils (%) (Auto) 0 % (0-3) Basophils (%) (Auto) 0 % (0-3) Neutrophils # (Auto) 12.4 x10^3uL (1.8-7.7) Lymphocytes # (Auto) 0.4 x10^3/uL (1.0-4.8) Monocytes # (Auto) 0.5 x10^3/uL (0.0-1.1) Eosinophils # (Auto) 0.0 x10^3/uL (0.0-0.7) Basophils # (Auto) 0.0 x10^3/uL (0.0-0.2) Sodium Level 139 mmol/L (136-145) Potassium Level 4.9 mmol/L (3.5-5.1) Chloride Level 106 mmol/L (98-107) Carbon Dioxide Level 26 mmol/L (21-32) Anion Gap 7 (6-14) Blood Urea Nitrogen 40 mg/dL (7-20) Creatinine 1.2 mg/dL (0.6-1.0) Estimated GFR (Cockcroft-Gault) 52.3 Glucose Level 220 mg/dL (70-99) Calcium Level 8.7 mg/dL (8.5-10.1) Laboratory Tests Test 04/20/19 16:55 04/20/19 21:13 04/21/19 04:32 04/21/19 07:29 Glucose (Fingerstick) 272 mg/dL (70-99) 182 mg/dL (70-99) 131 mg/dL (70-99) White Blood Count 13.3 x10^3/uL (4.0-11.0) Red Blood Count 5.36 x10^6/uL (3.50-5.40) Hemoglobin 17.2 g/dL (12.0-15.5) Hematocrit 52.7 % (36.0-47.0) Mean Corpuscular Volume 98 fL (79-100) Mean Corpuscular Hemoglobin 32 pg (25-35) Mean Corpuscular Hemoglobin Concent 33 g/dL (31-37) Red Cell Distribution Width 16.0 % (11.5-14.5) Platelet Count 224 x10^3/uL (140-400) Neutrophils (%) (Auto) 93 % (31-73) Lymphocytes (%) (Auto) 3 % (24-48) Monocytes (%) (Auto) 4 % (0-9) Eosinophils (%) (Auto) 0 % (0-3) Basophils (%) (Auto) 0 % (0-3) Neutrophils # (Auto) 12.4 x10^3uL (1.8-7.7) Lymphocytes # (Auto) 0.4 x10^3/uL (1.0-4.8) Monocytes # (Auto) 0.5 x10^3/uL (0.0-1.1) Eosinophils # (Auto) 0.0 x10^3/uL (0.0-0.7) Basophils # (Auto) 0.0 x10^3/uL (0.0-0.2) Sodium Level 139 mmol/L (136-145) Potassium Level 4.9 mmol/L (3.5-5.1) Chloride Level 106 mmol/L (98-107) Carbon Dioxide Level 26 mmol/L (21-32) Anion Gap 7 (6-14) Blood Urea Nitrogen 40 mg/dL (7-20) Creatinine 1.2 mg/dL (0.6-1.0) Estimated GFR (Cockcroft-Gault) 52.3 Glucose Level 220 mg/dL (70-99) Calcium Level 8.7 mg/dL (8.5-10.1) Medications Active Scripts Medications Dose Route/Sig Max Daily Dose Days Date Category Potassium Chloride 20 Meq Tablet.er 40 Meq PO DAILY 03/13/14 Reported Norvasc (Amlodipine Besylate) 10 Mg Tablet 10 Mg PO DAILY 03/13/14 Reported Lisinopril-Hctz 20-12.5 Mg Tab (Lisinopril/Hydrochlorothiazide) 1 Each Tablet 1 Each PO DAILY 03/13/14 Reported Lopressor Hct 50-25 Tablet (Metoprolol/Hydrochlorothiazide) 1 Each Tablet 50 Mg PO DAILY 03/13/14 Reported Digoxin 125 Mcg Tablet 125 Mcg PO DAILY 03/13/14 Reported Pravastatin Sodium 40 Mg Tablet 40 Mg PO DAILY 03/13/14 Reported Zantac (Ranitidine Hcl) 150 Mg Tablet 150 Mg PO DAILY 03/13/14 Reported Ventolin Hfa (Albuterol Sulfate) 18 Gm Hfa.aer.ad 17 Gm IH PRN DAILY PRN 03/13/14 Reported Impression . IMPRESSION: 1. Acute hypoxemic respiratory failure. 2. Acute exacerbation of chronic obstructive pulmonary disease. 3. Pahpg-[id number] diastolic heart failure. 4. Paroxysmal atrial fibrillation. 5. Incidental finding of right upper lobe noncalcified nodule. S/P FNA 04/21 6. Coronary artery disease. 7. Hyperlipidemia. 8. Hyponatremia. 9. History of cerebrovascular accident. 10. Colon cancer. 11. Tobacco dependence. Plan . OK TO D/C OVER WEEKEND FOLLOW UP WITH ME ON WEDNESDAY WILL REVIEW RESULTS AND MAKE RECOMMENDATION SONI ACOSTA MD Apr 21, 2019 14:39
--- NOTE | 2019-04-21 15:09 | RAD ---
PORTABLE CHEST 1V History: FNA of lung mass. COMPARISON: April 21, 2019 at 11:44 AM FINDINGS: There are several curvilinear densities at the right upper lung, probably skin folds as pulmonary markings appear to extend peripheral to these. No definite pneumothorax on this exam but recommend additional radiographic follow-up. Cardiomediastinal silhouette remains widened. Aorta is tortuous and ectatic, similar to the other study, with calcification. No new consolidating infiltrate is identified. IMPRESSION: No definite pneumothorax on today's exam. Several curvilinear densities are likely skin folds, but recommend additional short-term chest x-ray follow-up. Electronically signed by: Jose Lomeli MD (04/21/2019 3:06 PM) [id number]
[2019-04-21] MEDS: LORazepam 0.5 MG TABLET PO PRN ×2 (15:19→23:46)
[2019-04-21] MEDS: APIXABAN 5 MG TABLET. PO SCH (21:00)
[2019-04-22 03:00] VITALS: BP 161/95
[2019-04-22] MEDS: IV NORMAL SALINE 1000ML BAG 1,000 ML IV SCH (03:25)
[2019-04-22 04:44] LABS: BASO % 0 % (0-3); EOS % 0 % (0-3); LYMPH # 0.6 x10^3/uL (1.0-4.8); LYMPH % 5 % (24-48); MEAN CORPUSCULAR HEMOGLOBIN 32 pg (25-35); MEAN CORPUSCULAR HGB CONC 33 g/dL (31-37); MEAN CORPUSCULAR VOLUME 97 fL (79-100); MONO # 0.3 x10^3/uL (0.0-1.1); MONO % 3 % (0-9); NEUT # 11.5 x10^3uL (1.8-7.7); NEUT % 93 % (31-73); PLATELET COUNT 235 x10^3/uL (140-400); RED BLOOD COUNT 5.27 x10^6/uL (3.50-5.40); RED CELL DISTRIBUTION WIDTH 15.4 % (11.5-14.5); WHITE BLOOD COUNT 12.4 x10^3/uL (4.0-11.0)
[2019-04-22 05:30] LABS: CALCIUM 8.8 mg/dL (8.5-10.1); GFR 64.6; POTASSIUM 4.9 mmol/L (3.5-5.1)
--- NOTE | 2019-04-22 06:59 | PDOC ---
PULMONARY PROGRESS NOTES Subjective on 02, sob better, has cough, no pain, is hungry, not on home 02 HAD FNA 04/21 Vitals Vital Signs Date Time Temp Pulse Resp B/P (MAP) Pulse Ox O2 Delivery O2 Flow Rate FiO2 04/22/19 03:00 97.7 80 22 161/95 (117) 93 Nasal Cannula 4.0 97.7 ROS: No Nausea, No Chest Pain, No Abdominal Pain, No Increase Cough Lungs: Crackles Cardiovascular: S1, S2 Abdomen: Soft, Non-tender Neuro Exam: Alert Extremities: No Edema Skin: Warm Labs Laboratory Tests Test 04/20/19 07:33 04/20/19 11:48 04/20/19 16:55 04/20/19 21:13 Glucose (Fingerstick) 120 mg/dL (70-99) 110 mg/dL (70-99) 272 mg/dL (70-99) 182 mg/dL (70-99) Test 04/21/19 04:32 04/21/19 07:29 04/21/19 16:49 04/21/19 20:48 White Blood Count 13.3 x10^3/uL (4.0-11.0) Red Blood Count 5.36 x10^6/uL (3.50-5.40) Hemoglobin 17.2 g/dL (12.0-15.5) Hematocrit 52.7 % (36.0-47.0) Mean Corpuscular Volume 98 fL (79-100) Mean Corpuscular Hemoglobin 32 pg (25-35) Mean Corpuscular Hemoglobin Concent 33 g/dL (31-37) Red Cell Distribution Width 16.0 % (11.5-14.5) Platelet Count 224 x10^3/uL (140-400) Neutrophils (%) (Auto) 93 % (31-73) Lymphocytes (%) (Auto) 3 % (24-48) Monocytes (%) (Auto) 4 % (0-9) Eosinophils (%) (Auto) 0 % (0-3) Basophils (%) (Auto) 0 % (0-3) Neutrophils # (Auto) 12.4 x10^3uL (1.8-7.7) Lymphocytes # (Auto) 0.4 x10^3/uL (1.0-4.8) Monocytes # (Auto) 0.5 x10^3/uL (0.0-1.1) Eosinophils # (Auto) 0.0 x10^3/uL (0.0-0.7) Basophils # (Auto) 0.0 x10^3/uL (0.0-0.2) Sodium Level 139 mmol/L (136-145) Potassium Level 4.9 mmol/L (3.5-5.1) Chloride Level 106 mmol/L (98-107) Carbon Dioxide Level 26 mmol/L (21-32) Anion Gap 7 (6-14) Blood Urea Nitrogen 40 mg/dL (7-20) Creatinine 1.2 mg/dL (0.6-1.0) Estimated GFR (Cockcroft-Gault) 52.3 Glucose Level 220 mg/dL (70-99) Calcium Level 8.7 mg/dL (8.5-10.1) Glucose (Fingerstick) 131 mg/dL (70-99) 127 mg/dL (70-99) 153 mg/dL (70-99) Test 04/22/19 04:15 White Blood Count 12.4 x10^3/uL (4.0-11.0) Red Blood Count 5.27 x10^6/uL (3.50-5.40) Hemoglobin 17.0 g/dL (12.0-15.5) Hematocrit 51.0 % (36.0-47.0) Mean Corpuscular Volume 97 fL (79-100) Mean Corpuscular Hemoglobin 32 pg (25-35) Mean Corpuscular Hemoglobin Concent 33 g/dL (31-37) Red Cell Distribution Width 15.4 % (11.5-14.5) Platelet Count 235 x10^3/uL (140-400) Neutrophils (%) (Auto) 93 % (31-73) Lymphocytes (%) (Auto) 5 % (24-48) Monocytes (%) (Auto) 3 % (0-9) Eosinophils (%) (Auto) 0 % (0-3) Basophils (%) (Auto) 0 % (0-3) Neutrophils # (Auto) 11.5 x10^3uL (1.8-7.7) Lymphocytes # (Auto) 0.6 x10^3/uL (1.0-4.8) Monocytes # (Auto) 0.3 x10^3/uL (0.0-1.1) Eosinophils # (Auto) 0.0 x10^3/uL (0.0-0.7) Basophils # (Auto) 0.0 x10^3/uL (0.0-0.2) Sodium Level 139 mmol/L (136-145) Potassium Level 4.9 mmol/L (3.5-5.1) Chloride Level 103 mmol/L (98-107) Carbon Dioxide Level 29 mmol/L (21-32) Anion Gap 7 (6-14) Blood Urea Nitrogen 38 mg/dL (7-20) Creatinine 1.0 mg/dL (0.6-1.0) Estimated GFR (Cockcroft-Gault) 64.6 Glucose Level 157 mg/dL (70-99) Calcium Level 8.8 mg/dL (8.5-10.1) Laboratory Tests Test 04/21/19 07:29 04/21/19 16:49 04/21/19 20:48 04/22/19 04:15 Glucose (Fingerstick) 131 mg/dL (70-99) 127 mg/dL (70-99) 153 mg/dL (70-99) White Blood Count 12.4 x10^3/uL (4.0-11.0) Red Blood Count 5.27 x10^6/uL (3.50-5.40) Hemoglobin 17.0 g/dL (12.0-15.5) Hematocrit 51.0 % (36.0-47.0) Mean Corpuscular Volume 97 fL (79-100) Mean Corpuscular Hemoglobin 32 pg (25-35) Mean Corpuscular Hemoglobin Concent 33 g/dL (31-37) Red Cell Distribution Width 15.4 % (11.5-14.5) Platelet Count 235 x10^3/uL (140-400) Neutrophils (%) (Auto) 93 % (31-73) Lymphocytes (%) (Auto) 5 % (24-48) Monocytes (%) (Auto) 3 % (0-9) Eosinophils (%) (Auto) 0 % (0-3) Basophils (%) (Auto) 0 % (0-3) Neutrophils # (Auto) 11.5 x10^3uL (1.8-7.7) Lymphocytes # (Auto) 0.6 x10^3/uL (1.0-4.8) Monocytes # (Auto) 0.3 x10^3/uL (0.0-1.1) Eosinophils # (Auto) 0.0 x10^3/uL (0.0-0.7) Basophils # (Auto) 0.0 x10^3/uL (0.0-0.2) Sodium Level 139 mmol/L (136-145) Potassium Level 4.9 mmol/L (3.5-5.1) Chloride Level 103 mmol/L (98-107) Carbon Dioxide Level 29 mmol/L (21-32) Anion Gap 7 (6-14) Blood Urea Nitrogen 38 mg/dL (7-20) Creatinine 1.0 mg/dL (0.6-1.0) Estimated GFR (Cockcroft-Gault) 64.6 Glucose Level 157 mg/dL (70-99) Calcium Level 8.8 mg/dL (8.5-10.1) Medications Active Scripts Medications Dose Route/Sig Max Daily Dose Days Date Category Potassium Chloride 20 Meq Tablet.er 40 Meq PO DAILY 03/13/14 Reported Norvasc (Amlodipine Besylate) 10 Mg Tablet 10 Mg PO DAILY 03/13/14 Reported Lisinopril-Hctz 20-12.5 Mg Tab (Lisinopril/Hydrochlorothiazide) 1 Each Tablet 1 Each PO DAILY 03/13/14 Reported Lopressor Hct 50-25 Tablet (Metoprolol/Hydrochlorothiazide) 1 Each Tablet 50 Mg PO DAILY 03/13/14 Reported Digoxin 125 Mcg Tablet 125 Mcg PO DAILY 03/13/14 Reported Pravastatin Sodium 40 Mg Tablet 40 Mg PO DAILY 03/13/14 Reported Zantac (Ranitidine Hcl) 150 Mg Tablet 150 Mg PO DAILY 03/13/14 Reported Ventolin Hfa (Albuterol Sulfate) 18 Gm Hfa.aer.ad 17 Gm IH PRN DAILY PRN 03/13/14 Reported Impression . IMPRESSION: 1. Acute hypoxemic respiratory failure. 2. Acute exacerbation of chronic obstructive pulmonary disease. 3. [id number] diastolic heart failure. 4. Paroxysmal atrial fibrillation. 5. Incidental finding of right upper lobe noncalcified nodule. S/P FNA 04/21 6. Coronary artery disease. 7. Hyperlipidemia. 8. Hyponatremia. 9. History of cerebrovascular accident. 10. Colon cancer. 11. Tobacco dependence. Plan . change solumedrol to prednisone 40 mg daily w taper by 10 mg q 3d FOLLOW UP WITH dr rocha ON WEDNESDAY s/p ct guided bx cont michael NINA discussed w pt, SHANNEN Tripp MD Apr 22, 2019 06:59
[2019-04-22 07:00] VITALS: BP 158/99
[2019-04-22] MEDS: IPRATRPIUM/ALBUTEROL 0.5/2.5MG 3 ML NEBU. NEB SCH ×4 (07:11→19:55)
[2019-04-22] MEDS: INSULIN LISPRO 300 UNITS/3 ML INSULN.PEN. SQ SCH ×3 (08:00→17:00)
[2019-04-22] MEDS: NICOTINE 21MG PATCH. TD SCH (08:21)
[2019-04-22] MEDS: hydrALAZINE 25 MG TABLET PO SCH ×3 (08:21→21:22)
[2019-04-22] MEDS: APIXABAN 5 MG TABLET. PO SCH ×2 (08:21→21:21)
[2019-04-22] MEDS: AZITHROMYCIN 250 MG TABLET. PO SCH (08:21)
[2019-04-22] MEDS: amLODIPine BESYLATE 10 MG TABLET PO SCH (08:22)
[2019-04-22] MEDS: LACTOBACILLUS RHAMNOSUS GG 1 CAPSULE. PO SCH ×2 (08:22→21:21)
[2019-04-22] MEDS: LISINOPRIL 20 MG TABLET PO SCH (08:22)
[2019-04-22] MEDS: predniSONE 20 MG TABLET PO SCH (08:22)
[2019-04-22] MEDS: DIGOXIN 125 MCG TABLET. PO SCH (08:23)
[2019-04-22] MEDS: ASPIRIN CHEWABLE 81 MG TABLET. PO SCH (08:23)
[2019-04-22] MEDS: METOPROLOL TART IMMED RELEASE 25 MG TABLET. PO SCH (08:23)
[2019-04-22] MEDS: MULTIVITAMIN with MINERAL TABLET. PO SCH (08:23)
[2019-04-22] MEDS: LORazepam 0.5 MG TABLET PO PRN ×2 (08:24→16:32)
[2019-04-22] MEDS: ANTI-COAG MONITOR BY PHARMACY. MC PRN (09:58)
[2019-04-22 11:00] VITALS: BP 141/81
--- NOTE | 2019-04-22 12:34 | PDOC ---
PROGRESS NOTES Subjective Subjective feels better. switched to prednisone per pulmonary today. will need to check RA oxygen sat and 6 min walk today to see if she qualifies for home oxygen. Objective Objective Vital Signs Date Time Temp Pulse Resp B/P (MAP) Pulse Ox O2 Delivery O2 Flow Rate FiO2 04/22/19 11:20 Nasal Cannula 4.0 04/22/19 11:00 98.2 80 24 141/81 (101) 94 98.2 Intake and Output 04/22/19 07:00 Intake Total 420 ml Output Total 500 ml Balance -80 ml Intake Oral 420 ml Output Urine Total 500 ml Physical Exam Abdomen: Soft Heart: Regular rate, Normal S1, Normal S2 Extremities: No edema General: Alert HEENT: Atraumatic Lungs: Other (few rhonchi. decreased breath sounds) Neuro: Normal speech Psych/Mental Status: Mental status NL Skin: No rashes Assessment Assessment Problems1. Acute exacerbation of chronic obstructive pulmonary disease. improved 2. Paroxysmal atrial fibrillation. She had an increased ventricular rate and atrial fibrillation in the Emergency Room and ventricular rate is now controlled. 3. Right upper lobe lung nodule. FNA done 04/21 4. Accelerated hypertension.resolved. bp mildly high 5. Hypokalemia.resolved 6. Hyponatremia.resolved 7. Coronary artery disease noted on a CAT scan of the chest. acute bronchitis steroid induced hyperglycemia pre-renal azotemia suspect due to dehydration. better Medical Problems: (1) Acute pulmonary edema Status: Acute (2) COPD exacerbation Status: Acute (3) HTN (hypertension) Status: Acute Plan Plan of Care continue prednisone taper check for oxygen needs today dismiss today continue eliqiuis Comment Review of Relevant I have reviewed the following items steph (where applicable) has been applied. Labs Laboratory Tests Test 04/20/19 16:55 04/20/19 21:13 04/21/19 04:32 04/21/19 07:29 Glucose (Fingerstick) 272 mg/dL (70-99) 182 mg/dL (70-99) 131 mg/dL (70-99) White Blood Count 13.3 x10^3/uL (4.0-11.0) Red Blood Count 5.36 x10^6/uL (3.50-5.40) Hemoglobin 17.2 g/dL (12.0-15.5) Hematocrit 52.7 % (36.0-47.0) Mean Corpuscular Volume 98 fL (79-100) Mean Corpuscular Hemoglobin 32 pg (25-35) Mean Corpuscular Hemoglobin Concent 33 g/dL (31-37) Red Cell Distribution Width 16.0 % (11.5-14.5) Platelet Count 224 x10^3/uL (140-400) Neutrophils (%) (Auto) 93 % (31-73) Lymphocytes (%) (Auto) 3 % (24-48) Monocytes (%) (Auto) 4 % (0-9) Eosinophils (%) (Auto) 0 % (0-3) Basophils (%) (Auto) 0 % (0-3) Neutrophils # (Auto) 12.4 x10^3uL (1.8-7.7) Lymphocytes # (Auto) 0.4 x10^3/uL (1.0-4.8) Monocytes # (Auto) 0.5 x10^3/uL (0.0-1.1) Eosinophils # (Auto) 0.0 x10^3/uL (0.0-0.7) Basophils # (Auto) 0.0 x10^3/uL (0.0-0.2) Sodium Level 139 mmol/L (136-145) Potassium Level 4.9 mmol/L (3.5-5.1) Chloride Level 106 mmol/L (98-107) Carbon Dioxide Level 26 mmol/L (21-32) Anion Gap 7 (6-14) Blood Urea Nitrogen 40 mg/dL (7-20) Creatinine 1.2 mg/dL (0.6-1.0) Estimated GFR (Cockcroft-Gault) 52.3 Glucose Level 220 mg/dL (70-99) Calcium Level 8.7 mg/dL (8.5-10.1) Test 04/21/19 16:49 04/21/19 20:48 04/22/19 04:15 04/22/19 11:30 Glucose (Fingerstick) 127 mg/dL (70-99) 153 mg/dL (70-99) 115 mg/dL (70-99) White Blood Count 12.4 x10^3/uL (4.0-11.0) Red Blood Count 5.27 x10^6/uL (3.50-5.40) Hemoglobin 17.0 g/dL (12.0-15.5) Hematocrit 51.0 % (36.0-47.0) Mean Corpuscular Volume 97 fL (79-100) Mean Corpuscular Hemoglobin 32 pg (25-35) Mean Corpuscular Hemoglobin Concent 33 g/dL (31-37) Red Cell Distribution Width 15.4 % (11.5-14.5) Platelet Count 235 x10^3/uL (140-400) Neutrophils (%) (Auto) 93 % (31-73) Lymphocytes (%) (Auto) 5 % (24-48) Monocytes (%) (Auto) 3 % (0-9) Eosinophils (%) (Auto) 0 % (0-3) Basophils (%) (Auto) 0 % (0-3) Neutrophils # (Auto) 11.5 x10^3uL (1.8-7.7) Lymphocytes # (Auto) 0.6 x10^3/uL (1.0-4.8) Monocytes # (Auto) 0.3 x10^3/uL (0.0-1.1) Eosinophils # (Auto) 0.0 x10^3/uL (0.0-0.7) Basophils # (Auto) 0.0 x10^3/uL (0.0-0.2) Sodium Level 139 mmol/L (136-145) Potassium Level 4.9 mmol/L (3.5-5.1) Chloride Level 103 mmol/L (98-107) Carbon Dioxide Level 29 mmol/L (21-32) Anion Gap 7 (6-14) Blood Urea Nitrogen 38 mg/dL (7-20) Creatinine 1.0 mg/dL (0.6-1.0) Estimated GFR (Cockcroft-Gault) 64.6 Glucose Level 157 mg/dL (70-99) Calcium Level 8.8 mg/dL (8.5-10.1) Laboratory Tests Test 04/21/19 16:49 04/21/19 20:48 04/22/19 04:15 04/22/19 11:30 Glucose (Fingerstick) 127 mg/dL (70-99) 153 mg/dL (70-99) 115 mg/dL (70-99) White Blood Count 12.4 x10^3/uL (4.0-11.0) Red Blood Count 5.27 x10^6/uL (3.50-5.40) Hemoglobin 17.0 g/dL (12.0-15.5) Hematocrit 51.0 % (36.0-47.0) Mean Corpuscular Volume 97 fL (79-100) Mean Corpuscular Hemoglobin 32 pg (25-35) Mean Corpuscular Hemoglobin Concent 33 g/dL (31-37) Red Cell Distribution Width 15.4 % (11.5-14.5) Platelet Count 235 x10^3/uL (140-400) Neutrophils (%) (Auto) 93 % (31-73) Lymphocytes (%) (Auto) 5 % (24-48) Monocytes (%) (Auto) 3 % (0-9) Eosinophils (%) (Auto) 0 % (0-3) Basophils (%) (Auto) 0 % (0-3) Neutrophils # (Auto) 11.5 x10^3uL (1.8-7.7) Lymphocytes # (Auto) 0.6 x10^3/uL (1.0-4.8) Monocytes # (Auto) 0.3 x10^3/uL (0.0-1.1) Eosinophils # (Auto) 0.0 x10^3/uL (0.0-0.7) Basophils # (Auto) 0.0 x10^3/uL (0.0-0.2) Sodium Level 139 mmol/L (136-145) Potassium Level 4.9 mmol/L (3.5-5.1) Chloride Level 103 mmol/L (98-107) Carbon Dioxide Level 29 mmol/L (21-32) Anion Gap 7 (6-14) Blood Urea Nitrogen 38 mg/dL (7-20) Creatinine 1.0 mg/dL (0.6-1.0) Estimated GFR (Cockcroft-Gault) 64.6 Glucose Level 157 mg/dL (70-99) Calcium Level 8.8 mg/dL (8.5-10.1) Medications Current Medications Furosemide (Lasix) 40 mg 1X ONCE IVP Last administered on 04/17/19at 06:54; Start 04/17/19 at 07:00; Stop 04/17/19 at 07:01; Status DC Nitroglycerin (Nitro-Bid Oint) 1 inch 1X ONCE TP Last administered on 04/17/19at 06:59; Start 04/17/19 at 07:00; Stop 04/17/19 at 07:01; Status DC Nitroglycerin (Nitro-Bid Oint) 1 inch STK-MED ONCE .ROUTE ; Start 04/17/19 at 06:50; Stop 04/17/19 at 10:27; Status DC Metoprolol Tartrate (Lopressor Vial) 5 mg 1X ONCE IVP Last administered on 04/17/19at 07:14; Start 04/17/19 at 07:15; Stop 04/17/19 at 07:16; Status DC Iohexol (Omnipaque 350 Mg/ml) 75 ml 1X ONCE IV Last administered on 04/17/19at 07:30; Start 04/17/19 at 07:30; Stop 04/17/19 at 07:31; Status DC Info (CONTRAST GIVEN -- Rx MONITORING) 1 each PRN DAILY PRN MC SEE COMMENTS; Start 04/17/19 at 07:30; Stop 04/19/19 at 07:29; Status DC Ondansetron HCl (Zofran) 4 mg PRN Q8HRS PRN IV NAUSEA/VOMITING; Start 04/17/19 at 09:00; Stop 04/18/19 at 08:59; Status DC Albuterol/ Ipratropium (Duoneb) 3 ml RTQID NEB ; Start 04/17/19 at 12:00; Stop 04/17/19 at 12:00; Status DC Methylprednisolone Sodium Succinate (SOLU-Medrol 125MG VIAL) 125 mg 1X ONCE IV Last administered on 04/17/19at 09:12; Start 04/17/19 at 09:00; Stop 04/17/19 at 09:01; Status DC Albuterol/ Ipratropium (Duoneb) 3 ml 1X ONCE NEB Last administered on 04/17/19at 09:10; Start 04/17/19 at 09:00; Stop 04/17/19 at 09:01; Status DC Amlodipine Besylate (Norvasc) 10 mg 1X ONCE PO Last administered on 04/17/19at 10:00; Start 04/17/19 at 09:15; Stop 04/17/19 at 09:16; Status DC Metoprolol Tartrate (Lopressor Vial) 5 mg 1X ONCE IVP Last administered on 04/17/19at 09:13; Start 04/17/19 at 09:15; Stop 04/17/19 at 09:16; Status DC Enoxaparin Sodium (Lovenox 40mg Syringe) 30 mg Q24H SQ ; Start 04/17/19 at 11:00; Stop 04/17/19 at 11:00; Status DC Acetaminophen (Tylenol) 650 mg PRN Q6HRS PRN PO MILD PAIN / TEMP; Start 04/17/19 at 10:15 Amlodipine Besylate (Norvasc) 10 mg DAILY PO Last administered on 04/22/19at 08:22; Start 04/17/19 at 11:00 Aspirin (Children'S Aspirin) 81 mg DAILYWBKFT PO Last administered on 04/22/19at 08:23; Start 04/17/19 at 11:00 Digoxin (Lanoxin) 125 mcg DAILY PO Last administered on 04/22/19 08:23; Start 04/17/19 at 11:00 Apixaban (Eliquis) 5 mg BID PO Last administered on 04/17/19at 11:35; Start 04/17/19 at 11:00; Stop 04/17/19 at 15:20; Status DC Lisinopril (Prinivil) 40 mg DAILY PO Last administered on 04/22/19at 08:22; Start 04/17/19 at 11:00 Hydrochlorothiazide (Hydrodiuril) 25 mg DAILY PO Last administered on 04/20/19at 15:50; Start 04/17/19 at 11:00; Stop 04/21/19 at 10:12; Status DC Potassium Chloride (Klor-Con) 40 meq 1X ONCE PO Last administered on 04/17/19at 11:36; Start 04/17/19 at 10:15; Stop 04/17/19 at 10:50; Status DC Potassium Chloride (Klor-Con) 20 meq DAILYWBKFT PO Last administered on 04/20/19at 15:50; Start 04/18/19 at 08:00; Stop 04/21/19 at 10:12; Status DC Metoprolol Tartrate (Lopressor) 75 mg BID PO ; Start 04/17/19 at 11:00; Stop 04/17/19 at 11:00; Status DC Atorvastatin Calcium (Lipitor) 10 mg QHS PO Last administered on 04/21/19at 21:00; Start 04/17/19 at 21:00 Famotidine (Pepcid) 20 mg QHS PO Last administered on 04/21/19at 21:00; Start 04/17/19 at 21:00 Methylprednisolone Sodium Succinate (SOLU-Medrol 40MG VIAL) 40 mg Q12HR IV ; Start 04/17/19 at 11:00; Status Cancel Nicotine (Nicoderm Cq 21mg) 1 patch DAILY TD Last administered on 04/22/19at 08:21; Start 04/17/19 at 11:00 Hydralazine HCl (Apresoline Inj) 10 mg Q6HRS PRN IVP ELEVATED BP, SEE COMMENTS; Start 04/17/19 at 10:15 Multivitamins (Thera M Plus) 1 tab DAILY PO Last administered on 04/22/19at 08:23; Start 04/17/19 at 11:00 Ondansetron HCl (Zofran Odt) 4 mg PRN Q6HRS PRN PO NAUSEA/VOMITING; Start 04/17/19 at 10:15 Magnesium Hydroxide (Milk Of Magnesia) 2,400 mg PRN DAILY PRN PO CONSTIPATION; Start 04/17/19 at 10:15 Enoxaparin Sodium (Lovenox 30mg Syringe) 30 mg Q24H SQ Last administered on 04/19/19at 11:05; Start 04/17/19 at 11:00; Stop 04/22/19 at 07:02; Status DC Metoprolol Tartrate (Lopressor) 75 mg BID PO Last administered on 04/22/19at 08:23; Start 04/17/19 at 11:00 Methylprednisolone Sodium Succinate (SOLU-Medrol 40MG VIAL) 40 mg Q12HR IV Last administered on 04/21/19at 21:06; Start 04/17/19 at 21:00; Stop 04/22/19 at 07:02; Status DC Albuterol/ Ipratropium (Duoneb) 3 ml STK-MED ONCE .ROUTE ; Start 04/17/19 at 15:52; Stop 04/17/19 at 15:53; Status DC Albuterol/ Ipratropium (Duoneb) 3 ml RTQID NEB Last administered on 04/22/19at 11:20; Start 04/17/19 at 16:00 Metoprolol Tartrate (Lopressor Vial) 5 mg Q6HRS PRN IVP HR > 130 Last administered on 04/17/19at 18:06; Start 04/17/19 at 18:00 Hydralazine HCl (Apresoline) 25 mg TID PO Last administered on 04/22/19 08:21; Start 04/18/19 at 14:00 Insulin Human Lispro (HumaLOG) 0-6 UNITS BG 300-39... TIDWMEALS SQ Last administered on 04/20/19 17:27; Start 04/18/19 at 12:00 Azithromycin (Zithromax) 500 mg 1X ONCE PO Last administered on 04/18/19at 10:45; Start 04/18/19 at 10:00; Stop 04/18/19 at 10:03; Status DC Azithromycin (Zithromax) 250 mg DAILY PO Last administered on 04/22/19 08:21; Start 04/19/19 at 09:00 Sodium Chloride 1,000 ml @ 60 mls/hr [id number] IV Last administered on 04/20/19at 12:19; Start 04/19/19 at 10:45 Lactobacillus Rhamnosus (Culturelle) 1 cap BID PO Last administered on 04/22/19 08:22; Start 04/19/19 at 21:00 Lidocaine/Sodium Bicarbonate (Buffered Lidocaine 1%) 3 ml STK-MED ONCE .ROUTE ; Start 04/20/19 at 10:07; Stop 04/20/19 at 10:08; Status DC Lidocaine/Sodium Bicarbonate (Buffered Lidocaine 1%) 3 ml STK-MED ONCE .ROUTE ; Start 04/20/19 at 13:41; Stop 04/20/19 at 13:42; Status DC Midazolam HCl (Versed) 2 mg STK-MED ONCE .ROUTE ; Start 04/20/19 at 13:53; Stop 04/20/19 at 13:54; Status DC Fentanyl Citrate (Fentanyl 2ml Vial) 100 mcg STK-MED ONCE .ROUTE ; Start 04/20/19 at 13:54; Stop 04/20/19 at 14:42; Status DC Lidocaine/Sodium Bicarbonate (Buffered Lidocaine 1%) 12 ml 1X ONCE IJ Last administered on 04/20/19at 14:42; Start 04/20/19 at 14:45; Stop 04/20/19 at 14:46; Status DC Fentanyl Citrate (Fentanyl 2ml Vial) 50 mcg 1X ONCE IV Last administered on 04/20/19at 14:43; Start 04/20/19 at 14:45; Stop 04/20/19 at 14:46; Status DC Fentanyl Citrate (Fentanyl 5ml Vial) 50 mcg 1X ONCE IV ; Start 04/20/19 at 14:45; Stop 04/20/19 at 14:45; Status DC Midazolam HCl (Versed) 2 mg 1X ONCE IV Last administered on 04/20/19at 14:44; Start 04/20/19 at 14:45; Stop 04/20/19 at 14:47; Status DC Ringer's Solution 1,000 ml @ 50 mls/hr Q20H IV ; Start 04/21/19 at 07:00; Stop 04/21/19 at 18:59; Status DC Lidocaine/Sodium Bicarbonate (Buffered Lidocaine 1%) 3 ml STK-MED ONCE .ROUTE ; Start 04/21/19 at 10:24; Stop 04/21/19 at 10:25; Status DC Lidocaine/Sodium Bicarbonate (Buffered Lidocaine 1%) 3 ml STK-MED ONCE .ROUTE ; Start 04/21/19 at 10:25; Stop 04/21/19 at 10:26; Status DC Fentanyl Citrate (Fentanyl 2ml Vial) 100 mcg STK-MED ONCE .ROUTE ; Start 04/21/19 at 10:45; Stop 04/21/19 at 10:46; Status DC Midazolam HCl (Versed) 2 mg STK-MED ONCE .ROUTE ; Start 04/21/19 at 10:45; Stop 04/21/19 at 10:46; Status DC Ketamine HCl (Ketamine) 50 mg STK-MED ONCE .ROUTE ; Start 04/21/19 at 10:45; Stop 04/21/19 at 10:46; Status DC Lidocaine/Sodium Bicarbonate (Buffered Lidocaine 1%) 3 ml 1X ONCE IJ Last administered on 04/21/19at 11:26; Start 04/21/19 at 11:30; Stop 04/21/19 at 11:31; Status DC Lorazepam (Ativan) 0.25 mg PRN Q8HRS PRN PO ANXIETY / AGITATION Last administered on 04/22/19 08:24; Start 04/21/19 at 15:00 Apixaban (Eliquis) 5 mg BID PO Last administered on 04/22/19 08:21; Start 04/21/19 at 21:00 Info (Anti-Coagulation Monitoring By Pharmacy) 1 each PRN DAILY PRN MC SEE COMMENTS Last administered on 04/22/19at 09:58; Start 04/21/19 at 17:45 Prednisone (Prednisone) 40 mg DAILY PO Last administered on 04/22/19at 08:22; Start 04/22/19 at 09:00 Active Scripts Active Reported Potassium Chloride 20 Meq Tablet.er 40 Meq PO DAILY Norvasc (Amlodipine Besylate) 10 Mg Tablet 10 Mg PO DAILY Lisinopril-Hctz 20-12.5 Mg Tab (Lisinopril/Hydrochlorothiazide) 1 Each Tablet 1 Each PO DAILY Lopressor Hct 50-25 Tablet (Metoprolol/Hydrochlorothiazide) 1 Each Tablet 50 Mg PO DAILY Digoxin 125 Mcg Tablet 125 Mcg PO DAILY Pravastatin Sodium 40 Mg Tablet 40 Mg PO DAILY Zantac (Ranitidine Hcl) 150 Mg Tablet 150 Mg PO DAILY Ventolin Hfa (Albuterol Sulfate) 18 Gm Hfa.aer.ad 17 Gm IH PRN DAILY PRN Vitals/I & O Vital Sign - Last 24 Hours 04/21/19 04/21/19 04/21/19 04/21/19 12:40 12:55 15:00 15:30 Temp 98.0 98.0 Pulse 91 93 88 Resp 18 B/P (MAP) 156/92 (113) 151/88 (109) 146/72 (96) Pulse Ox 90 94 O2 Delivery Nasal Cannula Nasal Cannula O2 Flow Rate 4.0 4.0 04/21/19 04/21/19 04/21/19 04/21/19 19:10 19:50 20:08 21:01 Temp 97.6 97.6 Pulse 90 90 Resp 22 B/P (MAP) 142/87 (105) 142/87 Pulse Ox 96 O2 Delivery Nasal Cannula Nasal Cannula Nasal Cannula O2 Flow Rate 4.0 4.0 2.0 04/21/19 04/21/19 04/22/19 04/22/19 21:01 23:27 03:00 07:00 Temp 97.9 97.7 98.0 97.9 97.7 98.0 Pulse 90 92 80 86 Resp 24 22 24 B/P (MAP) 142/87 152/80 (104) 161/95 (117) 158/99 (118) Pulse Ox 95 93 93 O2 Delivery Nasal Cannula Nasal Cannula Nasal Cannula O2 Flow Rate 2.0 4.0 4.0 04/22/19 04/22/19 04/22/19 04/22/19 07:12 08:00 08:21 08:22 Pulse 86 86 B/P (MAP) 158/99 158/99 Pulse Ox 97 O2 Delivery Nasal Cannula Nasal Cannula O2 Flow Rate 4.0 4.0 04/22/19 04/22/19 04/22/19 04/22/19 08:22 08:23 08:23 11:00 Temp 98.2 98.2 Pulse 86 86 86 80 Resp 24 B/P (MAP) 158/99 158/99 158/99 141/81 (101) Pulse Ox 94 O2 Delivery Nasal Cannula O2 Flow Rate 4.0 04/22/19 11:20 O2 Delivery Nasal Cannula O2 Flow Rate 4.0 Intake and Output 04/21/19 04/21/19 04/22/19 15:00 23:00 07:00 Intake Total 0 ml 420 ml Output Total 250 ml 250 ml Balance 0 ml -250 ml 170 ml RIK MURRAY MD Apr 22, 2019 12:34
[2019-04-22] MEDS ORDERED: HYDR-2868 PO (12:51)
[2019-04-22] MEDS ORDERED: APIX5TAB PO (12:51)
[2019-04-22] MEDS ORDERED: LISI-130 PO (12:51)
[2019-04-22] MEDS ORDERED: AZIT250T6 PO (12:51)
[2019-04-22] MEDS ORDERED: PRED20TA PO (12:51)
[2019-04-22] MEDS ORDERED: METO25TA4 PO (12:51)
--- NOTE | 2019-04-22 12:52 | DISCH ---
DISCHARGE INSTRUCTIONS Condition on Discharge Condition on Discharge: Stable Activity After Discharge Activity Instructions for Disc: Activity as tolerated, Other, see below Bathing Instructions: Shower-keep dressing dry, No Tub Bath until see Lifting Instructions after Dis: No pulling or pushing, Do not lift >10 pounds Exercise Instruction after Dis: Walk 10 min, 3 x per day, Walk 15 min, 3 x per day, Walk 30 min, 3 x per week Driving Instructions after Dis: No driving for 2 weeks Weight Bearing Status after Di: No restrictions Diet after Discharge Diet after Discharge: Regular Diet Texture: Regular Checks after Discharge DC Comment: oxygen 1LNC continously Contacting the [facility] after DC Call your doctor for: If your condition worsens Follow-Up Follow up with: dr. ortega next week Follow Up With: dr. rocha 04/26 Treatment/Equipment after DC Adaptive Equipment Issued: None Comment: RIK Mendieta MD Apr 22, 2019 12:52
--- NOTE | 2019-04-22 12:59 | PDOC ---
Provider Note Provider Note discharge summary dictated # [id number] RIK MURRAY MD Apr 22, 2019 12:59
--- NOTE | 2019-04-22 13:26 | DS ---
DATE OF DISCHARGE: 04/22/2019 CONSULTANTS: Include Dr. Rubalcava and Dr. Ambriz and also Dr. Martel. PROCEDURE: Needle aspirate biopsy of a right upper lobe lung nodule. FINAL DIAGNOSES: 1. Acute exacerbation of chronic obstructive pulmonary disease. 2. Paroxysmal atrial fibrillation. 3. Right upper lobe lung nodule. 4. Accelerated hypertension. 5. Hypokalemia. 6. Hyponatremia. 7. Coronary artery disease noted on a CAT scan of the chest. 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 She denies any wheezing, fever or chills. In the Emergency Room, she was noted to be in atrial fibrillation. Her EKG showed a ventricular rate of 125. Heart rate then dropped into 80s and 90s in a controlled atrial fibrillation. Metoprolol was increased to 75 mg b.i.d., but later decreased back to 50 mg b.i.d. Chest x-ray showed a 1.5-cm right upper lobe lung nodule. CAT scan and chest angiogram was negative for pulmonary embolus, but showed a right upper lobe lung nodule. The patient was treated with oxygen, nebulizer treatments, IV Solu-Medrol, antibiotics. She had acute bronchitis. She was seen in consultation by Dr. Rubalcava and the patient seen by Dr. Martel who did an aspiration needle biopsy of the right upper lobe lung nodule and pathology is pending. She was checked by the respiratory therapist who noted that the patient needed to be on oxygen 1 liter per nasal cannula rest and walking. We will set that up as an outpatient. Her blood pressure medication was adjusted and she was told to make an appointment to see Dr. Rincon in the office next week and also see Dr. Rubalcava in the office next 04/26/2019. He will go over the lung biopsy results with her. DISCHARGE MEDICATIONS: She will be dismissed to home on amlodipine 10 mg every day, digoxin 125 mcg every day, Eliquis 5 mg b.i.d., lisinopril 40 mg every day and she will discontinue the lisinopril HCT and hydrochlorothiazide. She will be dismissed on metoprolol 50 mg b.i.d. She will discontinue the potassium chloride. She will take pravastatin 40 mg every day, ProAir inhaler p.r.n., Zantac 150 mg every day, oxygen 1 liter per nasal cannula continuously, Zithromax 250 mg one more day, hydralazine 25 mg t.i.d., lisinopril 40 mg every day. Prednisone she will take 40 mg for two days, 30 mg for two days, 20 mg for two days, 10 mg for two days and then stop. She will make an appointment to see Dr. Rincon in the office next week and Dr. Rubalcava on 04/26/2019. RIK RINCON MD DR: PATRICIA/kaya JOB#: [id number] / [id number]
--- NOTE | 2019-04-22 13:32 | SNU/HH DC ---
DISCHARGE WITH HOME HEALTH DISCHARGE INFORMATION: Discharge Date: Apr 22, 2019 Final Diagnosis: Problems Medical Problems: (1) Acute pulmonary edema Status: Acute (2) COPD exacerbation Status: Acute (3) HTN (hypertension) Status: Acute Condition on Discharge: Stable HOME HEALTH: Face to Face: I certify this patient is under my care and that I, or a nurse practitioner or physician's refinery operator assistant working with me, had a face to face encounter that meets the physician face to face encounter requirements with this patient on [04/22/19]. RN For Eval/Treatment: Yes Pt Meets Homebound Status: Limited distance walking POST DISCHARGE ORDERS: Activity Instructions for Disc: Activity as tolerated, Other, see below Weight Bearing Status after Di: No restrictions Bathing Instructions: Shower-keep dressing dry, No Tub Bath until see CHECKS AFTER DISCHARGE: Comment: Back FOLLOW-UP: Follow up with: dr. murray next week Follow Up With: dr. rocha 04/26 TREATMENT/EQUIPMENT ORDERS: Adaptive Equipment Issued: None Discharge Respiratory Equipmen: Oxygen CERTIFICATION STATEMENT: Certification Statement: Certification Statement: Based on the above finding, I certify that this patient is confined to the home and needs intermittent long-term care, physical therapy and/or speech therapy, or continues to need occupational therapy.~ This patient is under my care, and I have initiated the establishment of the plan of care.~ This patient will be followed by myself or a community physician who will periodically review the plan of care. Home Meds Active Scripts Prednisone (PREDNISONE) 20 Mg Tablet, 40 MG PO DAILY for copd for 8 Days, #16 TAB prednisone 40 mg daily for 2 days then 30 mg daily for 2 days then 20 mg daily for 2 days then 10 mg daily for 2 days then stop Prov:RIK MURRAY MD 04/22/19 Lisinopril (LISINOPRIL) 40 Mg Tablet, 40 MG PO DAILY for HTN, #30 TAB Prov:RIK MURRAY MD 04/22/19 Metoprolol Tartrate (METOPROLOL TARTRATE) 25 Mg Tablet, 50 MG PO BID for HTN, #60 TAB Prov:RIK MURRAY MD 04/22/19 Hydralazine Hcl (HYDRALAZINE HCL) 25 Mg Tablet, 25 MG PO TID for HTN, #90 TAB Prov:RIK MURRAY MD 04/22/19 Apixaban (ELIQUIS) 5 Mg Tablet, 5 MG PO BID for PAF, #60 TAB Prov:RIK MURRAY MD 04/22/19 Azithromycin (AZITHROMYCIN TABLET) 250 Mg Tablet, 250 MG PO DAILY for acute bronchitis, #1 TAB Prov:RIK MURRAY MD 04/22/19 Reported Medications Amlodipine Besylate (NORVASC) 10 Mg Tablet, 10 MG PO DAILY, TAB 03/13/14 Digoxin (DIGOXIN) 125 Mcg Tablet, 125 MCG PO DAILY, TAB 03/13/14 Pravastatin Sodium (PRAVASTATIN SODIUM) 40 Mg Tablet, 40 MG PO DAILY, TAB 03/13/14 Ranitidine Hcl (ZANTAC) 150 Mg Tablet, 150 MG PO DAILY, TAB 03/13/14 Albuterol Sulfate (VENTOLIN HFA INHALER) 18 Gm Hfa.aer.ad, 17 GM IH PRN DAILY PRN for SHORTNESS OF BREATH, INH 03/13/14 Discontinued Reported Medications Potassium Chloride (POTASSIUM CHLORIDE) 20 Meq Tablet.er, 40 MEQ PO DAILY, TAB 03/13/14 Lisinopril/Hydrochlorothiazide (LISINOPRIL-HCTZ 20-12.5 MG TAB) 1 Each Tablet, 1 EACH PO DAILY, TAB 03/13/14 Metoprolol/Hydrochlorothiazide (LOPRESSOR HCT 50-25 TABLET) 1 Each Tablet, 50 MG PO DAILY, TAB 03/13/14 RIK MURRAY MD Apr 22, 2019 13:32
[2019-04-22 15:00] VITALS: BP 143/102
[2019-04-22 19:45] VITALS: BP 142/91
[2019-04-22] MEDS: ATORVASTATIN CALCIUM 10 MG TABLET. PO SCH (21:21)
[2019-04-22] MEDS: FAMOTIDINE 20 MG TABLET. PO SCH (21:21)
[2019-04-22] MEDS: METOPROLOL TART IMMED RELEASE 50 MG TABLET. PO SCH (21:22)
[2019-04-22 23:25] VITALS: BP 149/84
[2019-04-23 03:30] VITALS: BP 150/87
--- NOTE | 2019-04-23 06:54 | PDOC ---
PULMONARY PROGRESS NOTES Subjective on , no sob, has occ cough, no pain, is tired, not on home 02 HAD FNA 04/21 Vitals Vital Signs Date Time Temp Pulse Resp B/P (MAP) Pulse Ox O2 Delivery O2 Flow Rate FiO2 04/23/19 03:30 98.0 97 24 150/87 (108) 98 Nasal Cannula 2.0 98.0 ROS: No Nausea, No Chest Pain, No Abdominal Pain, No Increase Cough Lungs: Crackles Cardiovascular: S1, S2 Abdomen: Soft, Non-tender Neuro Exam: Alert Extremities: No Edema Skin: Warm Labs Laboratory Tests Test 04/21/19 07:29 04/21/19 16:49 04/21/19 20:48 04/22/19 04:15 Glucose (Fingerstick) 131 mg/dL (70-99) 127 mg/dL (70-99) 153 mg/dL (70-99) White Blood Count 12.4 x10^3/uL (4.0-11.0) Red Blood Count 5.27 x10^6/uL (3.50-5.40) Hemoglobin 17.0 g/dL (12.0-15.5) Hematocrit 51.0 % (36.0-47.0) Mean Corpuscular Volume 97 fL (79-100) Mean Corpuscular Hemoglobin 32 pg (25-35) Mean Corpuscular Hemoglobin Concent 33 g/dL (31-37) Red Cell Distribution Width 15.4 % (11.5-14.5) Platelet Count 235 x10^3/uL (140-400) Neutrophils (%) (Auto) 93 % (31-73) Lymphocytes (%) (Auto) 5 % (24-48) Monocytes (%) (Auto) 3 % (0-9) Eosinophils (%) (Auto) 0 % (0-3) Basophils (%) (Auto) 0 % (0-3) Neutrophils # (Auto) 11.5 x10^3uL (1.8-7.7) Lymphocytes # (Auto) 0.6 x10^3/uL (1.0-4.8) Monocytes # (Auto) 0.3 x10^3/uL (0.0-1.1) Eosinophils # (Auto) 0.0 x10^3/uL (0.0-0.7) Basophils # (Auto) 0.0 x10^3/uL (0.0-0.2) Sodium Level 139 mmol/L (136-145) Potassium Level 4.9 mmol/L (3.5-5.1) Chloride Level 103 mmol/L (98-107) Carbon Dioxide Level 29 mmol/L (21-32) Anion Gap 7 (6-14) Blood Urea Nitrogen 38 mg/dL (7-20) Creatinine 1.0 mg/dL (0.6-1.0) Estimated GFR (Cockcroft-Gault) 64.6 Glucose Level 157 mg/dL (70-99) Calcium Level 8.8 mg/dL (8.5-10.1) Test 04/22/19 11:30 04/22/19 16:41 04/22/19 21:04 Glucose (Fingerstick) 115 mg/dL (70-99) 123 mg/dL (70-99) 268 mg/dL (70-99) Laboratory Tests Test 04/22/19 11:30 04/22/19 16:41 04/22/19 21:04 Glucose (Fingerstick) 115 mg/dL (70-99) 123 mg/dL (70-99) 268 mg/dL (70-99) Medications Active Scripts Medications Dose Route/Sig Max Daily Dose Days Date Category Potassium Chloride 20 Meq Tablet.er 40 Meq PO DAILY 03/13/14 Reported Norvasc (Amlodipine Besylate) 10 Mg Tablet 10 Mg PO DAILY 03/13/14 Reported Lisinopril-Hctz 20-12.5 Mg Tab (Lisinopril/Hydrochlorothiazide) 1 Each Tablet 1 Each PO DAILY 03/13/14 Reported Lopressor Hct 50-25 Tablet (Metoprolol/Hydrochlorothiazide) 1 Each Tablet 50 Mg PO DAILY 03/13/14 Reported Digoxin 125 Mcg Tablet 125 Mcg PO DAILY 03/13/14 Reported Pravastatin Sodium 40 Mg Tablet 40 Mg PO DAILY 03/13/14 Reported Zantac (Ranitidine Hcl) 150 Mg Tablet 150 Mg PO DAILY 03/13/14 Reported Ventolin Hfa (Albuterol Sulfate) 18 Gm Hfa.aer.ad 17 Gm IH PRN DAILY PRN 03/13/14 Reported Impression . IMPRESSION: 1. Acute hypoxemic respiratory failure. 2. Acute exacerbation of chronic obstructive pulmonary disease. 3. [id number] diastolic heart failure. 4. Paroxysmal atrial fibrillation. 5. Incidental finding of right upper lobe noncalcified nodule. S/P FNA 04/21 6. Coronary artery disease. 7. Hyperlipidemia. 8. Hyponatremia. 9. History of cerebrovascular accident. 10. Colon cancer. 11. Tobacco dependence. Plan . prednisone 40 mg daily w taper by 10 mg q 3d FOLLOW UP WITH dr rocha ON WEDNESDAY s/p ct guided bx, path pending cont SANDEEP NINA advised to quit smoking for ever discussed w pt, rn SHANNEN BELTRAN MD Apr 23, 2019 06:54
[2019-04-23 07:00] VITALS: BP 150/101
[2019-04-23] MEDS: IPRATRPIUM/ALBUTEROL 0.5/2.5MG 3 ML NEBU. NEB SCH (07:48)
[2019-04-23] MEDS: INSULIN LISPRO 300 UNITS/3 ML INSULN.PEN. SQ SCH (08:00)
[2019-04-23] MEDS: LISINOPRIL 20 MG TABLET PO SCH (08:10)
[2019-04-23] MEDS: NICOTINE 21MG PATCH. TD SCH (08:10)
[2019-04-23] MEDS: predniSONE 20 MG TABLET PO SCH (08:10)
[2019-04-23] MEDS: ASPIRIN CHEWABLE 81 MG TABLET. PO SCH (08:11)
[2019-04-23] MEDS: APIXABAN 5 MG TABLET. PO SCH (08:11)
[2019-04-23] MEDS: hydrALAZINE 25 MG TABLET PO SCH (08:11)
[2019-04-23] MEDS: LACTOBACILLUS RHAMNOSUS GG 1 CAPSULE. PO SCH (08:11)
[2019-04-23] MEDS: MULTIVITAMIN with MINERAL TABLET. PO SCH (08:11)
[2019-04-23] MEDS: DIGOXIN 125 MCG TABLET. PO SCH (08:11)
[2019-04-23] MEDS: AZITHROMYCIN 250 MG TABLET. PO SCH (08:11)
[2019-04-23 08:12] VITALS: BP 150/101
[2019-04-23] MEDS: METOPROLOL TART IMMED RELEASE 50 MG TABLET. PO SCH (08:12)
[2019-04-23] MEDS: amLODIPine BESYLATE 10 MG TABLET PO SCH (08:12)
[2019-04-23] MEDS: ANTI-COAG MONITOR BY PHARMACY. MC PRN (10:48)
--- NOTE | 2019-04-24 10:28 | RAD ---
CT-guided biopsy, right upper lobe pulmonary nodule 04/21/2019 Indication: New right upper lobe nodule concerning for malignancy Discussion: Risks and benefits of the procedure were discussed the patient. Informed consent was obtained. Timeout procedure was performed. Patient was placed in the prone position. Upper chest was prepped and draped using sterile barrier technique. CT imaging redemonstrates a rounded nodule in the right upper lobe. 1% lidocaine was administered for local anesthesia. Under intermittent CT guidance a 17-gauge needle was advanced into the upper lobe nodule. Multiple core biopsies were obtained. Samples were placed in formalin. The needle was removed. Manual pressure was held. Mild perilesional hemorrhage is noted, not unexpected. No pneumothorax is identified. The patient tolerated the procedure well and returned to the unit in stable condition. Anesthesia: Local only Impression: CT-guided biopsy, right upper lobe nodule
== END 2019-04-23 12:15 | disposition home health service (06) | DRG 291 ==
LOC: ER 05:15 → 2 NORTH 08:47
PROVIDERS: ADMIT Internal Medicine; ATTEND Internal Medicine
PROC: 0BBC3ZX Excision of Right Upper Lung Lobe, Percutaneous Approach, Diagnostic (ICD-10-PCS; principal; 2019-04-21)
DX: I11.0 Hypertensive heart disease with heart failure (principal); J96.01 Acute respiratory failure with hypoxia; J98.11 Atelectasis; E87.1 Hypo-osmolality and hyponatremia; I48.1 Persistent atrial fibrillation; I69.351 Hemiplegia and hemiparesis following cerebral infarction affecting right dominant side; R91.1 Solitary pulmonary nodule; I50.33 Acute on chronic diastolic (congestive) heart failure; J43.9 Emphysema, unspecified; J20.9 Acute bronchitis, unspecified; I48.0 Paroxysmal atrial fibrillation; E87.6 Hypokalemia; I25.10 Atherosclerotic heart disease of native coronary artery without angina pectoris; E78.5 Hyperlipidemia, unspecified; M81.0 Age-related osteoporosis without current pathological fracture; F41.9 Anxiety disorder, unspecified; R73.9 Hyperglycemia, unspecified; M19.90 Unspecified osteoarthritis, unspecified site; F17.210 Nicotine dependence, cigarettes, uncomplicated; T38.0X5A Adverse effect of glucocorticoids and synthetic analogues, initial encounter; Y92.89 Other specified places as the place of occurrence of the external cause; Z79.01 Long term (current) use of anticoagulants; Z87.11 Personal history of peptic ulcer disease; Z86.010 Personal history of colon polyps; Z90.710 Acquired absence of both cervix and uterus; Z87.01 Personal history of pneumonia (recurrent); Z85.038 Personal history of other malignant neoplasm of large intestine; Z90.49 Acquired absence of other specified parts of digestive tract; Z90.3 Acquired absence of stomach [part of]
CPT/HCPCS: 32405; 36415; 71045; 71046; 71250; 71275; 77012; 80048; 80053; 80061; 80162; 82962; 83036; 83735; 83880; 84443; 84484; 85007; 85025; 85379; 85610; 85730; 93005; 93306; 94618; 94640; 94760; 96374; 96375; 96376; J1650; J1940; J2250; J2920; J2930; J3010; J3490; J7030; J7512; J7620; Q0144; Q9967; 99285-25

== ENCOUNTER → 2019-05-18 | Outpatient (CLI) | payer MEDICARE ==
[2019-04-23 08:12] VITALS: BP 150/101
[~2019-05-18] MED LIST changes: +APIX5TAB PO; +AZIT250T6 PO; +HYDR-2868 PO; +LISI-130 PO; +METO25TA4 PO; +PRED20TA PO
--- NOTE | 2019-05-19 09:50 | RAD ---
Examination: PET CT scan skull to midthigh History: Colon cancer. Lung nodule diagnosis. Comparison/Correlation: CT chest abdomen and pelvis 03/10/2012, CTA of the chest 04/17/2019 Findings: PET/CT examination was performed after administration of 15.06 mCi F-18 FDG. Uptake involving the visualized head and neck is normal. The patient's known right upper lobe nodule which abuts the pleura measures 1.5 cm diameter and is unchanged in size upon correlation with recent CTA of the chest. It has intense uptake with SUV max of 5.8. Mild uptake of the right hilar region is present with SUV max of 2.6. This may be artifactual calcification present. Marked coronary arterial calcification is evident. Dilated cardiomegaly noted. Since the previous CT exam, there is now a 1.5 cm diameter nodule at the left lung base within the lower lobe. This has SUV max of 4.4. Centrilobular emphysematous involvement of the lung coh is noted. Multiple small nodules are present involving the lower lobes bilaterally at the lung bases posteriorly. These are greater in number on the right. These are new since the prior CTA exam. These measure less than 0.5 cm diameter. Largest of these measures 0.6 cm diameter on axial image [address] series 3. Uptake is not delineated but this may be due to its small size being below limits of PET resolution. Very small pleural effusions are present greater in size in the right. Small hiatal hernia is present. Extensive low-attenuation involving the liver especially in segments 5, 6, 7, and 8 and to a lesser extent within segments 4A and 4B is identified. This heterogeneous ill-defined low-attenuation region measures up to 13.9 cm x 7.6 cm in the axial plane. Intense uptake involving this mass lesion is present with large central photopenic region. SUV max of up to 6.8 is present. Subtle nodular contour of the liver is evident which may represent underlying fibrotic process or possibly cirrhosis. Spleen is normal size. Gallbladder is not identified consistent with reported surgical history. Suture material involves the stomach and left upper quadrant small bowel. Of the radiotracer within bowel which is physiologic in appearance. Right upper quadrant bowel with suture material noted. Left renal cysts are present. No radiopaque collecting system calculi. Marked calcific involvement of the aorta and iliac arteries as well as other branches of the aorta noted. No suspicious uptake involving the pelvis is seen. There is a region of uptake along the right pelvic sidewall which corresponds to distortion of small bowel. Hysterectomy noted. Impression: Pulmonary nodules are present with uptake of concern for active metastatic disease. There is a new pulmonary nodule at the left lung base since the previous CTA exam. Smaller pulmonary nodules are also present since a CT exam but these are below PET resolution. Metastatic disease or infectious etiology may account for the new pulmonary nodules. Correlate clinically in determining further evaluation. Primary pulmonary neoplastic process accounting for the right lung nodule is not necessarily excluded. Correlate with tissue sampling results. Intense uptake involving the liver within the region of diffuse low-attenuation of concern for interval metastatic involvement in this patient with reported history of colon cancer. This finding is new since the previous CT chest abdomen pelvis exam of 2011. Subtle nodular contour of the liver which is of concern for cirrhosis or other fibrotic process is present. Hepatocellular carcinoma is not entirely excluded as a result.
== END | disposition home or self-care (01) ==
LOC: PETSC 07:44
PROVIDERS: ATTEND Internal Medicine Hematology & Oncology
DX: Z08 Encounter for follow-up examination after completed treatment for malignant neoplasm (principal); R91.8 Other nonspecific abnormal finding of lung field; I25.10 Atherosclerotic heart disease of native coronary artery without angina pectoris; J43.2 Centrilobular emphysema; J90 Pleural effusion, not elsewhere classified; K44.9 Diaphragmatic hernia without obstruction or gangrene; N28.1 Cyst of kidney, acquired; Z90.710 Acquired absence of both cervix and uterus
CPT/HCPCS: 78815; A9552

== ENCOUNTER → 2019-05-24 | Outpatient (CLI) | payer MEDICARE, OTHER ==
--- NOTE | 2019-05-24 14:56 | RAD ---
Ultrasound venous Doppler INDICATION:Bilateral leg swelling. History of lung cancer stage IV. TECHNIQUE: Grayscale, color Doppler and spectral waveform ultrasound images of the bilateral lower extremities deep veins obtained. COMPARISON: None FINDINGS: Limited exam as posterior tibial vein and calf veins are not seen. The interrogated deep veins are compressible and demonstrate evidence of blood flow with normal respiratory variation and response to augmentation. IMPRESSION: Limited exam as calf veins are not seen due to to edema. Otherwise, No sonographic evidence of acute DVT of the lower extremity deep veins. Electronically signed by: Ayaz Goldstein DO (05/24/2019 2:53 PM) [facility]
== END | disposition home or self-care (01) ==
LOC: RAD 12:55
PROVIDERS: ATTEND Internal Medicine
DX: M79.89 Other specified soft tissue disorders (principal); Z85.118 Personal history of other malignant neoplasm of bronchus and lung
CPT/HCPCS: 93970

== ENCOUNTER 2020-10-24 21:37 | Emergency (ER) | payer MEDICARE, OTHER ==
[~2020-10-24] VITALS: Ht 175.3 cm; Wt 43.6 kg
[~2020-10-24 21:37] MED LIST changes: -DIGO125T PO; +DIGO125T3 PO; +LISI1TAB37 PO; -LISI1TAB5 PO; +POTA20TA4 PO; -POTA20TA82 PO
--- NOTE | 2020-10-24 21:59 | PHYS DOC ---
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 fib on Eliquis, COPD, GERD, hypertension, hyperlipidemia, hypertension, COPD, and CVA (r hemoparesis/speech impairment), presents to the ED with her son, complaints of generalized weakness and fatigue, "I don't feel well, no energy." Pt lives independently. Uses cane. Has terminal ca and has refused palliative care help up until now. No known exposure to covid. Is an DNR. Was told 1.5 years ago she had six months to live. Review of Systems: Review of Systems: Constitutional: Denies fever or chills. [] Eyes: Denies change in visual acuity. [] HENT: Denies nasal congestion or sore throat. [] Respiratory: Denies cough or shortness of breath. [] Cardiovascular: Denies chest pain or edema. [] GI: Denies abdominal pain, nausea, vomiting, bloody stools or diarrhea. [] : Denies dysuria. [] Musculoskeletal: Denies back pain or joint pain. [] Integument: Denies rash. [] Neurologic: Denies headache, focal weakness or sensory changes. [] Endocrine: Denies polyuria or polydipsia. [] Lymphatic: Denies swollen glands. [] Psychiatric: Denies depression or anxiety. [] Heart Score: Risk Factors: Risk Factors: DM, Current or recent (<one month) smoker, HTN, HLP, family history of CAD, obesity. Risk Scores: Score 0 - 3: 2.5% MACE over next 6 weeks - Discharge Home Score 4 - 6: 20.3% MACE over next 6 weeks - Admit for Clinical Observation Score 7 - 10: 72.7% MACE over next 6 weeks - Early Invasive Strategies Allergies: Allergies: Allergies Coded Allergies Type Severity Reaction Last Updated Verified No Known Drug Allergies 03/17/14 No Physical Exam: PE: Constitutional: frail, hears better right ear HENT: Normocephalic, atraumatic, Eyes: EOMI, conjunctiva normal, no discharge, moist mucous membranes, scleral icterus Neck: Normal range of motion, supple, Cardiovascular: S1/2 present, regular rhythm Lungs & Thorax: Speaking in full sentences, bilateral equal chest rise, no tachypnea or increased work of breathing Abdomen: soft, no tenderness, obese fluid-filled abdomen with hepatomegaly (mets) Skin: Warm, dry, no erythema, Back: No tenderness, no CVA tenderness. [] Extremities: No tenderness, no cyanosis, mild bl le edema Neurologic: Alert and oriented X 3, normal motor function, normal sensory function, no focal deficits noted. [] Psychologic: Affect normal, judgement normal, mood normal. [] EKG: EKG: Atrial fibrillation at 81 bpm, left axis deviation, OR interval 272, no ST elevations or ST depressions Radiology/Procedures: Radiology/Procedures: IMAGING REPORT Signed PATIENT: VALE AVALOS ACCOUNT: [id number] : 1940 LOCATION: ER AGE: 80 SEX: F EXAM STATUS: REG ER ORD. PHYSICIAN: JUANY WAY DO REASON: weak PROCEDURE: PORTABLE CHEST 1V XR CHEST 1V INDICATION: Reason: weak / Spl. Instructions: / History: . COMPARISON STUDY: PET/CT 05/18/2019. Chest radiograph 04/21/2019 FINDINGS: Lungs: Hyperexpanded lung volume. Increasing size of right upper lobe 3 cm, previously 1.5 cm. No consolidation. Pleura: No pleural effusion or pneumothorax. Heart and Mediastinum: Cardiomegaly. Atherosclerosis of the thoracic aorta. IMPRESSION: 1. No consolidation. 2. Increasing size of right upper lobe 3 cm mass. Electronically signed by: Eula Fonseca MD (10/24/2020 10:26 PM) [facility] DICTATED and SIGNED BY: EULA FONSECA MD DATE: 10/24/20 [id number] Course & Med Decision Making: Course & Med Decision Making Pertinent Labs and Imaging studies reviewed. (See chart for details) Concern for generalized weakness and failure to thrive, suspect related to patient's terminal diagnosis. On reevaluation patient reports she is having normal bowel movements 2-3 every day with no blood. Reports that the top part of her abdomen does not talk to the bottom part and is having lots of gas. Will prescribe Carafate. Admission was considered with son regarding hospice and palliative care evaluation. Son declined and reports he will follow up with primary care physician to reinitiate the services. Will discharge home with strict ED return precautions were given for anuria, fever, fall or trauma, severe abdominal or back pain. Encouraged urgent outpatient follow-up with PMD and nephrology for BRENNAN evaluation. Life-threatening processes were considered but are low suspicion at this time, given history, physical exam and ED workup. Pt was educated on all prescription medications and adverse effects. All patient's questions were answered and pt was stable at time of discharge. Life/limb-threatening differential includes but is not limited to, blood/fluid loss, dehydration, infection/sepsis, shock, electrolyte abnormality, thyroid storm, toxidrome, etc I spoken with the patient and her caregivers. I explained the patient's condition, diagnoses and treatment plan based on the information available to me at this time. I have answered the patient and her caregiver's questions and addressed any concerns. The patient and her caregivers have a good understanding of patient's diagnosis, condition and treatment plan as can be expected at this point. Vital signs have been stable. Patient's condition is stable and appropriate for discharge from the emergency department. Patient will pursue further outpatient evaluation with primary care physician or other designated or consulting physician as outlined in the discharge instructions. The patient and/or caregivers are agreeable to this plan of care and follow-up instructions have been explained in detail. The patient and/or caregivers have received these instructions in written form and have expressed an understanding of the discharge instructions. The patient and/or caregivers are aware that any significant change of condition or worsening of symptoms should prompt immediate return to this or the closest emergency department or call to 911. Taye Disclaimer: Dragbebeto Disclaimer: This electronic medical record was generated, in whole or in part, using a voice recognition dictation system. Departure Departure Impression: Primary Impression: Weakness Additional Impressions: Flatulence BRENNAN (acute kidney injury) Disposition: 01 DC HOME SELF CARE/HOMELESS Condition: STABLE Referrals: RIK MURRAY MD (PCP) in 3-5 days for re-evaluation and discuss hospice Patient Instructions: Acute Kidney Injury, Flatulence, [id number] Additional Instructions: FOLLOW UP WITH NEPHROLOGY: Nephrology MD Mccollum PA Address: [address] [place] [address] [address]. [address] [place] [address] EMERGENCY DEPARTMENT GENERAL DISCHARGE INSTRUCTIONS Thank you for coming to [facility] Emergency Department (ED) today and trusting us with you care. We trust that you had a positive experience in our E mergency Department. If you wish to speak to the department management, you may call the Director at [phone]. YOUR FOLLOW UP INSTRUCTIONS ARE FOLLOWS: 1. Do you have a private Doctor? If you do not have a private doctor, please ask for a resource list of physicians or clinics that may be able to assist you with follow up care. 2. The Emergency Physicain has interpreted your x-rays. The X-Ray specialist will also review them. If there is a change in the findings, you will be notified in 48 hours when at all possible. 3. A lab test or culture has been done, your results will be reviewed and you will be notified if you need a change in treatment. ADDITIONAL INSTRUCTIONS AND INFORMATION: 1. Your care today has been supervised by a physician who is specially trained in emergency care. Many problems require more than one evaluation for a complete diagnosis a nd treatment. We recommend that you schedule your follow up appointment as recommended to ensure complete treatment of you illness or injury. If you are unable to obtain follow up care and continue to have a problem, or if your condition worsens, we recommend that you return to the ED. 2. We are not able to safely determine your condition over the phone nor are we able to give sound medical advice over the phone. For these safety reasons, if you call for medical advice we will ask you to come to the ED for further evaluation. 3. If you have any questions regarding these discharge instructions please call the ED at [phone]. SAFETY INFORMATION: In the interest of safety, wellness, and injury prevention; we encourage you to wear your sealbelt, if you smoke; quite smoking, and we encourage family to use a protective helmet for bicycling and other sporting events that present an increased risk for head injury. IF YOUR SYMPTOMS WORSEN OR NEW SYMPTOMS DEVELOP, OR YOU HAVE CONCERNS ABOUT YOUR CONDITION; OR IF YOUR CONDITION WORSENS WHILE YOU ARE WAITING FOR YOUR FOLLOW UP APPOINTMENT; EITHER CONTACT YOUR PRIMARY CARE DOCTOR, THE PHYSICIAN WHOSE NAME AND NUMBER YOU WERE GIVEN, OR RETURN TO THE ED IMMEDIATELY. Scripts Simethicone (SIMETHICONE) 80 Mg Tab.chew 0.5 TAB PO Q6HRS for gas for 10 Days, #20 TAB 0 Refills Prov: JUANY WAY DO 10/25/[address] DO Oct 24, 2020 21:59
--- NOTE | 2020-10-24 22:29 | RAD ---
XR CHEST 1V INDICATION: Reason: weak / Spl. Instructions: / History: . COMPARISON STUDY: PET/CT 05/18/2019. Chest radiograph 04/21/2019 FINDINGS: Lungs: Hyperexpanded lung volume. Increasing size of right upper lobe 3 cm, previously 1.5 cm. No con solidation. Pleura: No pleural effusion or pneumothorax. Heart and Mediastinum: Cardiomegaly. Atherosclerosis of the thoracic aorta. IMPRESSION: 1. No consolidation. 2. Increasing size of right upper lobe 3 cm mass. Electronically signed by: Jesus Fonseca MD (10/24/2020 10:26 PM) [facility]
[2020-10-24 22:53] LABS: BASO # 0.1 x10^3/uL (0.0-0.2); BASO % 1 % (0-3); EOS % 0 % (0-3); HEMATOCRIT 35.4 % (36.0-47.0); LYMPH # 1.4 x10^3/uL (1.0-4.8); LYMPH % 14 % (24-48); MEAN CORPUSCULAR HEMOGLOBIN 33 pg (25-35); MEAN CORPUSCULAR HGB CONC 34 g/dL (31-37); MEAN CORPUSCULAR VOLUME 99 fL (79-100); MONO # 0.6 x10^3/uL (0.0-1.1); MONO % 5 % (0-9); NEUT # 8.4 x10^3/uL (1.8-7.7); NEUT % 79 % (31-73); PLATELET COUNT 251 x10^3/uL (140-400); RED BLOOD COUNT 3.57 x10^6/uL (3.50-5.40); RED CELL DISTRIBUTION WIDTH 17.7 % (11.5-14.5); WHITE BLOOD COUNT 10.6 x10^3/uL (4.0-11.0)
[2020-10-24 23:01] LABS: PROTHROMBIN TIME PATIENT 13.6 SEC (11.7-14.0)
[2020-10-24 23:21] LABS: INFLUENZA A PATIENT NEGATIVE (NEGATIVE); INFLUENZA B PATIENT NEGATIVE (NEGATIVE)
[2020-10-24 23:22] LABS: CALCIUM 8.9 mg/dL (8.5-10.1); CREATININE 2.1 mg/dL (0.6-1.0); GFR 27.4; POTASSIUM 4.6 mmol/L (3.5-5.1)
[2020-10-24 23:25] LABS: ACETAMIN < 2 mcg/ml (10-30); SALIC < 2.8 mg/dL (2.8-20.0)
[2020-10-24 23:36] LABS: ALBUMIN 2.8 g/dL (3.4-5.0); DIRECT BILIRUBIN 0.8 mg/dL (0.0-0.2); TOTAL BILIRUBIN 1.1 mg/dL (0.2-1.0); TOTAL PROTEIN 6.9 g/dL (6.4-8.2)
[2020-10-24 23:51] LABS: CREATINE KINASE 211 U/L (26-192); MAGNESIUM 2.4 mg/dL (1.8-2.4)
[2020-10-24 23:52] LABS: DIG < 0.2 ng/mL (0.9-2.0)
[2020-10-25 00:06] LABS: BILIRUBIN,URINE NEGATIVE (NEG); CLARITY,URINE CLEAR; COLOR,URINE YELLOW; NITRITE,URINE NEGATIVE (NEG); PROTEIN,URINE 30 mg/dL (NEG-TRACE)
[2020-10-25 00:14] LABS: BARBITURATES NEG (NEG); BENZODIAZEPINES NEG (NEG); CANNABINOIDS NEG (NEG); COCAINE NEG (NEG); METHADONE NEG (NEG); OPIATES NEG (NEG); PHENCYCLIDINE NEG (NEG)
[2020-10-25 00:17] LABS: AMPHETAMINE/METHAMPHETAMINE NEG (NEG)
[2020-10-25 00:26] LABS: AMORPHOUS SEDIMENT,UR PRESENT /HPF; BACTERIA,URINE FEW /HPF (0-FEW); GRANULAR CASTS,URINE OCCASIONAL /HPF; HYALINE CASTS, URINE FEW /HPF; RBC,URINE 0 /HPF (0-2); WBC,URINE RARE /HPF (0-4)
[2020-10-25] MEDS ORDERED: IV NORMAL SALINE 500ML BAG 500 ML IV ONE (00:30)
[2020-10-25] MEDS ORDERED: SIME80TA14 PO (01:08)
[2020-10-25] MEDS ORDERED: SIMETHICONE 80 MG TAB.CHEW PO PRN (01:15)
[2020-10-25 01:51] VITALS: BP 135/93
--- NOTE | 2020-10-25 07:06 | EKG ---
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
--- NOTE | 2020-10-26 15:53 | NUR ---
IP: Informed grandson, DPOA, of negative COVID results. He verbalized understanding and will give her the information.
== END 2020-10-25 02:13 | disposition home or self-care (01) ==
LOC: ER 21:37
DX: R53.1 Weakness (principal); R14.3 Flatulence; Z20.818 Contact with and (suspected) exposure to other bacterial communicable diseases; N17.9 Acute kidney failure, unspecified; I48.20 Chronic atrial fibrillation, unspecified; F17.200 Nicotine dependence, unspecified, uncomplicated; Z85.9 Personal history of malignant neoplasm, unspecified; Z98.890 Other specified postprocedural states
CPT/HCPCS: 36415; 71045; 80048; 80076; 80162; 80307; 80329; 81001; 82550; 83605; 83735; 83880; 84484; 85025; 85610; 85730; 87040; 87804; 93005; 96360; 99285; C9803; J7040; U0003; G0480